=== PATIENT | male | born 1935 | race Caucasian/White ===

== ENCOUNTER 2018-04-02 20:50 | Inpatient (IN) | payer MEDICARE, OTHER ==
[~2018-04-02] VITALS: Ht 177.8 cm; Wt 78.9 kg
[~2018-04-02 20:50] MED LIST: ACET-77 PO; CLOP75TA28 PO; DONE10TA12 PO; DONE5TAB30; DONE5TAB8 PO; MEMA7CAP PO; MULT-35 PO; NORM2DIS3 IV; OMEP20CA12 PO; ONDA4VIA28 IV; OSLT75C PO; PRD20T PO; SIMV20TA3 PO; TRIA16.5 NS
[2018-04-02 21:10] LABS: BASOPHILS % (AUTO) 0 % (0-10); EOSINOPHILS # (AUTO) 0.1 10^3/uL (0.0-0.3); EOSINOPHILS % (AUTO) 2 % (0-10); HEMATOCRIT 41 % (40-54); LYMPHOCYTES # (AUTO) 0.8 X 10^3 (1.0-4.0); LYMPHOCYTES % (AUTO) 12 % (12-44); MEAN CORPUSCULAR HEMOGLOBIN 32 PG (25-34); MEAN CORPUSCULAR HGB CONC 34 G/DL (32-36); MEAN CORPUSCULAR VOLUME 94 FL (80-99); MONOCYTES # (AUTO) 0.8 X 10^3 (0.0-1.0); MONOCYTES % (AUTO) 11 % (0-12); NEUTROPHILS # (AUTO) 5.1 X 10^3 (1.8-7.8); NEUTROPHILS % (AUTO) 74 % (42-75); PLATELET COUNT 230 10^3/uL (130-400); RED BLOOD COUNT 4.37 10^6/uL (4.35-5.85); WHITE BLOOD COUNT 6.8 10^3/uL (4.3-11.0)
[2018-04-02] MEDS ORDERED: ASPIRIN 81 MG CHEW (CHILDREN'S ASA) PO ONE (21:15)
[2018-04-02 21:21] LABS: INR 1.1 (0.8-1.4)
[2018-04-02 21:31] LABS: ALANINE AMINOTRANSFERASE 34 U/L (0-55); ALBUMIN 4.2 GM/DL (3.2-4.5); ALKALINE PHOSPHATASE 79 U/L (40-136); AMYLASE 65 U/L (25-125); BILIRUBIN,TOTAL 1.2 MG/DL (0.1-1.0); BUN/CREATININE RATIO 16; CALCIUM 9.3 MG/DL (8.5-10.1); CARBON DIOXIDE 26 MMOL/L (21-32); CHLORIDE 104 MMOL/L (98-107); CREATINE KINASE 85 U/L (30-200); CREATININE SERUM 0.86 MG/DL (0.60-1.30); GFR ESTIMATED > 60; GLUCOSE 129 MG/DL (70-105); LIPASE 15 U/L (8-78); MAGNESIUM 2.5 MG/DL (1.8-2.4); POTASSIUM 3.6 MMOL/L (3.6-5.0); SODIUM 138 MMOL/L (135-145); TOTAL PROTEIN 6.8 GM/DL (6.4-8.2)
[2018-04-02 21:38] LABS: CREATINE KINASE MB 2.2 NG/ML (<6.6); MYOGLOBIN SERUM 66.4 NG/ML (10.0-92.0)
--- NOTE | 2018-04-02 21:41 | Diagnostic Imaging Report ---
INDICATION: Shortness of breath, chest pain. COMPARISON: 05/26/2015. EXAMINATION: Single view of the chest was obtained. FINDINGS: Complete opacification of the right hemithorax. The heart is enlarged. There is mediastinal shift to the left. The left lung is clear. There is no pneumothorax. Osseous structures are age-appropriate. IMPRESSION: Complete opacification of the right hemithorax, probably large effusion. Underlying mass not excluded. Recommend CT imaging. Dictated by: Dictated on workstation # [id number]
[2018-04-02] MEDS ORDERED: IOHEXOL 350 MG/ML 150 ML (OMNIPAQUE 350) VIAL IV ONE (22:45)
[2018-04-02] MEDS ORDERED: NS 250 ML (IVPB) BAG IV ONE (22:45)
[2018-04-02] MEDS ORDERED: morphine INJ 10 MG/ML 1ML (SYR OR VIAL) IVP STA (22:58)
[2018-04-03] VITALS (8 sets, daily range): BP systolic 115–175; BP diastolic 65–109
[2018-04-03] MEDS ORDERED: ONDANSETRON 4 MG/2 ML (SDV) Z0FRAN ONE (01:28)
[2018-04-03] MEDS ORDERED: ONDANSETRON 4 MG/2 ML (SDV) Z0FRAN IVP PRN (01:30)
[2018-04-03] MEDS ORDERED: ESCI10TA55 PO (02:20)
[2018-04-03] MEDS ORDERED: MEMA14CA5 PO (02:20)
[2018-04-03] MEDS ORDERED: ASPI-808 PO (02:20)
[2018-04-03] MEDS ORDERED: ATOR10TA66 PO (02:20)
[2018-04-03] MEDS ORDERED: morphine INJ 4 MG/ML 1 ML (VIAL/SYRINGE) IV PRN (03:30)
--- NOTE | 2018-04-03 05:15 | ED Chest Pain ---
General Chief Complaint: Chest Pain Stated Complaint: LARGE PLEURAL EFFUSION W COLLAPSE OF RT LUNG Nursing Triage Note: PT AMB TO ED REPORTING DISCOMFORT IN CHEST. VAGUE DESCRIPTIONS AND HX OFFERED. PT ACCOMPANIED BY A FEMALE FRIEND REPORTING DPOA. PT HAS DEMENTIA. SOA IS NOTED Nursing Sepsis Screen: No Definite Risk Source: patient (POOR HISTORIAN, HX OF DEMENTIA), other (FEMALE FRIEND / ALSO DPOA GIVES MOST OF INFORMATION) History of Present Illness Date Seen by Provider: Apr 02, 2018 Time Seen by Provider: 21:00 Initial Comments PT ARRIVES VIA POV WITH FEMALE FRIEND PT STATES "JUST GOT DIZZY" INITIALLY PT COULD NOT GIVE ANY OTHER SYMPTOMS, AND DENIED CHEST PAIN PT LATER ADMITS TO SHORTNESS OF BREATH ON DIRECT QUESTIONING, BUT DOES NOT VOLUNTEER THIS INFORMATION. FEMALE WITH PT STATES THAT 15 MINUTES PRIOR TO ARRIVAL, PT WAS C/O CHEST PAIN AND HE LOOKED SHORT OF BREATH. SYMPTOMS BEGAN WHILE SITTING AND WATCHING TV. NO OTHER INFORMATION IS OBTAINABLE AT THIS TIME PCP: DR. STRONG Allergies and Home Medications Allergies Coded Allergies: No Known Drug Allergies (Unverified , 10/23/11) Home Medications Acetaminophen 500 Mg Tablet, 500 MG PO Q4H PRN for MILD PAIN Prescribed by: BOSTON BARGER on 05/31/15 0948 Aspirin 325 Mg Tablet, 325 MG PO DAILY, (Reported) Atorvastatin Calcium 10 Mg Tablet, 10 MG PO HS, (Reported) Clopidogrel Bisulfate 75 Mg Tablet, 75 MG PO DAILY Prescribed by: BOSTON BARGER on 05/31/15 0948 Donepezil HCl 10 Mg Tablet, 10 MG PO HS, (Reported) Escitalopram Oxalate 10 Mg Tablet, 10 MG PO DAILY, (Reported) Memantine HCl 14 Mg Cap.spr.24, 14 MG PO DAILY, (Reported) Multivitamin 1 Each Tablet, 1 TAB PO DAILY, (Reported) Patient Home Medication List Home Medication List Reviewed: Yes Review of Systems Constitutional: see HPI, dizziness, weight loss (7# LOSS IN LAST MONTH), other (MINIMAL INFORMATION OBTAINABLE FROM PT) Respiratory: See HPI, Shortness of Air Cardiovascular: See HPI, Chest Pain Past [place]ae-Qpoezo-Yzjtxs Hx Patient Social History Alcohol Use: Denies Use Recreational Drug Use: No 2nd Hand Smoke Exposure: No Recent Foreign Travel: No Contact w/Someone Who Travel: No Recent Infectious Disease Expo: No Recent Hopitalizations: No Immunizations Up To Date Date of Pneumonia Vaccine: May 10, 2010 Date of Influenza Vaccine: May 11, 2015 Seasonal Allergies Seasonal Allergies: No Past Medical History Surgeries: Yes Abdominal, Appendectomy Respiratory: No Currently Using CPAP: No Currently Using BIPAP: No Cardiac: Yes High Cholesterol Neurological: Yes Dementia, Stroke Reproductive Disorders: No Sexually Transmitted Disease: No Genitourinary: No Gastrointestinal: No Musculoskeletal: No Endocrine: No HEENT: No Cancer: Yes (NON-HODGKINS LYMPHOMA, 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 0.0oz. 87.424233cm; 27.6 BMI Method:Stated General Appearance: WD/WN, Other (MILDLY DYSPNEIC) Neck: Normal Inspection, Non Tender, Supple Respiratory: No Accessory Muscle Use, Decreased Breath Sounds; No Rales, No Rhonci; Other (DIMINSHED ON RIGHT. 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 SOMEWHAT CONFUSED TO SITUTAION. POOR MEMORY. ) Skin: Normal Color, Warm/Dry Progress/Results/Core Measures Results/Orders Lab Results Laboratory Tests Test 04/02/18 21:00 Range/Units White Blood Count 6.8 4.3-11.0 10^3/uL Red Blood Count 4.37 4.35-5.85 10^6/uL Hemoglobin 14.0 13.3-17.7 G/DL Hematocrit 41 40-54 % Mean Corpuscular Volume 94 80-99 FL Mean Corpuscular Hemoglobin 32 25-34 PG Mean Corpuscular Hemoglobin Concent 34 32-36 G/DL Red Cell Distribution Width 14.0 10.0-14.5 % Platelet Count 230 130-400 10^3/uL Mean Platelet Volume 10.0 7.4-10.4 FL Neutrophils (%) (Auto) 74 42-75 % Lymphocytes (%) (Auto) 12 12-44 % Monocytes (%) (Auto) 11 0-12 % Eosinophils (%) (Auto) 2 0-10 % Basophils (%) (Auto) 0 0-10 % Neutrophils # (Auto) 5.1 1.8-7.8 X 10^3 Lymphocytes # (Auto) 0.8 L 1.0-4.0 X 10^3 Monocytes # (Auto) 0.8 0.0-1.0 X 10^3 Eosinophils # (Auto) 0.1 0.0-0.3 10^3/uL Basophils # (Auto) 0.0 0.0-0.1 10^3/uL Prothrombin Time 14.0 12.2-14.7 SEC INR Comment 1.1 0.8-1.4 Activated Partial Thromboplast Time 32 24-35 SEC Sodium Level 138 135-145 MMOL/L Potassium Level 3.6 3.6-5.0 MMOL/L Chloride Level 104 98-107 MMOL/L Carbon Dioxide Level 26 21-32 MMOL/L Anion Gap 8 5-14 MMOL/L Blood Urea Nitrogen 14 7-18 MG/DL Creatinine 0.86 0.60-1.30 MG/DL Estimat Glomerular Filtration Rate > 60 BUN/Creatinine Ratio 16 Glucose Level 129 H 70-105 MG/DL Calcium Level 9.3 8.5-10.1 MG/DL Magnesium Level 2.5 H 1.8-2.4 MG/DL Total Bilirubin 1.2 H 0.1-1.0 MG/DL Aspartate Amino Transf (AST/SGOT) 32 5-34 U/L Alanine Aminotransferase (ALT/SGPT) 34 0-55 U/L Alkaline Phosphatase 79 40-136 U/L Total Creatine Kinase 85 30-200 U/L Creatine Kinase MB 2.2 <6.6 NG/ML Myoglobin 66.4 10.0-92.0 NG/ML Troponin I < 0.30 <0.30 NG/ML B-Type Natriuretic Peptide 48.8 <100.0 PG/ML Total Protein 6.8 6.4-8.2 GM/DL Albumin 4.2 3.2-4.5 GM/DL Amylase Level 65 25-125 U/L Lipase 15 8-78 U/L My Orders Orders - TIN RAMOS DO Cbc With Automated Diff (04/02/18 21:04) Magnesium (04/02/18 21:04) Chest 1 View, Ap/Pa Only (04/02/18 21:04) Ekg Tracing (04/02/18 21:04) Cardiac Profile 1 (04/02/18 21:04) Comprehensive Metabolic Panel (04/02/18 21:04) Myoglobin Serum (04/02/18 21:04) Protime With Inr (04/02/18 21:04) Partial Thromboplastin Time (04/02/18 21:04) O2 (04/02/18 21:04) Monitor-Rhythm Ecg Trace Only (04/02/18 21:04) Aspirin Chewable Tablet (Baby Aspirin Ch (04/02/18 21:15) Saline Lock/Iv-Start (04/02/18 21:04) Creatine Kinase (04/02/18 21:04) Creatine Kinase Mb (04/02/18 21:04) Lipase (04/02/18 21:04) Amylase (04/02/18 21:04) BNP (04/02/18 21:04) Ct Angio Chest W (04/02/18 21:41) Iohexol Injection (Omnipaque 350 Mg/Ml 1 (04/02/18 22:45) Ns (Ivpb) (Sodium Chloride 0.9%) (04/02/18 22:45) Medications Given in ED Current Medications Medications Dose Ordered Sig/Erica Route Start Time Stop Time Status Last Admin Dose Admin Aspirin 324 mg ONCE ONCE PO 04/02/18 21:15 04/02/18 21:16 DC 04/02/18 21:17 324 MG Iohexol 150 ml ONCE ONCE IV 04/02/18 22:45 04/02/18 22:46 DC 04/02/18 22:41 125 ML Sodium Chloride 250 ml ONCE ONCE IV 04/02/18 22:45 04/02/18 22:46 DC 04/02/18 22:41 80 ML Vital Signs/I&O 04/02/18 04/02/18 04/02/18 20:51 20:51 20:55 Temp 97.8 Pulse 70 Resp 32 B/P (MAP) 182/113 (136) Pulse Ox 91 96 O2 Delivery Nasal Cannula Room Air Nasal Cannula O2 Flow Rate 2.0 2.00 Blood Pressure Mean: 121 Progress Progress Note : Progress Note O2 SATS 91% ON ROOM AIR, UP TO 96% ON 2L/NC NO DETERIORATION IN PT'S CONDITION DURING ER STAY AFTER REVIEWING RADIOLOGICAL TESTS WITH PT AND FEMALE FRIEND., PT STATES A COUPLE OF TIMES THAT HIS RIGHT CHEST HURTS AND IT FEELS REALLY HEAVY. MORPHINE ORDERED FOR PAIN Initial ECG Impression Date: Apr 02, 2018 Initial ECG Impression Time: 20:58 Initial ECG Rate: 69 Initial ECG Rhythm: Normal Sinus Initial ECG Impression: Nonspecific Changes Diagnostic Imaging Comments CXR--COMPLETE OPACIFICATION OF ENTIRE RIGHT LUNG, PER RADIOLOGIST REPORT @ 5610 CT CHEST ANGIOGRAM--NO CENTRAL P.E. VERY LARGE RIGHT PLEURAL EFFUSION COMPLETELY OPACIFIES RIGHT HEMITHORAX. COMPLETE COLLAPSE OF RIGHT LUNG, NODULAR DENSITIES IN RIGHT LOWER HEMITHORAX, MEDIASTINAL NODES--PER [facility] VIA FAX @ [phone] Reviewed: Reviewed by Me Departure Communication (Admissions) [id number]--SPOKE WITH DR. STRONG, ACCEPTS PT FOR ADMIT. ORDERS NOTED. Impression Primary Impression: LARGE RIGHT PLEURAL EFFUSION Additional Impressions: Collapse of right lung Mediastinal lymphadenopathy Hx of non-Hodgkin's lymphoma Hypoxia Disposition: ADMITTED INPATIENT Condition: Improved Admissions Decision to Admit Reason: Admit from ER (General) Decision to Admit/Date: Apr 02, 2018 Time/Decision to Admit Time: 22:45 Departure-Patient Inst. Referrals: EDSON STRONG DO (PCP) Primary Care Physician TIN RAMOS DO Apr 03, 2018 05:15
[2018-04-03 06:20] LABS: BASOPHILS % (AUTO) 0 % (0-10); EOSINOPHILS % (AUTO) 0 % (0-10); HEMATOCRIT 39 % (40-54); HEMOGLOBIN 13.4 G/DL (13.3-17.7); LYMPHOCYTES # (AUTO) 0.6 X 10^3 (1.0-4.0); LYMPHOCYTES % (AUTO) 6 % (12-44); MEAN CORPUSCULAR HEMOGLOBIN 33 PG (25-34); MEAN CORPUSCULAR HGB CONC 35 G/DL (32-36); MEAN CORPUSCULAR VOLUME 95 FL (80-99); MEAN PLATELET VOLUME 10.6 FL (7.4-10.4); MONOCYTES # (AUTO) 0.8 X 10^3 (0.0-1.0); MONOCYTES % (AUTO) 9 % (0-12); NEUTROPHILS # (AUTO) 7.7 X 10^3 (1.8-7.8); NEUTROPHILS % (AUTO) 85 % (42-75); PLATELET COUNT 193 10^3/uL (130-400); RED BLOOD COUNT 4.09 10^6/uL (4.35-5.85); RED CELL DISTRIBUTION WIDTH 13.6 % (10.0-14.5); WHITE BLOOD COUNT 9.1 10^3/uL (4.3-11.0)
[2018-04-03 06:36] LABS: ALANINE AMINOTRANSFERASE 36 U/L (0-55); ALBUMIN 3.8 GM/DL (3.2-4.5); ALKALINE PHOSPHATASE 77 U/L (40-136); BILIRUBIN,TOTAL 0.9 MG/DL (0.1-1.0); BUN/CREATININE RATIO 16; CALCIUM 8.9 MG/DL (8.5-10.1); CARBON DIOXIDE 25 MMOL/L (21-32); CHLORIDE 103 MMOL/L (98-107); CHOLESTEROL 119 MG/DL (< 200); CREATININE SERUM 0.81 MG/DL (0.60-1.30); GFR ESTIMATED > 60; GLUCOSE 111 MG/DL (70-105); HDL CHOLESTEROL 30 MG/DL (40-60); SODIUM 137 MMOL/L (135-145); TOTAL PROTEIN 6.1 GM/DL (6.4-8.2); TRIGLYCERIDES 102 MG/DL (<150); VLDL CHOLESTEROL 20 MG/DL (5-40)
--- NOTE | 2018-04-03 07:10 | Pulmonary Consultation ---
History of Present Illness History of Present Illness Date of Consultation 04/03/18 07:05 Time Seen by Provider: 07:05 Date of Admission History of Present Illness 82yo with hx of dementia and nonhodgkins lymphoma presented to ED secondary to CP. CT scan of chest was done and showed large right pleural effusion with opacification of the right lung. I am consulted for pulmonary management. No known prior episode. No prior thoracentesis. Allergies and Home Medications Allergies Coded Allergies: No Known Drug Allergies (Unverified , 10/23/11) Home Medications Acetaminophen 500 Mg Tablet, 500 MG PO Q4H PRN for MILD PAIN Prescribed by: BOSTON BARGER on 05/31/15 0948 Aspirin 325 Mg Tablet, 325 MG PO DAILY, (Reported) Atorvastatin Calcium 10 Mg Tablet, 10 MG PO HS, (Reported) Clopidogrel Bisulfate 75 Mg Tablet, 75 MG PO DAILY Prescribed by: BOSTON BARGER on 05/31/15 0948 Donepezil HCl 10 Mg Tablet, 10 MG PO HS, (Reported) Escitalopram Oxalate 10 Mg Tablet, 10 MG PO DAILY, (Reported) Lisinopril 10 Mg Tablet, 10 MG PO DAILY Prescribed by: MELISSA BRANTLEY on 04/09/18 0944 Memantine HCl 14 Mg Cap.spr.24, 14 MG PO DAILY, (Reported) Pantoprazole Sodium 40 Mg Tablet.dr, 40 MG PO DAILY, (Reported) Vit A/C/E/Zinc/Co 1 Cap Capsule, 1 CAP PO BID, (Reported) Past Nqwqnvz-Ubmbtw-Fzrvgw Hx Patient Social History Alcohol Use: Denies Use Recreational Drug Use: No 2nd Hand Smoke Exposure: No Recent Foreign Travel: No Contact w/Someone Who Travel: No Recent Infectious Disease Expo: No Recent Hopitalizations: No Immunizations Up To Date Date of Pneumonia Vaccine: May 10, 2010 Date of Influenza Vaccine: May 11, 2015 Seasonal Allergies Seasonal Allergies: No Past Medical History Surgeries: Yes Abdominal, Appendectomy Respiratory: No Currently Using CPAP: No Currently Using BIPAP: No Cardiac: Yes High Cholesterol Neurological: Yes Dementia, Stroke Reproductive Disorders: No Sexually Transmitted Disease: No Genitourinary: No Gastrointestinal: No Musculoskeletal: No Endocrine: No HEENT: No Cancer: Yes (NON-HODGKINS LYMPHOMA, 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 Dyspnea Gastrointestinal: No: Nausea, Vomiting, Abdominal Pain, Diarrhea, Constipation , Melena, Hematochezia, Other Neurological: Weakness Sepsis Event Evaluation Height, Weight, BMI Height: 5'10.00" Weight: 185lbs. 0.0oz. 83.139089ch; 27.6 BMI Method:Stated Exam Exam Vital Signs Date Time Temp Pulse Resp B/P (MAP) Pulse Ox O2 Delivery O2 Flow Rate FiO2 04/03/18 06:05 97.2 65 16 175/94 (121) 92 Nasal Cannula 2.00 04/03/18 04:00 96.1 67 16 173/96 (121) 92 Nasal Cannula 2.00 04/03/18 01:38 Nasal Cannula 2.00 04/03/18 00:16 96.0 59 18 144/88 (130) 95 Nasal Cannula 2.00 04/03/18 00:00 95.1 62 18 173/109 (130) 93 Nasal Cannula 2.00 04/02/18 20:55 96 Nasal Cannula 2.00 04/02/18 20:51 97.8 70 32 182/113 (136) 91 Room Air 04/02/18 20:51 Nasal Cannula 2.0 I & O 04/03/18 07:00 Intake Total 0 ml Balance 0 ml Height & Weight Height: 5'10.00" Weight: 185lbs. 0.0oz. 83.913314tz; 27.6 BMI Method:Stated General Appearance: WD/WN, Other (MILDLY DYSPNEIC) Neck: Normal Inspection, Non Tender, Supple Respiratory: No Accessory Muscle Use, Decreased Breath Sounds; No Rales, No Rhonci; Other (DIMINSHED ON RIGHT. 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 SOMEWHAT CONFUSED TO SITUTAION. POOR MEMORY. ) Skin: Normal Color, Warm/Dry Results Lab Laboratory Tests 04/02/18 21:00 04/03/18 05:27 Assessment/Plan Assessment/Plan Large right pleural effusion with opacification of the right lung -Will plan on thoracentesis today -Will repeat CT of chest after thoracentesis to r/o Mass and to ensure reexpansion of lung SOB with CP probably secondary to effusion NAILA TORRES DO Apr 03, 2018 07:10
--- NOTE | 2018-04-03 07:19 | Diagnostic Imaging Report ---
PROCEDURE: CT angiography of the chest with contrast. TECHNIQUE: Multiple contiguous axial images were obtained through the chest after uneventful bolus administration of intravenous contrast. Reconstructed CTA MIP acquisitions were also performed. INDICATION: Chest pain and shortness of breath. FINDINGS: There are no filling defects seen within the pulmonary arteries to suggest pulmonary embolism. The thoracic aorta is normal in caliber without evidence of dissection. There is complete collapse of the right lung with a very large right pleural effusion. There is some pleural calcifications. The left lung is clear. There is no pneumothorax. There appears to be gynecomastia bilaterally. There are degenerative changes in the spine. The visualized intra-abdominal structures are unremarkable. IMPRESSION: Very large right pleural effusion with complete opacification of right hemithorax and collapse of the right lung. No evidence of pulmonary embolism or aortic dissection. Calcified nodules in the right lower hemithorax. Dictated by: Dictated on workstation # [id number]
--- NOTE | 2018-04-03 07:45 | History & Physicial ---
History of Present Illness History of Present Illness Reason for visit/HPI Patient has Alzheimer's and unable to give good history. Patient showed up at emergency room with DPOA. Patient complained of shortness of breath and chest pain. Patient has history of non-Hodgkin's lymphoma approximately 25 years ago. Patient does not know the year. 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 Patient is pleasant. Patient has a history of previous CVA on Plavix and aspirin for that Date of Admission Apr 02, 2018 at 22:45 Time Seen by Provider: 07:36 I consulted on this patient on 04/03/18 07:36 Attending Physician Mario Strong DO Admitting Physician Mario Strong DO Consult Allergies and Home Medications Allergies Coded Allergies: No Known Drug Allergies (Unverified , 10/23/11) Home Medications Acetaminophen 500 Mg Tablet, 500 MG PO Q4H PRN for MILD PAIN Prescribed by: BOSTON BARGER on 05/31/15 0948 Aspirin 325 Mg Tablet, 325 MG PO DAILY, (Reported) Atorvastatin Calcium 10 Mg Tablet, 10 MG PO HS, (Reported) Clopidogrel Bisulfate 75 Mg Tablet, 75 MG PO DAILY Prescribed by: BOSTON BARGER on 05/31/15 0948 Donepezil HCl 10 Mg Tablet, 10 MG PO HS, (Reported) Escitalopram Oxalate 10 Mg Tablet, 10 MG PO DAILY, (Reported) Memantine HCl 14 Mg Cap.spr.24, 14 MG PO DAILY, (Reported) Multivitamin 1 Each Tablet, 1 TAB PO DAILY, (Reported) Patient Home Medication List Home Medication List Reviewed: Yes Past Sqdqqht-Fykxbk-Zczrlf Hx Patient Social History Employed/Student: unemployed Alcohol Use: Denies Use Recreational Drug Use: No 2nd Hand Smoke Exposure: No Physical Abuse Screen: No Sexual Abuse: No Recent Foreign Travel: No Contact w/other who traveled: No Recent Hopitalizations: No Recent Infectious Disease Expo: No Immunizations Up To Date Date of Pneumonia Vaccine: May 10, 2010 Date of Influenza Vaccine: May 11, 2015 Seasonal Allergies Seasonal Allergies: No Surgeries Yes Abdominal, Appendectomy Respiratory No Currently Using CPAP: No Currently Using BIPAP: No Cardiovascular Yes High Cholesterol Neurological Yes Dementia, Stroke Reproductive System Hx Reproductive Disorders: No Sexually Transmitted Disease: No Genitourinary No Gastrointestinal No Musculoskeletal No Endocrine History of Endocrine Disorders: No HEENT History of HEENT Disorders: No Cancer Yes (NON-HODGKINS LYMPHOMA, 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53, 1895) Lymphoma Did You Recieve Any Treatments: Yes Type of Treatment: Chemotherapy Psychosocial History of Psychiatric Problem: No Integumentary History of Skin or Integumenta: No Blood Transfusions History of Blood Disorders: No Family Medical History Family Hx: Hypertension 19 FATHER Constitutional: no symptoms reported EENTM: no symptoms reported Respiratory: short of breath Cardiovascular: no symptoms reported Gastrointestinal: no symptoms reported Genitourinary: no symptoms reported Physical Exam Vital Signs Vital Signs - First Documented 04/02/18 20:51 Temp 97.8 Pulse 70 Resp 32 B/P (MAP) 182/113 (136) Pulse Ox 91 O2 Delivery Nasal Cannula O2 Flow Rate 2.0 Capillary Refill : Less Than 3 Seconds Height, Weight, BMI Height: 5'10.00" Weight: 185lbs. 0.0oz. 83.525025wp; 27.6 BMI Method:Stated General Appearance: No Apparent Distress, WD/WN Eyes: Bilateral Eye Normal Inspection HEENT: Normal ENT Inspection Neck: Full Range of Motion Respiratory: Chest Non Tender, No Accessory Muscle Use, No Respiratory Distress , Other (Decreased breath sounds on one side of lung) Cardiovascular: Regular Rate, Rhythm Gastrointestinal: Non Tender, Soft Assessment/Plan Assessment and Plan Large pleural effusion with opacification of right lung. Collapse of right lung. Mediastinal lymphadenopathy. History of non-Hodgkin's lymphoma. Previous CVA. Patient needs thoracentesis and short of breath. Patient to get it today Admission Diagnosis Admission Status: Inpatient Order (span 2 midnights) Reason for Inpatient Admission: Short of the air. Hypoxia. Chest pain. History of non-Hodgkin's lymphoma. Alzheimer's Clinical Quality Measures AMI/AHF: ASA po Prior to arrival: No DVT/VTE Risk/Contraindication: Risk Factor Score Per Nursin RFS Level Per Nursing on Admit: 4+=Very High MARIO STRONG DO Apr 03, 2018 07:44
[2018-04-03] MEDS ORDERED: LIDOCAINE 1% INJ 20 ML 20 ML VIAL ONE (10:01)
--- NOTE | 2018-04-03 10:42 | Pulmonary Procedures ---
Pulmonary Procedures Date of Procedure Date of Service: Apr 03, 2018 Procedure: US guided right complex thoracentesis Preop DX: RIGHT pleural effusion post op DX: 2445cc of yellow fluid obtained from pleural space Complications: None After informed consent obtained US was used to localize pleural fluid. Pt has R pleural effusions. Skin was anesthetized at approximately the 10th ICS posterior axillary line. Thoracentesis needle was advanced through the right 10th ICS posterior axillary line. Needle was removed and catheter left in place.2445cc of yellow fluid obtained using vacuum bottles. Catheter was then removed. Pt tolerated procedure well. No complications noted. stat CXR is pending NAILA TORRES DO Apr 03, 2018 10:42
--- NOTE | 2018-04-03 11:10 | Diagnostic Imaging Report ---
Indication: Post thoracentesis Frontal chest obtained at 1056 hrs am, and compared with 04/02/2018. A large right pleural effusion remains but it has decreased in size compared to yesterday with some aeration of the right upper lobe now present. There is no pneumothorax following thoracentesis. Left lung is clear. The heart is borderline in size. IMPRESSION: No pneumothorax following right thoracentesis. There is some increased aeration of the right apex compared to yesterday. There is still a large amount of residual pleural fluid on the right-side but it has decreased compared to yesterday. Dictated by: Dictated on workstation # [id number]
[2018-04-03] MEDS ORDERED: IOHEXOL 350 MG/ML 100 ML (OMNIPAQUE 350) VIAL IV ONE (11:15)
[2018-04-03] MEDS ORDERED: CATHETER FLUSH 10 ML SYR IV PRN (11:15)
[2018-04-03] MEDS ORDERED: NS 250 ML (IVPB) BAG IV ONE (11:15)
[2018-04-03 11:56] LABS: GLUCOSE,BODY FLUID 55 MG/DL
[2018-04-03 11:57] LABS: BODY FLUID TRIGLYCERIDES 43 MG/DL; LDH,BODY FLUID 142 U/L; TOTAL PROTEIN,BODY FLUID 4.3 G/DL
--- NOTE | 2018-04-03 12:27 | Diagnostic Imaging Report ---
PROCEDURE: CT chest with contrast, CT abdomen and pelvis with and without contrast. TECHNIQUE: Pre and post intravenous contrast axial imaging of the abdomen and pelvis and post contrast axial imaging of the chest were performed. INDICATION: Non-Hodgkin's lymphoma. FINDINGS: The recent CTA chest exam of 04/02/2018 noted that the right lung was completely opacified by atelectasis/infiltrate and fluid. On this exam, there is now partial aeration of the right upper lobe. There is still a sizable right pleural effusion present as well as collapse of the right middle lobe and right lower lobe. The amount of fluid, however, has diminished since the prior exam, and there is no longer any shift of the heart or mediastinum to the left. There is no clear evidence for a mass to account for the pleural fluid or collapse of the right lung base. If further study is desired, however, then bronchoscopy would be recommended. The left lung is generally clear and well aerated. The heart is stable in size. The aorta is not abnormally dilated, and there is still no evidence for a dissection. There is no defect within the pulmonary arteries to indicate a pulmonary embolus, although the pulmonary arteries to the right lung base are difficult to evaluate due to the atelectasis/infiltrate. There is no mediastinal or hilar adenopathy. The thyroid gland is generally unremarkable. The sections through the abdomen and pelvis show no sign of an acute abnormality. The liver, spleen, pancreas, adrenals, kidneys, gallbladder, aorta, and inferior vena cava show no sign of an acute abnormality. The stomach is partially filled with fluid and consequently difficult to assess. There is no evidence for diverticulosis or diverticulitis of the colon. The appendix was not particularly well visualized, but there are no indirect signs of acute appendicitis. The prostate gland is not enlarged. The urinary bladder is grossly unremarkable. The bone windows show no sign of a fracture or of a destructive lesion. IMPRESSION: 1. The appearance of the chest has improved since the prior exam as the right upper lung is better aerated, and there has been a decrease in the amount of fluid in the right lung base. There is no longer any shift of the heart or mediastinum to the left either. The overall appearance of the chest is otherwise stable. 2. There is no mass lesion involving the right lung to account for the atelectasis/infiltrate and pleural fluid. If further study is desired, then bronchoscopy would be recommended. 3. There is no acute abnormality of the abdomen or pelvis. Dictated by: Dictated on workstation # [id number]
[2018-04-03 13:22] LABS: BODY FLUID APPEARENCE CLEAR; BODY FLUID COLOR YELLOW; BODY FLUID RBC COUNT 10 /uL; BODY FLUID SOURCE PLEURAL; BODY FLUID WBC TOTAL COUNT 32 /uL
[2018-04-03 13:35] LABS: BODY FLUID PH 7.7
[2018-04-03 15:06] LABS: BF OTHER CELLS 16 %; LYMPHOCYTES,BODY FLUID 72 %
[2018-04-03 16:33] LABS: HEMOGLOBIN 13.6 G/DL (13.3-17.7)
[2018-04-03] MEDS ORDERED: PANT40TA3 PO (18:26)
[2018-04-03] MEDS ORDERED: ACETAMINOPHEN 500 MG TAB (TYLENOL) PO PRN (19:00)
[2018-04-03] MEDS: DONEPEZIL 10 MG (ARICEPT) TAB PO SCH (20:28)
[2018-04-03] MEDS: ATORVASTATIN 10 MG (LIPITOR) TABLET PO SCH (20:28)
[2018-04-03] MEDS: NS IV 1000 ML 1,000 ML IV SCH (20:29)
--- NOTE | 2018-04-03 20:44 | CONSULTATION REPORT ---
DATE OF SERVICE: 04/03/2018 Patient is admitted to room 405. REFERRING AND PRIMARY PHYSICIAN: Mario David D.O. ASSESSMENT: 1. An 82-year-old male admitted with increasing shortness of breath, cough and chest pressure. 2. Admission scan showing significant right pleural effusion with complete atelectasis of the right lung and shift of mediastinum to the left. This is of undetermined etiology. 3. Remote history of non-Hodgkin's lymphoma treated approximately 30 years ago in [place]. The patient and his DPOA does not remember any other details other than the fact that he was treated probably with ProMACE-CytaBOM regimen for six cycles. RECOMMENDATIONS: 1. Agree with diagnostic and therapeutic thoracentesis. We will await fluid cytology, flow cytometry as well as chemistries to try to determine the etiology. 2. Continue supportive care as you are doing. 3. Once the pathology reports are available, I will meet with the patient and his DPOA and discuss about any further recommendations. HISTORY OF PRESENT ILLNESS: The patient is an 82-year-old male with dementia, who is complaining of increasing shortness of breath and cough since the last one month. His industry analyst mentioned that he started having chest pressure yesterday and he was brought to the emergency room. Scan showed significant right-sided pleural effusion with complete white-out. He underwent diagnostic and therapeutic thoracentesis earlier today with the fluid being sent for appropriate testing. He is breathing better, but still has cough with deep breaths, but he is more comfortable. He denied any chest pressure today. PAST MEDICAL HISTORY: Significant for non-Hodgkin's lymphoma approximately 30 years ago. The patient and his industry analyst remember that he was treated at [place] at [facility] and most likely with the ProMACE-CytaBOM regimen for six cycles. Since then he has not had any recurrence and continued followups for several years. No other major medical problems. PRIOR SURGERIES: Include tonsillectomy and adenoidectomy in childhood as well as an appendectomy. SOCIAL HISTORY: The patient is . He is living with his industry analyst/DPOA, Tom. She is present during the interview. He has a daughter who lives in [place]. He had a son who is . Also has three grandchildren and three great grandchildren. 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 He denied tobacco use, alcohol use or recreational drug use. FAMILY HISTORY: Significant for his mother who of breast cancer at the age of 45 years. His father of coronary artery disease at the age of 53. He has one full sibling, a sister who is alive and lives in [place]. No other major medical problems in the family that he could remember. PHYSICAL EXAMINATION: GENERAL: Today showed an elderly male, well-developed, well-nourished, awake and answering simple questions appropriately, but having difficulty remembering details. VITAL SIGNS: Temperature was 96.5, pulse rate 64, respirations 24, blood pressure 143/70, pulse oximetry 92% on 2 liters of oxygen by nasal cannula. HEENT: Normocephalic with male pattern baldness, extraocular muscles intact, conjunctivae pink, oral mucosa moist. NECK: Supple, with no JVD. No cervical, supraclavicular or axillary lymphadenopathy palpable. CHEST: Symmetrical. Right lung with absent breath sounds in the lower half. A few scattered wheezes in the right upper lung field. Left lung fairly clear to auscultation without wheezes or rales. CARDIOVASCULAR: Regular with a few missed beats. No murmurs or gallops heard. ABDOMEN: Soft, nontender with no hepatosplenomegaly or other masses palpable. EXTREMITIES: Showed no edema. NEUROLOGIC: Showed no focal motor deficits. LABORATORY DATA: CBC done today showed white count of 9.1, hemoglobin 13.4, platelet count 193,000 with neutrophil count 7.7 and lymphocyte count 0.6. Chemistry panel today showed normal electrolytes. BUN was 13 and creatinine 0.81 with GFR more than 60 mL per minute. Nonfasting glucose was 111. Liver function studies were within normal limits. CT angiogram of the chest done today morning showed very large right pleural effusion with complete opacification of right hemithorax and collapse of the right lung. No evidence of pulmonary embolus or aortic dissection. Calcified nodules in the right lower hemithorax. Thank you for allowing me to participate in this patient's care. I will follow the patient with you and make appropriate recommendations. Job ID: [id number] DocumentID: [id number] Dictated Date: 04/03/2018 18:12:30 Flare Breaker Date: 04/03/2018 20:44:02 Dictated By: JEN HOUSTON MD [facility]ENTER[facility]rate[facility]
[2018-04-04 03:12] VITALS: BP 118/71
[2018-04-04 06:23] LABS: HEMOGLOBIN 12.7 G/DL (13.3-17.7); MEAN PLATELET VOLUME 10.3 FL (7.4-10.4); RED BLOOD COUNT 4.01 10^6/uL (4.35-5.85); RED CELL DISTRIBUTION WIDTH 13.7 % (10.0-14.5); WHITE BLOOD COUNT 7.5 10^3/uL (4.3-11.0)
[2018-04-04 06:42] LABS: ALANINE AMINOTRANSFERASE 24 U/L (0-55); ALBUMIN 3.3 GM/DL (3.2-4.5); ALKALINE PHOSPHATASE 68 U/L (40-136); BILIRUBIN,TOTAL 1.1 MG/DL (0.1-1.0); BUN/CREATININE RATIO 14; CALCIUM 8.6 MG/DL (8.5-10.1); CARBON DIOXIDE 26 MMOL/L (21-32); CHLORIDE 103 MMOL/L (98-107); CREATININE SERUM 0.77 MG/DL (0.60-1.30); GFR ESTIMATED > 60; GLUCOSE 104 MG/DL (70-105); SODIUM 136 MMOL/L (135-145); TOTAL PROTEIN 5.1 GM/DL (6.4-8.2)
--- NOTE | 2018-04-04 07:56 | Progress Note (SOAP) ---
Subjective Time Seen by Provider: 07:45 Subjective/Events-last exam Patient had thoracentesis yesterday. Patient not eating much. IV started last night. CAT scan look better yesterday. Waiting for path report. Waiting to see if fluid returns to lung Objective Exam Vital Signs Date Time Temp Pulse Resp B/P (MAP) Pulse Ox O2 Delivery O2 Flow Rate FiO2 04/04/18 03:12 97.7 70 18 118/71 (87) 90 Nasal Cannula 2.00 04/04/18 01:00 68 04/03/18 23:17 98.6 63 15 115/65 (82) 92 Nasal Cannula 2.00 04/03/18 20:29 Nasal Cannula 2.00 04/03/18 19:48 98.1 66 20 146/77 (100) 91 Nasal Cannula 2.00 04/03/18 19:00 61 04/03/18 15:50 96.5 64 24 143/70 (94) 92 Nasal Cannula 2.00 04/03/18 13:00 56 04/03/18 12:00 96.9 55 20 133/73 (93) 92 Nasal Cannula 2.00 04/03/18 08:16 Nasal Cannula 2.00 04/03/18 08:00 97.3 61 18 132/74 (93) 93 Nasal Cannula 2.00 I & O 04/04/18 06:59 Intake Total 880 ml Output Total 825 ml Balance 55 ml Capillary Refill : Less Than 3 Seconds General Appearance: No Apparent Distress, WD/WN HEENT: Normal ENT Inspection Neck: Normal Inspection Respiratory: Chest Non Tender, No Accessory Muscle Use, No Respiratory Distress , Decreased Breath Sounds Cardiovascular: Regular Rate, Rhythm, No Murmur Gastrointestinal: non tender, soft Results Lab Laboratory Tests 04/03/18 16:25 04/04/18 05:58 Laboratory Tests 04/03/18 10:20: Body Fluid Source PLEURAL, Body Fluid Color YELLOW, Body Fluid Appearance CLEAR , Body Fluid pH 7.7, Body Fluid WBC 32, Body Fluid RBC 10, Body Fluid Polynuclear WBCs 8, Body Fluid Mononuclear WBCs 4, Body Fluid Lymphocytes 72, Body Fluid Other Cells 16, Body Fluid Glucose 55, Body Fluid Total Protein 4.3, Body Fluid Lactate Dehydrogenase 142, Body Fluid Triglycerides 43 04/03/18 16:25: Hemoglobin 13.6, Hematocrit 39L 04/04/18 05:58: Hemoglobin 12.7L, Hematocrit 38L, White Blood Count 7.5, Red Blood Count 4.01L, Mean Corpuscular Volume 95, Mean Corpuscular Hemoglobin 32, Mean Corpuscular Hemoglobin Concent 34, Red Cell Distribution Width 13.7, Platelet Count 198, Mean Platelet Volume 10.3, Sodium Level 136, Potassium Level 4.0, Chloride Level 103, Carbon Dioxide Level 26, Anion Gap 7, Blood Urea Nitrogen 11, Creatinine 0.77, Estimat Glomerular Filtration Rate > 60, BUN/Creatinine Ratio 14, Glucose Level 104, Calcium Level 8.6, Total Bilirubin 1.1H, Aspartate Amino Transf (AST/SGOT) 24, Alanine Aminotransferase (ALT/SGPT) 24, Alkaline Phosphatase 68, Total Protein 5.1L, Albumin 3.3 Assessment/Plan Assessment/Plan Assess & Plan/Chief Complaint Large pleural effusion with collapse of lung. Alzheimer's. Patient doesn't know what he eats for breakfast History of non-Hodgkin's lymphoma 30 years ago. Clinical Quality Measures Admission Status Admission Dx Large pleural effusion with opacification of right lung. Collapse of right lung. Mediastinal lymphadenopathy. History of non-Hodgkin's lymphoma. Previous CVA. Patient needs thoracentesis and short of breath. Patient to get it today AMI/AHF: ASA po Prior to arrival: No DVT/VTE Risk/Contraindication: Risk Factor Score Per Nursin RFS Level Per Nursing on Admit: 4+=Very High EDSON STRONG DO Apr 04, 2018 07:56
[2018-04-04 08:00] VITALS: BP 150/88
[2018-04-04] MEDS ORDERED: VIT1CAPS5 PO (08:52)
[2018-04-04] MEDS: PANTOPRAZOLE 40 MG (PROTONIX) TAB PO SCH (09:02)
[2018-04-04] MEDS: MEMANTINE 5 MG (NAMENDA) TABLET PO SCH ×2 (09:02→20:21)
--- NOTE | 2018-04-04 10:05 | Diagnostic Imaging Report ---
PA and lateral chest at 823 hours. INDICATION: Respiratory distress. FINDINGS: The previous exam of 04/03/2018 noted that much of the right midlung and right lung base were obscured by atelectasis/infiltrate and fluid. On this study, the right midlung and right lung base do seem slightly better aerated. However, there is a new area of atelectasis/infiltrate in the right upper lobe. A band of atelectasis/infiltrate has also developed in the left lung base. Left lung is otherwise clear. The heart is stable in size. The mediastinum is not widened. The osseous structures are intact. IMPRESSION: There are mixed results. The right midlung and right lung base do seem somewhat better aerated, but a new area of pneumonia/atelectasis has developed in the right upper lobe. A followup study would be recommended for continued evaluation. Dictated by: Dictated on workstation # [id number]
--- NOTE | 2018-04-04 10:31 | Physical Therapy Evaluation ---
PT Evaluation-General Medical Diagnosis Admission Date Apr 02, 2018 at 22:45 Medical Diagnosis: pleural effusion Onset Date: Apr 02, 2018 Therapy Diagnosis Therapy Diagnosis: debility Height/Weight Height (Feet): 5 Height (Inches): 10.00 Weight (Pounds): 184 Weight (Ounces): 1.6 Precautions Precautions/Isolations: Fall Prevention, Standard Precautions, Pressure Ulcer Weight Bear Status Right Lower Extremity: Right Full Weight Bearing Left Lower Extremity: Left Full Weight Bearing Referral Physician: Frankie Reason for Referral: Evaluation/Treatment Medical History Pertinent Medical History: Dementia, Lymphoma Current History EMS secondary to chest discomfort due to large pleural effusion with right collapsed lung Reviewed History: Yes Social History Home: Single Level Current Living Status: Other Family Prior/[facility] Prior Level of Function Functional [place] Measure 0=Not Assessed/NA 4=Minimal Assistance 1=Total Assistance 5=Supervision or Setup 2=Maximal Assistance 6=Modified [place] 3=Moderate Assistance 7=Complete [place] Bed Mobility: 7 Transfers (B,C,W/C) (FIM): 7 Gait: 7 PT Evaluation-Current Subjective Patient is in bed and agrees to PT. Pain Numeric Pain Scale: 0-No Pain Location: No Pain Reported Objective Patient Orientation: Confused Problem Solving: Poor Attachments: Oxygen, IV ROM/Strength ROM Lower Extremities bilateral LE WNL Strength Lower Extremities 4/5 grossly bilaterally Integumentary/Posture Integumentary refer to nursing notes Bowel Incontinence: No Bladder Incontinence: No Posture WFL Neuromuscular (Tone, Coordination, Reflexes) grossly intact Sensory Vision: Functional Hearing: Functional Sensation Right Lower Extremit: Intact Sensation Left Lower Extremity: Intact Transfers Functional [place] Measure 0=Not Assessed/NA 4=Minimal Assistance 1=Total Assistance 5=Supervision or Setup 2=Maximal Assistance 6=Modified [place] 3=Moderate Assistance 7=Complete [place] Transfers (B, C, W/C) (FIM): 7 Scootin Rollin Supine to/from Sit: 7 Sit to/from Stand: 7 Gait Mode of Locomotion: Walk Anticipated Mode of Locomotion: Walk Gait (FIM): 7 Distance (FIM): 3=150 ft Distance: 175' Gait Level of Assist: 7 Gait Assistive Device: None Comments/Gait Description slightly unsteady with self correct. SAO2 decreased to 87% on RA with activity Balance Sitting Static: Normal Sitting Dynamic: Normal Standing Static: Fair Standing Dynamic: Fair Assessment/Needs 82 y.o. male, will be seen short term by skilled PT to ensure safe return to home with family at maximum LOF. Rehab Potential: Fair PT Short Term Goals Short Term Goals Time Frame: Apr 05, 2018 Transfers (B,C,W/C) (FIM): 7 Gait (FIM): 7 Distance (FIM): 3=150 ft Gait Level of Assist: 7 Gait Assistive Device: None PT Plan Treatment/Plan Treatment Plan: Continue Plan of Care Treatment Plan: Education, Functional Activity Mary, Functional Strength, Gait , Safety, Therapeutic Exercise Treatment Duration: Apr 05, 2018 Frequency: 2 times per week Estimated Hrs Per Day: .25 hour per day Patient and/or Family Agrees t: Yes Discharge Recommendations Therapy D/C Recommendations: Home w/ Family Support Time/GCodes Time In: 925 Time Out: 940 Total Billed Treatment Time: 15 Total Billed Treatment 1 visit EVModC 15 min GILSON LYON PT Apr 04, 2018 10:31
[2018-04-04] MEDS: cefTRIAXone INJECTION 1,000 MG in NS (IVPB) 50 ML IV SCH (10:38)
[2018-04-04] MEDS: AZITHROMYCIN INJECTION 500 MG in NS (IVPB) 250 ML IV SCH (11:10)
[2018-04-04 12:00] VITALS: BP 133/76
[2018-04-04] MEDS: NS IV 1000 ML 1,000 ML IV SCH (12:53)
--- NOTE | 2018-04-04 16:04 | Occupational Therapy Eval ---
OT Evaluation-General/PLF Medical Diagnosis Admission Date Apr 02, 2018 at 22:45 Medical Diagnosis: pleural effusion Onset Date: Apr 02, 2018 Therapy Diagnosis Therapy Diagnosis: decr act tolerance, decr funct mobility Height/Weight Height (Feet): 5 Height (Inches): 10.00 Weight (Pounds): 184 Weight (Ounces): 1.6 Precautions Precautions/Isolations: Fall Prevention, Standard Precautions, Pressure Ulcer Safety Interventions: Bed Exit Alarm, Reorient-Attempt, Reorient-PRN Referral Physician: Frankie Referral Reason: Evaluation/Treatment Medical History Pertinent Medical History: CVA (2014 R sided weakness), Dementia, Lymphoma Additional Medical History Recent weight loss, lymphoma 1988 Current History Admitted through ED with SOB, chest pain. Pleural effusion, with collapsed R lung. Over 2 L fluid removed 04-03. Hypoxia, lymphadenopathy Reviewed History: Yes Social History Home: [facility] Current Living Status: Other Family (jose Santos) ADL-Prior Level of Function ADL PLOF Comments Tom reported that he has been able to manage all of his basic self care tasks and doesn't need initiation cues. She indicated that he is very careful about his personal hygiene. 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 He no longer drives. DME/Equipment Comments No equipment in his bathroom OT Current Status Subjective Pt seen in room, up in bed, agreeable to OT. pain reported 0/10 Appearance Alert, cooperative, poor historian Mental Status/Objective Patient Orientation: Person Attachments: Oxygen, Saline Lock, Telemetry Current Hand Dominance: Right Upper Extremity ROM Grossly WFL bilat Upper Extremity Strength Grossly 4+/5 bilat (slightly less R UE) ADL-Treatment ADL-Current Pt was able to get up from bed and walk 175' with no AD with PT, with O2 dropping to 87% on room air. He is able to feed himself but reported he has no appetite. Pt encouraged to get up in recliner, to increase activity tolerance Functional [place] Measure 0=Not Assessed/NA 4=Minimal Assistance 1=Total Assistance 5=Supervision or Setup 2=Maximal Assistance 6=Modified [place] 3=Moderate Assistance 7=Complete IndependenceIRFPAI Quality Coding Scale 6 Independent with activity with or without an assistive device 5 Patient requires set up or clean up by helper. Patient completes activity by themselves 4 Supervision or touching assist (CGA). [place] provide cues , steadying assist 3 The helper provides less than half the effort to complete the activity 2 The helper provides more than half the effort to complete the activity 1 Dependent. The helper does all the effort to complete an activity 7 Patient refused to complete or attempt activity 9 The patient did not perform the activity before the current illness or injury 88 Not attempted due to Medical conditions or safety concerns Education OT Patient Education: Purpose of tx/functional activities, Rehab process Teaching Recipient: Patient, Primary Caregiver Teaching Methods: Discussion Response to Teaching: Verbalize Understanding OT Short Term Goals Short Term Goals Transfers (B,C,W/C) (FIM): 7 OT Care Home Goals Care Home Goals Time Frame: Apr 11, 2018 Eating (FIM): 6 Grooming(FIM): 6 Bathing(FIM): 5 Upper Body Dressing(FIM): 6 Lower Body Dressing(FIM): 6 Toileting(FIM): 6 Toilet/Commode Transfer(FIM): 6 Shower Transfer(FIM): 5 Additional Goals: 1-Demonstrate ADL Tasks, 2-Verbalize Understanding, 3- ImproveStrength/Mary 1=Demonstrate adherence to instructed precautions during ADL tasks. 2=Patient will verbalize/demonstrate understanding of assistive devices/ modifications for ADL. 3=Patient will improve strength/tolerance for activity to enable patient to perform ADL's. OT Education/Plan Problem List/Assessment Assessment: Decreased Activ Tolerance, Dependent Transfers Pt woould benefit from skilled OT to increase his independence in basic self care and to increase his activity tolerance to allow him to safely return home. Discharge Recommendations Plan/Recommendations: Continue POC Treatment Plan/Plan of Care Patient would benefit from OT for education, treatment and training to promote independence in ADL's, mobility, safety and/or upper extremity function for ADL' s. Treatment Duration: Apr 11, 2018 Frequency: 5 times per week Estimated Hrs Per Day: .5 hour per day Agreement: Yes Rehab Potential: Fair Time/GCodes Start Time: 15:35 Stop Time: 15:45 Total Time Billed (hr/min): 10 Billed Treatment Time visit, 10 minutes evaluation low intensity NAV GALVAN OT Apr 04, 2018 16:04
[2018-04-04 16:29] VITALS: BP 128/70
[2018-04-04] MEDS: DONEPEZIL 10 MG (ARICEPT) TAB PO SCH (20:21)
[2018-04-04] MEDS: ATORVASTATIN 10 MG (LIPITOR) TABLET PO SCH (20:21)
[2018-04-04] MEDS ORDERED: RT-ALBUTEROL/IPRATROPIUM 3 ML (DUONEB) VIAL ONE (20:27)
[2018-04-04 20:54] VITALS: BP 173/81
[2018-04-04] MEDS ORDERED: RT-ALBUTEROL/IPRATROPIUM 3 ML (DUONEB) VIAL INH PRN (21:00)
[2018-04-04 23:46] VITALS: BP 151/76
[2018-04-05 04:04] VITALS: BP 150/74
[2018-04-05] MEDS: PANTOPRAZOLE 40 MG (PROTONIX) TAB PO SCH (06:12)
[2018-04-05] MEDS: NS IV 1000 ML 1,000 ML IV SCH (06:12)
[2018-04-05] MEDS: RT-ALBUTEROL/IPRATROPIUM 3 ML (DUONEB) VIAL INH SCH ×3 (06:55→19:01)
[2018-04-05 07:12] LABS: HEMOGLOBIN 13.1 G/DL (13.3-17.7); MEAN PLATELET VOLUME 10.3 FL (7.4-10.4); RED BLOOD COUNT 3.98 10^6/uL (4.35-5.85); RED CELL DISTRIBUTION WIDTH 13.4 % (10.0-14.5); WHITE BLOOD COUNT 7.1 10^3/uL (4.3-11.0)
[2018-04-05 07:35] LABS: ALANINE AMINOTRANSFERASE 21 U/L (0-55); ALBUMIN 3.5 GM/DL (3.2-4.5); ALKALINE PHOSPHATASE 64 U/L (40-136); BILIRUBIN,TOTAL 1.3 MG/DL (0.1-1.0); BUN/CREATININE RATIO 9; CALCIUM 8.7 MG/DL (8.5-10.1); CARBON DIOXIDE 26 MMOL/L (21-32); CHLORIDE 101 MMOL/L (98-107); CREATININE SERUM 0.76 MG/DL (0.60-1.30); GFR ESTIMATED > 60; GLUCOSE 101 MG/DL (70-105); POTASSIUM 4.1 MMOL/L (3.6-5.0); SODIUM 134 MMOL/L (135-145)
[2018-04-05 08:00] VITALS: BP 142/62
--- NOTE | 2018-04-05 09:32 | Diagnostic Imaging Report ---
EXAM: CHEST PA/LAT (2 VIEW) INDICATION: Cough. Congestion. COMPARISON: Chest radiographs 04/04/2018. FINDINGS: Stable large right pleural effusion. No pneumothorax. Normal heart size and central pulmonary vascularity. No acute osseous findings. IMPRESSION: Stable exam including large right pleural effusion. Dictated by: Dictated on workstation # [id number]
[2018-04-05] MEDS: cefTRIAXone INJECTION 1,000 MG in NS (IVPB) 50 ML IV SCH (09:33)
[2018-04-05] MEDS: MEMANTINE 5 MG (NAMENDA) TABLET PO SCH ×2 (09:34→20:59)
--- NOTE | 2018-04-05 10:03 | Physical Therapy Daily Note ---
PT Daily Note-Current Subjective Pt laying Supine in bed upon arrival. Pt agrees to PT. Pain Location: No Pain Reported Mental Status Patient Orientation: Person, Place, Situation Attachments: Oxygen (3L) Transfers Functional [place] Measure 0=Not Assessed/NA 4=Minimal Assistance 1=Total Assistance 5=Supervision or Setup 2=Maximal Assistance 6=Modified [place] 3=Moderate Assistance 7=Complete IndependenceIRFPAI Quality Coding Scale 6 Independent with activity with or without an assistive device 5 Patient requires set up or clean up by helper. Patient completes activity by themselves 4 Supervision or touching assist (CGA). [place] provide cues , steadying assist 3 The helper provides less than half the effort to complete the activity 2 The helper provides more than half the effort to complete the activity 1 Dependent. The helper does all the effort to complete an activity 7 Patient refused to complete or attempt activity 9 The patient did not perform the activity before the current illness or injury 88 Not attempted due to Medical conditions or safety concerns Scootin Rollin Supine to/from Sit: 5 Sit to/from Stand: 5 Weight Bearing Right Lower Extremity: Right Full Weight Bearing Left Lower Extremity: Left Full Weight Bearing Gait Training Distance (FIM): 3=150 ft Distance: 250' Gait Level of Assist: 5 Gait Persons Needed: 1 Gait Assistive Device: None Pt wobbles a little but able to self correct. Pt is currently not using AD and was not at home previous to hospital visit. Treatments Pt transfers from supine to EOB to Standing at [facility]. Pt uses restroom then rests at EOB before ambulating in hallway. Pt ambulates w/o AD at SBA. Pt returns to room at end of walk due to fatigue. Pt rests in recliner with all needs met, including call light in hand. Assessment Current Status: Good Progress Occasional wobble when ambulating although able to self correct. PT Short Term Goals Short Term Goals Time Frame: Apr 05, 2018 Transfers (B,C,W/C) (FIM): 7 Gait (FIM): 7 Distance (FIM): 3=150 ft Gait Level of Assist: 7 Gait Assistive Device: None PT Plan Problem List Problem List: Activity Tolerance, Safety, Gait Treatment/Plan Treatment Plan: Continue Plan of Care Treatment Plan: Education, Functional Activity Mary, Functional Strength, Gait , Safety, Therapeutic Exercise Treatment Duration: Apr 05, 2018 Frequency: 2 times per week Estimated Hrs Per Day: .25 hour per day Patient and/or Family Agrees t: Yes Safety Risks/Education Patient Education: Gait Training, Transfer Techniques, Correct Positioning, Safety Issues Teaching Recipient: Patient Teaching Methods: Discussion Response to Teaching: Verbalize Understanding Time/GCodes Time In: 837 Time Out: 900 Total Billed Treatment Time: 23 Total Billed Treatment 1, GT (12m) & FA (11m) G Codes Necessary: BRADFORD Alexander COMMERCIAL SUBCONTRACTOR Apr 05, 2018 10:03
[2018-04-05] MEDS: AZITHROMYCIN INJECTION 500 MG in NS (IVPB) 250 ML IV SCH (11:43)
[2018-04-05 12:00] VITALS: BP 131/67
--- NOTE | 2018-04-05 12:11 | Progress Note-Hospitalist ---
Subjective HPI/CC On Admission Date Seen by Provider: Apr 05, 2018 Time Seen by Provider: 10:40 Subjective/Events-last exam Patient doing much better and up in a chair eating lunch is at the bedside Patient has dementia and can't provide a whole lot of details and unsure of the details he provides a reliable No pain is reported Waiting pathology from thoracentesis Review of Systems General: Malaise Pulmonary: Dyspnea Objective Exam Vital Signs Vital Signs Date Time Temp Pulse Resp B/P (MAP) Pulse Ox O2 Delivery O2 Flow Rate FiO2 04/05/18 12:00 97.8 74 18 131/67 (88) 94 Nasal Cannula 2.00 04/04/18 20:32 28 Capillary Refill : Less Than 3 Seconds General Appearance: No Apparent Distress, WD/WN, Chronically ill, Cachetic Respiratory: Lungs Clear (except diminshed RLL), Normal Breath Sounds Cardiovascular: Regular Rate, Rhythm, No Edema Neurologic/Psychiatric: Alert, No Motor/Sensory Deficits, Depressed Affect, Disoriented Results/Procedures Lab Laboratory Tests 04/05/18 06:50 Patient resulted labs reviewed. Assessment/Plan Assessment and Plan Assess & Plan/Chief Complaint Right-sided pleural effusion status post thoracentesis suspicious for cancer Presumed pneumonia right lower lobe placed on antibiotic coverage Plan: Await pathology Continue nebs and oxygen and antibiotics Increase nutrition Overall prognosis guarded Diagnosis/Problems Diagnosis/Problems (1) Weight loss Status: Acute (2) Pleural effusion due to another disorder Status: Acute Assessment & Plan: s/p thoracentesis, pathology pending (3) Hypoxia Status: Acute Assessment & Plan: O2 and Nebs and abx for presumed pneumonia RLL (4) Collapse of right lung Status: Acute (5) Mediastinal lymphadenopathy Status: Acute (6) Hx of non-Hodgkin's lymphoma Status: Acute (7) Dementia Status: Chronic Qualifiers: Dementia type: Alzheimer's disease Alzheimer's disease onset: unspecified onset Dementia behavioral disturbance: without behavioral disturbance Qualified Codes: G30.9 - Alzheimer's disease, unspecified; F02.80 - Dementia in other diseases classified elsewhere without behavioral disturbance Clinical Quality Measures AMI/AHF: ASA po Prior to arrival: No DVT/VTE Risk/Contraindication: Risk Factor Score Per Nursin RFS Level Per Nursing on Admit: 4+=Very High JAKE GOLDSTEIN DO Apr 05, 2018 12:11
[2018-04-05 16:16] VITALS: BP 128/70
[2018-04-05 19:55] VITALS: BP 149/70
[2018-04-05] MEDS: DONEPEZIL 10 MG (ARICEPT) TAB PO SCH (20:59)
[2018-04-05] MEDS: ATORVASTATIN 10 MG (LIPITOR) TABLET PO SCH (20:59)
[2018-04-06] VITALS: BP 169/89
[2018-04-06] MEDS: NS IV 1000 ML 1,000 ML IV SCH ×3 (02:33→21:22)
[2018-04-06 04:10] VITALS: BP 167/92
[2018-04-06] MEDS: PANTOPRAZOLE 40 MG (PROTONIX) TAB PO SCH (06:14)
[2018-04-06] MEDS: RT-ALBUTEROL/IPRATROPIUM 3 ML (DUONEB) VIAL INH SCH ×2 (07:21→14:21)
[2018-04-06 08:00] VITALS: BP 134/72
[2018-04-06] MEDS: cefTRIAXone INJECTION 1,000 MG in NS (IVPB) 50 ML IV SCH (10:31)
[2018-04-06] MEDS: MEMANTINE 5 MG (NAMENDA) TABLET PO SCH ×2 (10:31→21:22)
[2018-04-06] MEDS: AZITHROMYCIN INJECTION 500 MG in NS (IVPB) 250 ML IV SCH (11:37)
[2018-04-06 12:00] VITALS: BP 134/72
--- NOTE | 2018-04-06 12:04 | Progress Note-Hospitalist ---
Subjective HPI/CC On Admission Date Seen by Provider: Apr 06, 2018 Time Seen by Provider: 11:30 Subjective/Events-last exam Patient doing well at bedside No pain is reported Checked meds and labs BM+ but pt did not recall that Breathing well Review of Systems General: Fatigue Pulmonary: Dyspnea Neurological: Confusion Objective Exam Vital Signs Vital Signs Date Time Temp Pulse Resp B/P (MAP) Pulse Ox O2 Delivery O2 Flow Rate FiO2 04/06/18 08:05 Nasal Cannula 2.00 04/06/18 08:00 97.4 76 16 134/72 (92) 93 04/04/18 20:32 28 Capillary Refill : Less Than 3 Seconds General Appearance: No Apparent Distress, WD/WN, Chronically ill, Cachetic Respiratory: Chest Non Tender, No Accessory Muscle Use, No Respiratory Distress , Crackles (LLL), Decreased Breath Sounds (RLL) Cardiovascular: Regular Rate, Rhythm, No Edema, No Gallop, No JVD, No Murmur, Normal Peripheral Pulses Neurologic/Psychiatric: Alert, Oriented x3, No Motor/Sensory Deficits, Normal Mood/Affect Skin: Normal Color, Warm/Dry Results/Procedures Lab Patient resulted labs reviewed. Assessment/Plan Assessment and Plan Assess & Plan/Chief Complaint Right-sided pleural effusion status post thoracentesis suspicious for cancer Presumed pneumonia right lower lobe placed on antibiotic coverage Plan: Await pathology Continue nebs and oxygen and antibiotics Increase nutrition Overall prognosis guarded Check labs and CXR in am Diagnosis/Problems Diagnosis/Problems (1) Pleural effusion due to another disorder Status: Acute Assessment & Plan: s/p thoracentesis, pathology pending Check labs and CXR in morning (2) Weight loss Status: Acute (3) Hypoxia Status: Acute Assessment & Plan: O2 and Nebs and abx for presumed pneumonia RLL (4) Collapse of right lung Status: Acute (5) Mediastinal lymphadenopathy Status: Acute (6) Hx of non-Hodgkin's lymphoma Status: Acute (7) Dementia Status: Chronic Qualifiers: Dementia type: Alzheimer's disease Alzheimer's disease onset: unspecified onset Dementia behavioral disturbance: without behavioral disturbance Qualified Codes: G30.9 - Alzheimer's disease, unspecified; F02.80 - Dementia in other diseases classified elsewhere without behavioral disturbance Clinical Quality Measures AMI/AHF: ASA po Prior to arrival: No DVT/VTE Risk/Contraindication: Risk Factor Score Per Nursin RFS Level Per Nursing on Admit: 4+=Very High JAKE GOLDSTEIN DO Apr 06, 2018 12:04
[2018-04-06 15:58] VITALS: BP 131/78
[2018-04-06 20:46] VITALS: BP 176/89
[2018-04-06] MEDS: ATORVASTATIN 10 MG (LIPITOR) TABLET PO SCH (21:22)
[2018-04-06] MEDS: DONEPEZIL 10 MG (ARICEPT) TAB PO SCH (21:22)
[2018-04-07] VITALS (7 sets, daily range): BP systolic 143–171; BP diastolic 72–96
[2018-04-07 06:07] LABS: BASOPHILS % (AUTO) 0 % (0-10); EOSINOPHILS # (AUTO) 0.2 10^3/uL (0.0-0.3); EOSINOPHILS % (AUTO) 2 % (0-10); HEMATOCRIT 40 % (40-54); LYMPHOCYTES # (AUTO) 0.6 X 10^3 (1.0-4.0); LYMPHOCYTES % (AUTO) 8 % (12-44); MEAN CORPUSCULAR HEMOGLOBIN 33 PG (25-34); MEAN CORPUSCULAR HGB CONC 35 G/DL (32-36); MEAN CORPUSCULAR VOLUME 93 FL (80-99); MEAN PLATELET VOLUME 10.5 FL (7.4-10.4); MONOCYTES # (AUTO) 0.7 X 10^3 (0.0-1.0); MONOCYTES % (AUTO) 10 % (0-12); NEUTROPHILS # (AUTO) 5.9 X 10^3 (1.8-7.8); NEUTROPHILS % (AUTO) 80 % (42-75); PLATELET COUNT 204 10^3/uL (130-400); RED BLOOD COUNT 4.26 10^6/uL (4.35-5.85); RED CELL DISTRIBUTION WIDTH 13.3 % (10.0-14.5); WHITE BLOOD COUNT 7.4 10^3/uL (4.3-11.0)
[2018-04-07 06:22] LABS: ALANINE AMINOTRANSFERASE 37 U/L (0-55); ALBUMIN 3.5 GM/DL (3.2-4.5); ALKALINE PHOSPHATASE 72 U/L (40-136); BILIRUBIN,TOTAL 0.9 MG/DL (0.1-1.0); BUN/CREATININE RATIO 7; CARBON DIOXIDE 22 MMOL/L (21-32); CHLORIDE 102 MMOL/L (98-107); CREATININE SERUM 0.69 MG/DL (0.60-1.30); GFR ESTIMATED > 60; GLUCOSE 101 MG/DL (70-105); POTASSIUM 3.5 MMOL/L (3.6-5.0); SODIUM 135 MMOL/L (135-145); TOTAL PROTEIN 5.7 GM/DL (6.4-8.2)
[2018-04-07] MEDS: PANTOPRAZOLE 40 MG (PROTONIX) TAB PO SCH (06:35)
--- NOTE | 2018-04-07 07:42 | Progress Note (SOAP) ---
Subjective Time Seen by Provider: 07:40 Subjective/Events-last exam patient comfortable on oxygen. Has pleural effusion. To have chest x-ray done today. First part of cytology negative for non-Hodgkin's lymphoma Objective Exam Vital Signs Date Time Temp Pulse Resp B/P (MAP) Pulse Ox O2 Delivery O2 Flow Rate FiO2 04/07/18 04:00 97.3 66 16 170/94 (119) 91 Nasal Cannula 2.00 04/07/18 00:48 76 04/07/18 00:35 97.6 72 20 171/96 (121) 94 Room Air 04/06/18 20:46 96.4 62 20 176/89 (118) 93 Nasal Cannula 3.00 04/06/18 20:05 93 Nasal Cannula 3.00 04/06/18 19:00 62 04/06/18 15:58 96.5 61 20 131/78 (95) 95 Nasal Cannula 3.00 04/06/18 14:22 94 Nasal Cannula 2.00 04/06/18 13:00 55 04/06/18 12:00 98.1 68 16 134/72 (92) 93 Nasal Cannula 2.00 04/06/18 08:05 Nasal Cannula 2.00 04/06/18 08:00 97.4 76 16 134/72 (92) 93 Nasal Cannula 2.00 I & O 04/07/18 07:00 Intake Total 2890 ml Output Total 1250 ml Balance 1640 ml Capillary Refill : Less Than 3 Seconds General Appearance: No Apparent Distress, WD/WN HEENT: Normal ENT Inspection Neck: Full Range of Motion, Normal Inspection Respiratory: No Accessory Muscle Use, No Respiratory Distress, Decreased Breath Sounds Cardiovascular: Regular Rate, Rhythm, No Murmur Gastrointestinal: non tender, soft Results Lab Laboratory Tests 04/07/18 05:17 Laboratory Tests 04/07/18 05:17: White Blood Count 7.4, Red Blood Count 4.26L, Hemoglobin 14.0, Hematocrit 40, Mean Corpuscular Volume 93, Mean Corpuscular Hemoglobin 33, Mean Corpuscular Hemoglobin Concent 35, Red Cell Distribution Width 13.3, Platelet Count 204, Mean Platelet Volume 10.5H, Neutrophils (%) (Auto) 80H, Lymphocytes (%) (Auto) 8L, Monocytes (%) (Auto) 10, Eosinophils (%) (Auto) 2, Basophils (%) (Auto) 0, Neutrophils # (Auto) 5.9, Lymphocytes # (Auto) 0.6L, Monocytes # (Auto) 0.7, Eosinophils # (Auto) 0.2, Basophils # (Auto) 0.0, Sodium Level 135, Potassium Level 3.5L, Chloride Level 102, Carbon Dioxide Level 22, Anion Gap 11, Blood Urea Nitrogen 5L, Creatinine 0.69, Estimat Glomerular Filtration Rate > 60, BUN/ Creatinine Ratio 7, Glucose Level 101, Calcium Level 9.0, Total Bilirubin 0.9, Aspartate Amino Transf (AST/SGOT) 39H, Alanine Aminotransferase (ALT/SGPT) 37, Alkaline Phosphatase 72, Total Protein 5.7L, Albumin 3.5 Microbiology 04/03/18 Gram Stain - Final, Resulted 04/03/18 Body Fluid Culture - Preliminary, Resulted No growth 04/03/18 Anaerobic Culture - Preliminary, Resulted No growth Assessment/Plan Assessment/Plan Assess & Plan/Chief Complaint Large pleural effusion with collapse of lung. Alzheimer's. Patient doesn't know what he eats for breakfast History of non-Hodgkin's lymphoma 30 years ago.. . 04/07/18. Pleural effusion Hypoxia. Collapse of the right lung. History of non-Hodgkin's lymphoma. dementia Clinical Quality Measures Admission Status Admission Dx Large pleural effusion with opacification of right lung. Collapse of right lung. Mediastinal lymphadenopathy. History of non-Hodgkin's lymphoma. Previous CVA. Patient needs thoracentesis and short of breath. Patient to get it today AMI/AHF: ASA po Prior to arrival: No DVT/VTE Risk/Contraindication: Risk Factor Score Per Nursin RFS Level Per Nursing on Admit: 4+=Very High EDSON STRONG DO Apr 07, 2018 07:42
--- NOTE | 2018-04-07 08:37 | Diagnostic Imaging Report ---
INDICATION: Pleural effusion. Dyspnea. COMPARISON: 04/05/2018. FINDINGS: Stable size and appearance of large right pleural effusion. Right basilar confluent airspace consolidations are stable. Left lung remains well aerated. No left-sided pleural effusion. No pneumothorax. Grossly stable cardiomediastinal silhouette. IMPRESSION: Unchanged large right pleural effusion and associated right basilar pulmonary opacities. Dictated by: Dictated on workstation # [id number]
[2018-04-07] MEDS: MEMANTINE 5 MG (NAMENDA) TABLET PO SCH ×2 (08:42→20:30)
[2018-04-07] MEDS: AZITHROMYCIN INJECTION 500 MG in NS (IVPB) 250 ML IV SCH (08:43)
[2018-04-07] MEDS: cefTRIAXone INJECTION 1,000 MG in NS (IVPB) 50 ML IV SCH (08:43)
--- NOTE | 2018-04-07 09:50 | Physical Therapy Daily Note ---
PT Daily Note-Current Subjective Patient agrees to PT. No c/o. PT removed O2 5 min before treatment with patient displaying 95% SAO2. Pain Numeric Pain Scale: 0-No Pain Location: No Pain Reported Mental Status Patient Orientation: Confused Transfers Functional [employer] Measure 0=Not Assessed/NA 4=Minimal Assistance 1=Total Assistance 5=Supervision or Setup 2=Maximal Assistance 6=Modified [employer] 3=Moderate Assistance 7=Complete IndependenceIRFPAI Quality Coding Scale 6 Independent with activity with or without an assistive device 5 Patient requires set up or clean up by helper. Patient completes activity by themselves 4 Supervision or touching assist (CGA). [place] provide cues , steadying assist 3 The helper provides less than half the effort to complete the activity 2 The helper provides more than half the effort to complete the activity 1 Dependent. The helper does all the effort to complete an activity 7 Patient refused to complete or attempt activity 9 The patient did not perform the activity before the current illness or injury 88 Not attempted due to Medical conditions or safety concerns Transfers (B, C, W/C) (FIM): 7 Scootin Rollin Supine to/from Sit: 7 Sit to/from Stand: 7 Weight Bearing Right Lower Extremity: Right Full Weight Bearing Left Lower Extremity: Left Full Weight Bearing Gait Training Gait (FIM): 7 Distance (FIM): 3=150 ft Distance: >1000' Gait Level of Assist: 7 Gait Assistive Device: None safe and functional Assessment SAO2 monitored during treatment of 10 minute ambulation on RA. Patient maintained 93% on RA with all activity. RT and RN notified of results. PT Short Term Goals Short Term Goals Time Frame: Apr 05, 2018 Transfers (B,C,W/C) (FIM): 7 Gait (FIM): 7 Distance (FIM): 3=150 ft Gait Level of Assist: 7 Gait Assistive Device: None PT Plan Treatment/Plan Treatment Plan: Discontinue PT, goals met Treatment Plan: Education, Functional Activity Mary, Functional Strength, Gait , Safety, Therapeutic Exercise Treatment Duration: Apr 05, 2018 Frequency: 2 times per week Estimated Hrs Per Day: .25 hour per day Patient and/or Family Agrees t: Yes Time/GCodes Time In: 835 Time Out: 900 Total Billed Treatment Time: 25 Total Billed Treatment 1 visit FA x 2 25 min GILSON LYON PT Apr 07, 2018 09:50
--- NOTE | 2018-04-07 11:16 | Occupational Ther Daily Note ---
OT Current Status-Daily Note Subjective Pt alert, lying in bed. Nrsg wanted to make sure that pt's bed/chair alarm was on after pt is finished with OT. Pt agrees to therapy. No c/o pain at this time. Mental Status/Objective Patient Orientation: Person, Confused Functional [place] Measure 0=Not Assessed/NA 4=Minimal Assistance 1=Total Assistance 5=Supervision or Setup 2=Maximal Assistance 6=Modified [place] 3=Moderate Assistance 7=Complete [place] Attachments: IV ADL-Treatment Bathing (FIM): 5 (Pt required assist turning on/off water, directions with getting soap out of container and to use washclothes. Pt able to complete bathing and drying self. Supervision for safety using grabbars, hand held shower and shower bench.) Bathing Location: L Arm, R Arm, L Upper Leg, R Upper Leg, L Lower Leg ( including foot), R Lower Leg (including foot), Chest, Abdomen, Buttocks, Perineal Area Upper Body (FIM): 5 (Set up with hospital gown, tied so pt would be able to lift over head to don.) Lower Body Dressing (FIM): 5 (Set up. Supervision when standing to hike pants over hips. Pt able to don/doff clothing over feet by self.) Shower Transfer(FIM): 5 (Supervision due to IV. Using grabbars and shower bench. Pt does not use FWW.) OT Short Term Goals Short Term Goals Transfers (B,C,W/C) (FIM): 7 1=Demonstrate adherence to instructed precautions during ADL tasks. 2=Patient will verbalize/demonstrate understanding of assistive devices/ modifications for ADL. 3=Patient will improve strength/tolerance for activity to enable patient to perform ADL's. OT Penitentiary Goals Penitentiary Goals Time Frame: Apr 11, 2018 Eating (FIM): 6 Grooming(FIM): 6 Bathing(FIM): 5 Upper Body Dressing(FIM): 6 Lower Body Dressing(FIM): 6 Toileting(FIM): 6 Toilet/Commode Transfer(FIM): 6 Shower Transfer(FIM): 5 Additional Goals: 1-Demonstrate ADL Tasks, 2-Verbalize Understanding, 3- ImproveStrength/Mary 1=Demonstrate adherence to instructed precautions during ADL tasks. 2=Patient will verbalize/demonstrate understanding of assistive devices/ modifications for ADL. 3=Patient will improve strength/tolerance for activity to enable patient to perform ADL's. OT Education/Plan Problem List/Assessment Pt woould benefit from skilled OT to increase his independence in basic self care and to increase his activity tolerance to allow him to safely return home. Discharge Recommendations Plan/Recommendations: Continue POC Treatment Plan/Plan of Care Patient would benefit from OT for education, treatment and training to promote independence in ADL's, mobility, safety and/or upper extremity function for ADL' s. Treatment Duration: Apr 11, 2018 Frequency: 5 times per week Estimated Hrs Per Day: .5 hour per day Agreement: Yes Rehab Potential: Fair Time/GCodes Start Time: 10:30 Stop Time: 11:08 Total Time Billed (hr/min): 38 Billed Treatment Time 1 visit-ADL 3 (38 min) NAV TOLLIVER Apr 07, 2018 11:16
[2018-04-07] MEDS: NS IV 1000 ML 1,000 ML IV SCH ×2 (11:53→16:29)
[2018-04-07] MEDS: DONEPEZIL 10 MG (ARICEPT) TAB PO SCH (20:30)
[2018-04-07] MEDS: ATORVASTATIN 10 MG (LIPITOR) TABLET PO SCH (20:30)
[2018-04-08] VITALS (7 sets, daily range): BP systolic 141–167; BP diastolic 74–83
[2018-04-08 05:55] LABS: BASOPHILS % (AUTO) 0 % (0-10); EOSINOPHILS # (AUTO) 0.2 10^3/uL (0.0-0.3); EOSINOPHILS % (AUTO) 3 % (0-10); HEMATOCRIT 39 % (40-54); HEMOGLOBIN 13.2 G/DL (13.3-17.7); LYMPHOCYTES # (AUTO) 0.8 X 10^3 (1.0-4.0); LYMPHOCYTES % (AUTO) 12 % (12-44); MEAN CORPUSCULAR HEMOGLOBIN 32 PG (25-34); MEAN CORPUSCULAR HGB CONC 34 G/DL (32-36); MEAN CORPUSCULAR VOLUME 93 FL (80-99); MEAN PLATELET VOLUME 10.1 FL (7.4-10.4); MONOCYTES # (AUTO) 0.7 X 10^3 (0.0-1.0); MONOCYTES % (AUTO) 11 % (0-12); NEUTROPHILS # (AUTO) 4.9 X 10^3 (1.8-7.8); NEUTROPHILS % (AUTO) 73 % (42-75); PLATELET COUNT 220 10^3/uL (130-400); RED BLOOD COUNT 4.15 10^6/uL (4.35-5.85); RED CELL DISTRIBUTION WIDTH 13.5 % (10.0-14.5); WHITE BLOOD COUNT 6.7 10^3/uL (4.3-11.0)
[2018-04-08 06:15] LABS: ALANINE AMINOTRANSFERASE 30 U/L (0-55); ALBUMIN 3.4 GM/DL (3.2-4.5); ALKALINE PHOSPHATASE 72 U/L (40-136); BILIRUBIN,TOTAL 1.1 MG/DL (0.1-1.0); BUN/CREATININE RATIO 10; CARBON DIOXIDE 23 MMOL/L (21-32); CHLORIDE 104 MMOL/L (98-107); CREATININE SERUM 0.69 MG/DL (0.60-1.30); GFR ESTIMATED > 60; GLUCOSE 91 MG/DL (70-105); POTASSIUM 3.7 MMOL/L (3.6-5.0); SODIUM 135 MMOL/L (135-145); TOTAL PROTEIN 5.6 GM/DL (6.4-8.2)
[2018-04-08] MEDS: PANTOPRAZOLE 40 MG (PROTONIX) TAB PO SCH (06:15)
--- NOTE | 2018-04-08 07:32 | Progress Note (SOAP) ---
Subjective Time Seen by Provider: 07:25 Subjective/Events-last exam Patient stable. Patient is stable large right pleural effusion and right basilar pulmonary infiltrate. Patient to be discharged today. Patient to see pulmonology Dr. Esquivel next week and myself next Saturday. Patient has any problems to get in touch with me . Waiting for flow cytometry report. Objective Exam Vital Signs Date Time Temp Pulse Resp B/P (MAP) Pulse Ox O2 Delivery O2 Flow Rate FiO2 04/08/18 03:57 97.3 69 16 164/78 (106) 93 Room Air 04/08/18 00:19 97.7 70 18 146/74 (98) 95 Room Air 04/07/18 20:05 Room Air 04/07/18 19:02 97.9 62 18 148/72 (97) 96 Room Air 04/07/18 15:55 98.5 57 20 143/79 (100) 93 Nasal Cannula 2.00 04/07/18 12:00 97.6 57 20 153/75 (101) 96 Nasal Cannula 2.00 04/07/18 08:00 3 Nasal Cannula 04/07/18 08:00 97.9 61 20 161/85 (110) 96 Nasal Cannula 2.00 I & O 04/08/18 07:00 Intake Total 2680 ml Output Total 1300 ml Balance 1380 ml Capillary Refill : Less Than 3 SecondsLess Than 3 Seconds General Appearance: No Apparent Distress, WD/WN HEENT: Normal ENT Inspection Neck: Normal Inspection, Non Tender Respiratory: Chest Non Tender, No Accessory Muscle Use, No Respiratory Distress , Other (No breath sounds on right) Cardiovascular: Regular Rate, Rhythm, No Murmur Gastrointestinal: non tender, soft Results Lab Laboratory Tests 04/08/18 05:24 Laboratory Tests 04/08/18 05:24: White Blood Count 6.7, Red Blood Count 4.15L, Hemoglobin 13.2L, Hematocrit 39L, Mean Corpuscular Volume 93, Mean Corpuscular Hemoglobin 32, Mean Corpuscular Hemoglobin Concent 34, Red Cell Distribution Width 13.5, Platelet Count 220, Mean Platelet Volume 10.1, Neutrophils (%) (Auto) 73, Lymphocytes (%) (Auto) 12 , Monocytes (%) (Auto) 11, Eosinophils (%) (Auto) 3, Basophils (%) (Auto) 0, Neutrophils # (Auto) 4.9, Lymphocytes # (Auto) 0.8L, Monocytes # (Auto) 0.7, Eosinophils # (Auto) 0.2, Basophils # (Auto) 0.0, Sodium Level 135, Potassium Level 3.7, Chloride Level 104, Carbon Dioxide Level 23, Anion Gap 8, Blood Urea Nitrogen 7, Creatinine 0.69, Estimat Glomerular Filtration Rate > 60, BUN/ Creatinine Ratio 10, Glucose Level 91, Calcium Level 9.0, Total Bilirubin 1.1H, Aspartate Amino Transf (AST/SGOT) 29, Alanine Aminotransferase (ALT/SGPT) 30, Alkaline Phosphatase 72, Total Protein 5.6L, Albumin 3.4 Microbiology 04/03/18 Gram Stain - Final, Complete 04/03/18 Body Fluid Culture - Final, Complete No growth 04/03/18 Anaerobic Culture - Final, Complete No growth Assessment/Plan Assessment/Plan Assess & Plan/Chief Complaint Large pleural effusion with collapse of lung. Alzheimer's. Patient doesn't know what he eats for breakfast History of non-Hodgkin's lymphoma 30 years ago.. . 04/07/18. Pleural effusion Hypoxia. Collapse of the right lung. History of non-Hodgkin's lymphoma. dementia. . . Large right pleural effusion. Right basilar pulmonary infiltrates. Hypoxia. History of non-Hodgkin's lymphoma. Dementia. Plan to discharge patient today and see this Saturday in the office. Flow cytometry is pending Clinical Quality Measures Admission Status Admission Dx Large pleural effusion with opacification of right lung. Collapse of right lung. Mediastinal lymphadenopathy. History of non-Hodgkin's lymphoma. Previous CVA. Patient needs thoracentesis and short of breath. Patient to get it today AMI/AHF: ASA po Prior to arrival: No DVT/VTE Risk/Contraindication: Risk Factor Score Per Nursin RFS Level Per Nursing on Admit: 4+=Very High EDSON STRONG DO Apr 08, 2018 07:32
[2018-04-08] MEDS ORDERED: CEFD300C3 PO (07:35)
--- NOTE | 2018-04-08 07:37 | Discharge Inst-Simple/Standard ---
Discharge Inst-Standard Discharge Medications New, Converted or Re-Newed RX: Call to Patients Pharmacy Patient Instructions/Follow Up Plan of Care/Instructions/FU: 2 office next Saturday. Appointment with Dr. Esquivel steamship agent. Activity as Tolerated: Yes Discharge Diet: No Restrictions EDSON STRONG DO Apr 08, 2018 07:37
[2018-04-08] MEDS: RT-ALBUTEROL/IPRATROPIUM 3 ML (DUONEB) VIAL INH SCH ×3 (07:53→19:13)
[2018-04-08] MEDS: cefTRIAXone INJECTION 1,000 MG in NS (IVPB) 50 ML IV SCH (08:26)
[2018-04-08] MEDS: AZITHROMYCIN INJECTION 500 MG in NS (IVPB) 250 ML IV SCH (08:27)
[2018-04-08] MEDS: MEMANTINE 5 MG (NAMENDA) TABLET PO SCH ×2 (08:27→20:22)
--- NOTE | 2018-04-08 15:27 | Occupational Ther Daily Note ---
OT Current Status-Daily Note Subjective Pt alert, sitting in recliner. Pt agrees to therapy. No c/o pain. Mental Status/Objective Functional [place] Measure 0=Not Assessed/NA 4=Minimal Assistance 1=Total Assistance 5=Supervision or Setup 2=Maximal Assistance 6=Modified [place] 3=Moderate Assistance 7=Complete [place] ADL-Treatment Grooming (FIM): 5 (Supervision due to slight LOB during standing at sink. Pt able to complete by self. Did ask where to put supplies.) Toileting (FIM): 5 (Supervision to manipulate clothing. Pt able to complete own toileting.) Toilet/Commode Transfer (FIM): 5 (Supervision due to slight LOB. No FWW.) OT Short Term Goals Short Term Goals Transfers (B,C,W/C) (FIM): 7 1=Demonstrate adherence to instructed precautions during ADL tasks. 2=Patient will verbalize/demonstrate understanding of assistive devices/ modifications for ADL. 3=Patient will improve strength/tolerance for activity to enable patient to perform ADL's. OT Nursing Home Goals Nursing Home Goals Time Frame: Apr 11, 2018 Eating (FIM): 6 Grooming(FIM): 6 Bathing(FIM): 5 Upper Body Dressing(FIM): 6 Lower Body Dressing(FIM): 6 Toileting(FIM): 6 Toilet/Commode Transfer(FIM): 6 Shower Transfer(FIM): 5 Additional Goals: 1-Demonstrate ADL Tasks, 2-Verbalize Understanding, 3- ImproveStrength/Mary 1=Demonstrate adherence to instructed precautions during ADL tasks. 2=Patient will verbalize/demonstrate understanding of assistive devices/ modifications for ADL. 3=Patient will improve strength/tolerance for activity to enable patient to perform ADL's. OT Education/Plan Problem List/Assessment Pt woould benefit from skilled OT to increase his independence in basic self care and to increase his activity tolerance to allow him to safely return home. Discharge Recommendations Plan/Recommendations: Continue POC Treatment Plan/Plan of Care Patient would benefit from OT for education, treatment and training to promote independence in ADL's, mobility, safety and/or upper extremity function for ADL' s. Treatment Duration: Apr 11, 2018 Frequency: 5 times per week Estimated Hrs Per Day: .5 hour per day Agreement: Yes Rehab Potential: Fair Time/GCodes Start Time: 15:00 Stop Time: 15:15 Total Time Billed (hr/min): 15 Billed Treatment Time 1 visit-ADL 1 (15 min) NAV TOLLIVER Apr 08, 2018 15:27
[2018-04-08] MEDS: DONEPEZIL 10 MG (ARICEPT) TAB PO SCH (20:22)
[2018-04-08] MEDS: ATORVASTATIN 10 MG (LIPITOR) TABLET PO SCH (20:22)
[2018-04-09 00:15] VITALS: BP 156/75
[2018-04-09] MEDS: NS IV 1000 ML 1,000 ML IV SCH ×2 (03:09→09:40)
[2018-04-09 04:04] VITALS: BP 176/86
[2018-04-09] MEDS: PANTOPRAZOLE 40 MG (PROTONIX) TAB PO SCH (06:07)
--- NOTE | 2018-04-09 07:36 | Progress Note (SOAP) ---
Subjective Time Seen by Provider: 07:30 Subjective/Events-last exam Patient stable. Pulse ox 87 during the night. Ration to be sent home with oxygen. Hypertension. Patient put on lisinopril Objective Exam Vital Signs Date Time Temp Pulse Resp B/P (MAP) Pulse Ox O2 Delivery O2 Flow Rate FiO2 04/09/18 04:04 98.1 64 15 176/86 (116) 91 Nasal Cannula 2.00 04/09/18 00:15 98.5 66 16 156/75 (102) 91 Nasal Cannula 2.00 04/08/18 20:05 Room Air 04/08/18 19:30 97.4 66 20 164/79 (107) 92 Nasal Cannula 2.00 04/08/18 19:13 88 Nasal Cannula 2.00 04/08/18 15:35 97.7 59 18 141/74 (96) 94 Nasal Cannula 2.00 04/08/18 14:54 95 Nasal Cannula 2.00 04/08/18 11:43 97.0 56 16 148/75 (99) 95 Nasal Cannula 2.00 04/08/18 08:00 Room Air 04/08/18 07:53 90 Nasal Cannula 2.00 04/08/18 07:53 60 90 04/08/18 07:35 97.3 60 16 167/83 (111) 94 Nasal Cannula 2.00 I & O 04/09/18 07:00 Intake Total 1855 ml Output Total 2050 ml Balance -195 ml Capillary Refill : Less Than 3 SecondsLess Than 3 Seconds General Appearance: No Apparent Distress, WD/WN HEENT: Normal ENT Inspection Neck: Full Range of Motion, Normal Inspection Respiratory: No Accessory Muscle Use, No Respiratory Distress, Other (No breath sounds in right lung) Cardiovascular: Regular Rate, Rhythm, No Murmur Gastrointestinal: non tender, soft Results Lab Microbiology 04/03/18 Gram Stain - Final, Complete 04/03/18 Body Fluid Culture - Final, Complete No growth 04/03/18 Anaerobic Culture - Final, Complete No growth Assessment/Plan Assessment/Plan Assess & Plan/Chief Complaint Large pleural effusion with collapse of lung. Alzheimer's. Patient doesn't know what he eats for breakfast History of non-Hodgkin's lymphoma 30 years ago.. . 04/07/18. Pleural effusion Hypoxia. Collapse of the right lung. History of non-Hodgkin's lymphoma. dementia. . . Large right pleural effusion. Right basilar pulmonary infiltrates. Hypoxia. History of non-Hodgkin's lymphoma. Dementia. Plan to discharge patient today and see this Saturday in the office. Flow cytometry is pending. . 04/09/18. Large right pleural effusion. Right basilar pulmonary infiltrates. Hypoxia. Dementia. Patient to go home on oxygen at night Clinical Quality Measures Admission Status Admission Dx Large pleural effusion with opacification of right lung. Collapse of right lung. Mediastinal lymphadenopathy. History of non-Hodgkin's lymphoma. Previous CVA. Patient needs thoracentesis and short of breath. Patient to get it today AMI/AHF: ASA po Prior to arrival: No DVT/VTE Risk/Contraindication: Risk Factor Score Per Nursin RFS Level Per Nursing on Admit: 4+=Very High EDSON STRONG DO Apr 09, 2018 07:36
--- NOTE | 2018-04-09 07:58 | Diagnostic Imaging Report ---
INDICATION: Pleural effusion PA and lateral views of the chest are obtained with comparison made to study of 04/07/2018. Large amount of right pleural fluid is again demonstrated. Pulmonary vascularity is at the upper limits of normal. There is no evidence of pneumothorax. There is mild blunting of the left costophrenic sulcus. IMPRESSION: Findings are compatible with large right pleural effusion with subjacent atelectasis. There may be small amount of left pleural fluid and basilar atelectasis as well. Dictated by: Dictated on workstation # [id number]
[2018-04-09 08:00] VITALS: BP 161/81
[2018-04-09] MEDS: MEMANTINE 5 MG (NAMENDA) TABLET PO SCH (08:33)
[2018-04-09] MEDS: cefTRIAXone INJECTION 1,000 MG in NS (IVPB) 50 ML IV SCH (08:34)
[2018-04-09] MEDS ORDERED: AZITHROMYCIN 250 MG TAB (ZITHROMAX) PO SCH (09:00)
[2018-04-09] MEDS ORDERED: lisINopril 10 MG (PRINIVIL) TABLET PO SCH (09:00)
[2018-04-09] MEDS ORDERED: LISI10TA2 PO (09:44)
[2018-04-09 10:19] LABS: BILIRUBIN,URINE NEGATIVE (NEGATIVE); CLARITY,URINE CLEAR; COLOR,URINE YELLOW; GLUCOSE, URINE (UA) NEGATIVE (NEGATIVE); KETONES,URINE NEGATIVE (NEGATIVE); LEUKOCYTE ESTERASE ,URINE NEGATIVE (NEGATIVE); NITRITE,URINE NEGATIVE (NEGATIVE); PH,URINE 6.5 (5-9); PROTEIN,URINE NEGATIVE (NEGATIVE); UROBILINOGEN,URINE NORMAL (NORMAL)
[2018-04-09 10:25] LABS: BACTERIA,URINE NEGATIVE /HPF
--- NOTE | 2018-04-11 07:19 | Discharge Summary ---
Diagnosis/Chief Complaint Date of Admission Apr 02, 2018 at 22:45 Date of Discharge Apr 09, 2018 at 11:15 Discharge Date: Apr 09, 2018 Discharge Time: 07:17 Discharge Diagnosis Very large right pleural effusion. Short of breath. Hypoxia. Chest discomfort. Alzheimer's disease. History of previous non-Hodgkin's lymphoma area Previous CVA. Hypertension. Dementia. Pneumonia Reason Hospital Visit Patient has Alzheimer's and unable to give good history. Patient showed up at emergency room with DPOA. Patient complained of shortness of breath and chest pain. Patient has history of non-Hodgkin's lymphoma approximately 25 years ago. Patient does not know the year. 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 Patient is pleasant. Patient has a history of previous CVA on Plavix and aspirin for that Discharge Summary Procedures Thoracentesis Consultations Pulmonology, oncology Discharge Physical Examination Allergies: Coded Allergies: No Known Drug Allergies (Unverified , 10/23/11) Vitals & I&Os Vital Signs Date Time Temp Pulse Resp B/P (MAP) Pulse Ox O2 Delivery O2 Flow Rate FiO2 04/09/18 11:15 04/09/18 08:35 Room Air 04/09/18 08:00 97.2 60 20 92 Hospital Course Labs (last 24 hrs) Laboratory Tests 04/02/18 21:00: White Blood Count 6.8, Red Blood Count 4.37, Hemoglobin 14.0, Hematocrit 41, Mean Corpuscular Volume 94, Mean Corpuscular Hemoglobin 32, Mean Corpuscular Hemoglobin Concent 34, Red Cell Distribution Width 14.0, Platelet Count 230, Mean Platelet Volume 10.0, Neutrophils (%) (Auto) 74, Lymphocytes (%) (Auto) 12 , Monocytes (%) (Auto) 11, Eosinophils (%) (Auto) 2, Basophils (%) (Auto) 0, Neutrophils # (Auto) 5.1, Lymphocytes # (Auto) 0.8L, Monocytes # (Auto) 0.8, Eosinophils # (Auto) 0.1, Basophils # (Auto) 0.0, Prothrombin Time 14.0, INR Comment 1.1, Activated Partial Thromboplast Time 32, Sodium Level 138, Potassium Level 3.6, Chloride Level 104, Carbon Dioxide Level 26, Anion Gap 8, Blood Urea Nitrogen 14, Creatinine 0.86, Estimat Glomerular Filtration Rate > 60 , BUN/Creatinine Ratio 16, Glucose Level 129H, Calcium Level 9.3, Magnesium Level 2.5H, Total Bilirubin 1.2H, Aspartate Amino Transf (AST/SGOT) 32, Alanine Aminotransferase (ALT/SGPT) 34, Alkaline Phosphatase 79, Total Creatine Kinase 85, Creatine Kinase MB 2.2, Myoglobin 66.4, Troponin I < 0.30, B-Type Natriuretic Peptide 48.8, Total Protein 6.8, Albumin 4.2, Amylase Level 65, Lipase 15 04/03/18 05:27: White Blood Count 9.1, Red Blood Count 4.09L, Hemoglobin 13.4, Hematocrit 39L, Mean Corpuscular Volume 95, Mean Corpuscular Hemoglobin 33, Mean Corpuscular Hemoglobin Concent 35, Red Cell Distribution Width 13.6, Platelet Count 193, Mean Platelet Volume 10.6H, Neutrophils (%) (Auto) 85H, Lymphocytes (%) (Auto) 6L, Monocytes (%) (Auto) 9, Eosinophils (%) (Auto) 0, Basophils (%) (Auto) 0, Neutrophils # (Auto) 7.7, Lymphocytes # (Auto) 0.6L, Monocytes # (Auto) 0.8, Eosinophils # (Auto) 0.0, Basophils # (Auto) 0.0, Sodium Level 137, Potassium Level 4.0, Chloride Level 103, Carbon Dioxide Level 25, Anion Gap 9, Blood Urea Nitrogen 13, Creatinine 0.81, Estimat Glomerular Filtration Rate > 60, BUN/ Creatinine Ratio 16, Glucose Level 111H, Calcium Level 8.9, Total Bilirubin 0.9 , Aspartate Amino Transf (AST/SGOT) 31, Alanine Aminotransferase (ALT/SGPT) 36, Alkaline Phosphatase 77, Total Protein 6.1L, Albumin 3.8, Lactate Dehydrogenase 169, Triglycerides Level 102, Cholesterol Level 119, LDL Cholesterol Direct 71, VLDL Cholesterol 20, HDL Cholesterol 30L 04/03/18 10:20: Body Fluid Source PLEURAL, Body Fluid Color YELLOW, Body Fluid Appearance CLEAR , Body Fluid pH 7.7, Body Fluid WBC 32, Body Fluid RBC 10, Body Fluid Polynuclear WBCs 8, Body Fluid Mononuclear WBCs 4, Body Fluid Lymphocytes 72, Body Fluid Other Cells 16, Body Fluid Glucose 55, Body Fluid Total Protein 4.3, Body Fluid Lactate Dehydrogenase 142, Body Fluid Triglycerides 43 04/03/18 16:25: Hemoglobin 13.6, Hematocrit 39L 04/04/18 05:58: White Blood Count 7.5, Red Blood Count 4.01L, Hemoglobin 12.7L, Hematocrit 38L, Mean Corpuscular Volume 95, Mean Corpuscular Hemoglobin 32, Mean Corpuscular Hemoglobin Concent 34, Red Cell Distribution Width 13.7, Platelet Count 198, Mean Platelet Volume 10.3, Sodium Level 136, Potassium Level 4.0, Chloride Level 103, Carbon Dioxide Level 26, Anion Gap 7, Blood Urea Nitrogen 11, Creatinine 0.77, Estimat Glomerular Filtration Rate > 60, BUN/Creatinine Ratio 14, Glucose Level 104, Calcium Level 8.6, Total Bilirubin 1.1H, Aspartate Amino Transf (AST/SGOT) 24, Alanine Aminotransferase (ALT/SGPT) 24, Alkaline Phosphatase 68, Total Protein 5.1L, Albumin 3.3 04/05/18 05:46: Glucometer 96 04/05/18 06:50: White Blood Count 7.1, Red Blood Count 3.98L, Hemoglobin 13.1L, Hematocrit 38L, Mean Corpuscular Volume 94, Mean Corpuscular Hemoglobin 33, Mean Corpuscular Hemoglobin Concent 35, Red Cell Distribution Width 13.4, Platelet Count 181, Mean Platelet Volume 10.3, Sodium Level 134L, Potassium Level 4.1, Chloride Level 101, Carbon Dioxide Level 26, Anion Gap 7, Blood Urea Nitrogen 7, Creatinine 0.76, Estimat Glomerular Filtration Rate > 60, BUN/Creatinine Ratio 9 , Glucose Level 101, Calcium Level 8.7, Total Bilirubin 1.3H, Aspartate Amino Transf (AST/SGOT) 21, Alanine Aminotransferase (ALT/SGPT) 21, Alkaline Phosphatase 64, Total Protein 5.0L, Albumin 3.5 04/07/18 05:17: White Blood Count 7.4, Red Blood Count 4.26L, Hemoglobin 14.0, Hematocrit 40, Mean Corpuscular Volume 93, Mean Corpuscular Hemoglobin 33, Mean Corpuscular Hemoglobin Concent 35, Red Cell Distribution Width 13.3, Platelet Count 204, Mean Platelet Volume 10.5H, Sodium Level 135, Potassium Level 3.5L, Chloride Level 102, Carbon Dioxide Level 22, Anion Gap 11, Blood Urea Nitrogen 5L, Creatinine 0.69, Estimat Glomerular Filtration Rate > 60, BUN/Creatinine Ratio 7 , Glucose Level 101, Calcium Level 9.0, Total Bilirubin 0.9, Aspartate Amino Transf (AST/SGOT) 39H, Alanine Aminotransferase (ALT/SGPT) 37, Alkaline Phosphatase 72, Total Protein 5.7L, Albumin 3.5, Neutrophils (%) (Auto) 80H, Lymphocytes (%) (Auto) 8L, Monocytes (%) (Auto) 10, Eosinophils (%) (Auto) 2, Basophils (%) (Auto) 0, Neutrophils # (Auto) 5.9, Lymphocytes # (Auto) 0.6L, Monocytes # (Auto) 0.7, Eosinophils # (Auto) 0.2, Basophils # (Auto) 0.0 04/08/18 05:24: White Blood Count 6.7, Red Blood Count 4.15L, Hemoglobin 13.2L, Hematocrit 39L, Mean Corpuscular Volume 93, Mean Corpuscular Hemoglobin 32, Mean Corpuscular Hemoglobin Concent 34, Red Cell Distribution Width 13.5, Platelet Count 220, Mean Platelet Volume 10.1, Neutrophils (%) (Auto) 73, Lymphocytes (%) (Auto) 12 , Monocytes (%) (Auto) 11, Eosinophils (%) (Auto) 3, Basophils (%) (Auto) 0, Neutrophils # (Auto) 4.9, Lymphocytes # (Auto) 0.8L, Monocytes # (Auto) 0.7, Eosinophils # (Auto) 0.2, Basophils # (Auto) 0.0, Sodium Level 135, Potassium Level 3.7, Chloride Level 104, Carbon Dioxide Level 23, Anion Gap 8, Blood Urea Nitrogen 7, Creatinine 0.69, Estimat Glomerular Filtration Rate > 60, BUN/ Creatinine Ratio 10, Glucose Level 91, Calcium Level 9.0, Total Bilirubin 1.1H, Aspartate Amino Transf (AST/SGOT) 29, Alanine Aminotransferase (ALT/SGPT) 30, Alkaline Phosphatase 72, Total Protein 5.6L, Albumin 3.4 04/09/18 10:10: Urine Color YELLOW, Urine Clarity CLEAR, Urine pH 6.5, Urine Specific [place] 1.015L, Urine Protein NEGATIVE, Urine Glucose (UA) NEGATIVE, Urine Ketones NEGATIVE, Urine Nitrite NEGATIVE, Urine Bilirubin NEGATIVE, Urine Urobilinogen NORMAL, Urine Leukocyte Esterase NEGATIVE, Urine RBC (Auto) NEGATIVE, Urine RBC NONE, Urine WBC NONE, Urine Squamous Epithelial Cells NONE, Urine Crystals NONE , Urine Bacteria NEGATIVE, Urine Casts NONE, Urine Mucus NEGATIVE, Urine Culture Indicated NO Microbiology 04/03/18 Gram Stain - Final, Complete 04/03/18 Body Fluid Culture - Final, Complete No growth 04/03/18 Anaerobic Culture - Final, Complete No growth Laboratory Tests 04/02/18 21:00 04/03/18 05:27 04/03/18 16:25 04/04/18 05:58 04/05/18 06:50 04/07/18 05:17 04/08/18 05:24 Pending Labs Microbiology Date/Time Source Procedure Growth Status 04/03/18 10:20 Thoracentesis Fluid Gram Stain - Final Complete 04/03/18 10:20 Thoracentesis Fluid Body Fluid Culture - Final No growth Complete 04/03/18 10:20 Aspirate Lung Anaerobic Culture - Final No growth Complete Laboratory Tests 04/02/18 21:00: White Blood Count 6.8, Red Blood Count 4.37, Hemoglobin 14.0, Hematocrit 41, Mean Corpuscular Volume 94, Mean Corpuscular Hemoglobin 32, Mean Corpuscular Hemoglobin Concent 34, Red Cell Distribution Width 14.0, Platelet Count 230, Mean Platelet Volume 10.0, Neutrophils (%) (Auto) 74, Lymphocytes (%) (Auto) 12 , Monocytes (%) (Auto) 11, Eosinophils (%) (Auto) 2, Basophils (%) (Auto) 0, Neutrophils # (Auto) 5.1, Lymphocytes # (Auto) 0.8, Monocytes # (Auto) 0.8, Eosinophils # (Auto) 0.1, Basophils # (Auto) 0.0, Prothrombin Time 14.0, INR Comment 1.1, Activated Partial Thromboplast Time 32, Sodium Level 138, Potassium Level 3.6, Chloride Level 104, Carbon Dioxide Level 26, Anion Gap 8, Blood Urea Nitrogen 14, Creatinine 0.86, Estimat Glomerular Filtration Rate > 60 , BUN/Creatinine Ratio 16, Glucose Level 129, Calcium Level 9.3, Magnesium Level 2.5, Total Bilirubin 1.2, Aspartate Amino Transf (AST/SGOT) 32, Alanine Aminotransferase (ALT/SGPT) 34, Alkaline Phosphatase 79, Total Creatine Kinase 85, Creatine Kinase MB 2.2, Myoglobin 66.4, Troponin I < 0.30, B-Type Natriuretic Peptide 48.8, Total Protein 6.8, Albumin 4.2, Amylase Level 65, Lipase 15 04/03/18 05:27: White Blood Count 9.1, Red Blood Count 4.09, Hemoglobin 13.4, Hematocrit 39, Mean Corpuscular Volume 95, Mean Corpuscular Hemoglobin 33, Mean Corpuscular Hemoglobin Concent 35, Red Cell Distribution Width 13.6, Platelet Count 193, Mean Platelet Volume 10.6, Neutrophils (%) (Auto) 85, Lymphocytes (%) (Auto) 6, Monocytes (%) (Auto) 9, Eosinophils (%) (Auto) 0, Basophils (%) (Auto) 0, Neutrophils # (Auto) 7.7, Lymphocytes # (Auto) 0.6, Monocytes # (Auto) 0.8, Eosinophils # (Auto) 0.0, Basophils # (Auto) 0.0, Sodium Level 137, Potassium Level 4.0, Chloride Level 103, Carbon Dioxide Level 25, Anion Gap 9, Blood Urea Nitrogen 13, Creatinine 0.81, Estimat Glomerular Filtration Rate > 60, BUN/ Creatinine Ratio 16, Glucose Level 111, Calcium Level 8.9, Total Bilirubin 0.9, Aspartate Amino Transf (AST/SGOT) 31, Alanine Aminotransferase (ALT/SGPT) 36, Alkaline Phosphatase 77, Total Protein 6.1, Albumin 3.8, Lactate Dehydrogenase 169, Triglycerides Level 102, Cholesterol Level 119, LDL Cholesterol Direct 71, VLDL Cholesterol 20, HDL Cholesterol 30 04/03/18 10:20: Body Fluid Source PLEURAL, Body Fluid Color YELLOW, Body Fluid Appearance CLEAR , Body Fluid pH 7.7, Body Fluid WBC 32, Body Fluid RBC 10, Body Fluid Polynuclear WBCs 8, Body Fluid Mononuclear WBCs 4, Body Fluid Lymphocytes 72, Body Fluid Other Cells 16, Body Fluid Glucose 55, Body Fluid Total Protein 4.3, Body Fluid Lactate Dehydrogenase 142, Body Fluid Triglycerides 43, Flow Cytometry Pathologist Review [Pending] 04/03/18 16:25: Hemoglobin 13.6, Hematocrit 39 04/04/18 05:58: White Blood Count 7.5, Red Blood Count 4.01, Hemoglobin 12.7, Hematocrit 38, Mean Corpuscular Volume 95, Mean Corpuscular Hemoglobin 32, Mean Corpuscular Hemoglobin Concent 34, Red Cell Distribution Width 13.7, Platelet Count 198, Mean Platelet Volume 10.3, Sodium Level 136, Potassium Level 4.0, Chloride Level 103, Carbon Dioxide Level 26, Anion Gap 7, Blood Urea Nitrogen 11, Creatinine 0.77, Estimat Glomerular Filtration Rate > 60, BUN/Creatinine Ratio 14, Glucose Level 104, Calcium Level 8.6, Total Bilirubin 1.1, Aspartate Amino Transf (AST/SGOT) 24, Alanine Aminotransferase (ALT/SGPT) 24, Alkaline Phosphatase 68, Total Protein 5.1, Albumin 3.3 04/05/18 05:46: Glucometer 96 04/05/18 06:50: White Blood Count 7.1, Red Blood Count 3.98, Hemoglobin 13.1, Hematocrit 38, Mean Corpuscular Volume 94, Mean Corpuscular Hemoglobin 33, Mean Corpuscular Hemoglobin Concent 35, Red Cell Distribution Width 13.4, Platelet Count 181, Mean Platelet Volume 10.3, Sodium Level 134, Potassium Level 4.1, Chloride Level 101, Carbon Dioxide Level 26, Anion Gap 7, Blood Urea Nitrogen 7, Creatinine 0.76, Estimat Glomerular Filtration Rate > 60, BUN/Creatinine Ratio 9 , Glucose Level 101, Calcium Level 8.7, Total Bilirubin 1.3, Aspartate Amino Transf (AST/SGOT) 21, Alanine Aminotransferase (ALT/SGPT) 21, Alkaline Phosphatase 64, Total Protein 5.0, Albumin 3.5 04/07/18 05:17: White Blood Count 7.4, Red Blood Count 4.26, Hemoglobin 14.0, Hematocrit 40, Mean Corpuscular Volume 93, Mean Corpuscular Hemoglobin 33, Mean Corpuscular Hemoglobin Concent 35, Red Cell Distribution Width 13.3, Platelet Count 204, Mean Platelet Volume 10.5, Sodium Level 135, Potassium Level 3.5, Chloride Level 102, Carbon Dioxide Level 22, Anion Gap 11, Blood Urea Nitrogen 5, Creatinine 0.69, Estimat Glomerular Filtration Rate > 60, BUN/Creatinine Ratio 7 , Glucose Level 101, Calcium Level 9.0, Total Bilirubin 0.9, Aspartate Amino Transf (AST/SGOT) 39, Alanine Aminotransferase (ALT/SGPT) 37, Alkaline Phosphatase 72, Total Protein 5.7, Albumin 3.5, Neutrophils (%) (Auto) 80, Lymphocytes (%) (Auto) 8, Monocytes (%) (Auto) 10, Eosinophils (%) (Auto) 2, Basophils (%) (Auto) 0, Neutrophils # (Auto) 5.9, Lymphocytes # (Auto) 0.6, Monocytes # (Auto) 0.7, Eosinophils # (Auto) 0.2, Basophils # (Auto) 0.0 04/08/18 05:24: White Blood Count 6.7, Red Blood Count 4.15, Hemoglobin 13.2, Hematocrit 39, Mean Corpuscular Volume 93, Mean Corpuscular Hemoglobin 32, Mean Corpuscular Hemoglobin Concent 34, Red Cell Distribution Width 13.5, Platelet Count 220, Mean Platelet Volume 10.1, Neutrophils (%) (Auto) 73, Lymphocytes (%) (Auto) 12 , Monocytes (%) (Auto) 11, Eosinophils (%) (Auto) 3, Basophils (%) (Auto) 0, Neutrophils # (Auto) 4.9, Lymphocytes # (Auto) 0.8, Monocytes # (Auto) 0.7, Eosinophils # (Auto) 0.2, Basophils # (Auto) 0.0, Sodium Level 135, Potassium Level 3.7, Chloride Level 104, Carbon Dioxide Level 23, Anion Gap 8, Blood Urea Nitrogen 7, Creatinine 0.69, Estimat Glomerular Filtration Rate > 60, BUN/ Creatinine Ratio 10, Glucose Level 91, Calcium Level 9.0, Total Bilirubin 1.1, Aspartate Amino Transf (AST/SGOT) 29, Alanine Aminotransferase (ALT/SGPT) 30, Alkaline Phosphatase 72, Total Protein 5.6, Albumin 3.4 04/09/18 10:10: Urine Color YELLOW, Urine Clarity CLEAR, Urine pH 6.5, Urine Specific [place] 1.015, Urine Protein NEGATIVE, Urine Glucose (UA) NEGATIVE, Urine Ketones NEGATIVE, Urine Nitrite NEGATIVE, Urine Bilirubin NEGATIVE, Urine Urobilinogen NORMAL, Urine Leukocyte Esterase NEGATIVE, Urine RBC (Auto) NEGATIVE, Urine RBC NONE, Urine WBC NONE, Urine Squamous Epithelial Cells NONE, Urine Crystals NONE , Urine Bacteria NEGATIVE, Urine Casts NONE, Urine Mucus NEGATIVE, Urine Culture Indicated NO Discussion & Recommendations to be seen by me next week. Patient has appointment with pulmonology next week. Waiting for flow cytometry path review Discharge Home Medications: Active Scripts Active Lisinopril 10 Mg Tablet 10 Mg PO DAILY 30 Days Cefdinir 300 Mg Capsule 300 Mg PO BID 5 Days Acetaminophen 500 Mg Tablet 500 Mg PO Q4H PRN Clopidogrel (Clopidogrel Bisulfate) 75 Mg Tablet 75 Mg PO DAILY Reported Preservision Areds Softgel (Vit A/C/E/Zinc/Co) 1 Cap Capsule 1 Cap PO BID Pantoprazole Sodium 40 Mg Tablet.dr 40 Mg PO DAILY Aspirin 325 Mg Tablet 325 Mg PO DAILY Memantine HCl ER (Memantine HCl) 14 Mg Cap.spr.24 14 Mg PO DAILY Escitalopram Oxalate 10 Mg Tablet 10 Mg PO DAILY Atorvastatin Calcium 10 Mg Tablet 10 Mg PO HS Aricept (Donepezil HCl) 10 Mg Tablet 10 Mg PO HS Instructions to patient/family Please see electronic discharge instructions given to patient. Clinical Quality Measures AMI/AHF: ASA po Prior to arrival: No DVT/VTE Risk/Contraindication: Risk Factor Score Per Nursin RFS Level Per Nursing on Admit: 4+=Very High EDSON STRONG DO Apr 11, 2018 07:19
== END 2018-04-09 11:15 | disposition home or self-care (01) | DRG 186 ==
LOC: EDUNIT# 20:50 → ER 20:51 → 4TH 22:45
PROVIDERS: ADMIT Family Medicine; ATTEND Family Medicine
PROC: 0W993ZX Drainage of Right Pleural Cavity, Percutaneous Approach, Diagnostic (ICD-10-PCS; principal; 2018-04-03)
DX: J90 Pleural effusion, not elsewhere classified (principal); J98.19 Other pulmonary collapse; J18.9 Pneumonia, unspecified organism; R59.0 Localized enlarged lymph nodes; R64 Cachexia; G30.9 Alzheimer's disease, unspecified; F02.80 Dementia in other diseases classified elsewhere, unspecified severity, without behavioral disturbance, psychotic disturbance, mood disturbance, and anxiety; I10 Essential (primary) hypertension; E78.00 Pure hypercholesterolemia, unspecified; R42 Dizziness and giddiness; Z85.72 Personal history of non-Hodgkin lymphomas; Z92.21 Personal history of antineoplastic chemotherapy; Z86.73 Personal history of transient ischemic attack (TIA), and cerebral infarction without residual deficits; Z79.02 Long term (current) use of antithrombotics/antiplatelets; Z79.82 Long term (current) use of aspirin
CPT/HCPCS: 36415; 71045; 71046; 71260; 71275; 74178; 80053; 80061; 81000; 82150; 82550; 82553; 82945; 82962; 83615; 83690; 83735; 83874; 83880; 83986; 84157; 84478; 84484; 85014; 85018; 85025; 85027; 85610; 85730; 87070; 87075; 87205; 89051; 93005; 93041; 94640; 94664; 94760; 94762; 96374

== ENCOUNTER 2018-04-15 12:42 | Outpatient (CLI) | payer MEDICARE, OTHER ==
[~2018-04-15] VITALS: Ht 330.2 cm; Wt 78.9 kg
[~2018-04-15 12:42] MED LIST changes: +ASPI-808 PO; +ATOR10TA66 PO; +CEFD300C3 PO; +ESCI10TA55 PO; +LISI10TA2 PO; +MEMA14CA5 PO; +PANT40TA3 PO; +VIT1CAPS5 PO
== END 2018-04-15 13:47 | disposition home or self-care (01) ==
LOC: PREOP 12:42
PROVIDERS: ATTEND Internal Medicine Critical Care Medicine
DX: Z01.818 Encounter for other preprocedural examination (principal)

== ENCOUNTER 2018-04-16 06:56 | Day surgery (SDC) | payer MEDICARE, OTHER ==
[~2018-04-16] VITALS: Ht 330.2 cm; Wt 78.9 kg
[2018-04-16] MEDS ORDERED: LIDOCAINE PF 1% 2 ML AMP INJ ONE (06:57)
[2018-04-16] MEDS ORDERED: LIDOCAINE JELLY 2% (XYLOCAINE) 30 ML TUBE TOP ONE (06:57)
[2018-04-16] MEDS ORDERED: LIDOCAINE 4% INJ (XYLOCAINE) 5ML AMP INJ ONE (06:57)
[2018-04-16] MEDS ORDERED: NS IV 500 ML 500 ML ONE (07:07)
--- NOTE | 2018-04-16 07:16 | Progress Note-Pre Operative ---
Pre-Operative Progress Note H&P Reviewed The H&P was reviewed, patient examined and no changes noted. Time Seen by Provider: 07:16 Date H&P Reviewed: Apr 16, 2018 Time H&P Reviewed: 07:16 Pre-Operative Diagnosis: ILD NAILA TORRES DO Apr 16, 2018 07:16
[2018-04-16] MEDS ORDERED: MIDAZOLAM 2 MG/2 ML (VERSED) VIAL ONE ×2 (07:18)
[2018-04-16] MEDS ORDERED: fentaNYL INJECTION 100 MCG/2 ML AMP ONE (07:18)
--- NOTE | 2018-04-16 07:19 | Progress Note-Pre Operative ---
Pre-Operative Progress Note H&P Reviewed The H&P was reviewed, patient examined and no changes noted. Time Seen by Provider: 07:18 Date H&P Reviewed: Apr 16, 2018 Time H&P Reviewed: 07:16 Pre-Operative Diagnosis: atlectasis infiltrate NAILA TORRES DO Apr 16, 2018 07:19
--- NOTE | 2018-04-16 07:20 | Pulmonary Procedures ---
Pulmonary Procedures Date of Procedure Date of Service: Apr 16, 2018 Bronch Bronchoscopy with bronchoalveolar lavage (BAL), transbronchial washes and, brushes. Preop DX atelectasis r/o endobronchial mass Postop DX: Complications: none After informed consent obtained and formal time out pt was sedated using Fentanyl and Versed. Bronchoscope was advanced through the nare and vocal cords. 1% lidocaine was used to anesthetize vocal cords, epiglottis, keon, and left/right main stem bronchus. An anatomical tour was undertaken down to the segmental bronchi bilaterally. No endobronchial lesions noted. From the RML a bronchoalveolar lavage (BAL), transbronchial washes and, brushes were obtained. Pt tolerated procedure well. No complications noted. Stat CXR is pending. NAILA TORRES DO Apr 16, 2018 07:20
[2018-04-16] MEDS: MIDAZOLAM 2 MG/2 ML (VERSED) VIAL IVP PRN ×3 (07:40→07:53)
[2018-04-16] MEDS: fentaNYL INJECTION 100 MCG/2 ML AMP IVP PRN ×2 (07:42→07:50)
[2018-04-16] MEDS ORDERED: NS IV 500 ML 500 ML IV PRN (08:19)
[2018-04-16 08:40] VITALS: BP 126/75
--- NOTE | 2018-04-16 08:49 | Diagnostic Imaging Report ---
Indication: Status post bronchoscopy. Time of exam: 8:32 AM Correlation is made with prior chest from 04/09/2018. Large right pleural effusion persists. No pneumothorax is seen status post bronchoscopy. Left lung is clear. Impression: Large right pleural effusion. No definite pneumothorax is detected. Dictated by: Dictated on workstation # [id number]
[2018-04-16 08:50] VITALS: BP 150/84
[2018-04-16 09:15] VITALS: BP 146/83
[2018-04-16 09:45] VITALS: BP 146/83
== END 2018-04-16 09:30 | disposition home or self-care (01) ==
LOC: ENDO 06:56
PROVIDERS: ATTEND Internal Medicine Critical Care Medicine
DX: J98.11 Atelectasis (principal); G47.36 Sleep related hypoventilation in conditions classified elsewhere; C85.90 Non-Hodgkin lymphoma, unspecified, unspecified site; F03.90 Unspecified dementia, unspecified severity, without behavioral disturbance, psychotic disturbance, mood disturbance, and anxiety; R63.4 Abnormal weight loss; Z79.82 Long term (current) use of aspirin; Z87.09 Personal history of other diseases of the respiratory system
CPT/HCPCS: 71045; 87070; 87101; 87106; 87116; 87205; 94640

== ENCOUNTER → 2018-04-22 | Outpatient (CLI) | payer MEDICARE, OTHER ==
--- NOTE | 2018-04-22 14:46 | Diagnostic Imaging Report ---
INDICATION: Non-Hodgkin's lymphoma history and right lung mass. Serum blood glucose level at the time of injection is 94 mg/dL. Patient was administered 12.8 mCi of F-18 FDG intravenously in the left forearm and PET imaging was performed from the top of the skull to the mid thighs. Noncontrast CT was also performed for attenuation correction and anatomic correlation. No prior PET study is available for comparison. Comparison is made with conventional CT chest, abdomen and pelvis from 04/03/2018. FINDINGS: There is symmetric activity throughout the brain. No hypermetabolic foci within the neck is identified. There are multiple sites of nodularity and hypermetabolism involving the pleura of the right chest. An area of nodular hypermetabolism along the medial pleura at the level of the aortic arch is seen with SUV max of approximately 4.9. More inferiorly and anteriorly, an area of pleural hypermetabolism has an SUV max of 5.9. There is thickened hypermetabolic pleura in the lower right chest laterally and posteriorly as well. A precarinal lymph node demonstrates some hypermetabolism with SUV max of 4. Subcarinal hypermetabolic node on the left demonstrates SUV max of 4.7. Right hilar lymph node demonstrates SUV max of 3.2. 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 Lobulated soft tissue at this level measures approximately 2.5 x 2.2 cm. Imaging through the abdomen demonstrates physiologic activity in the GI and tracts. No suspicious abnormality is seen. Patient does have a large right pleural effusion. IMPRESSION: 1. Large right pleural effusion. There are hypermetabolic lymph nodes in the middle mediastinum and right hilum as well as within the cardiophrenic fat. There is nodular thickening and hypermetabolism involving the right pleura. Mesothelioma is a consideration. No abnormal hypermetabolism in the abdomen or pelvis is identified. Dictated by: Dictated on workstation # [id number]
== END ==
LOC: RAD 08:34
PROVIDERS: ATTEND Nurse Practitioner Family
DX: C85.90 Non-Hodgkin lymphoma, unspecified, unspecified site (principal); J90 Pleural effusion, not elsewhere classified; R91.8 Other nonspecific abnormal finding of lung field; J98.11 Atelectasis

== ENCOUNTER 2018-06-07 19:13 | Day surgery (SDC) | payer MEDICARE, OTHER ==
[~2018-06-07] VITALS: Ht 170.2 cm; Wt 76.7 kg
[~2018-06-07 19:13] MED LIST changes: +ONDA2VIACC IV; -ONDA4VIA28 IV
[2018-06-07] MEDS ORDERED: ASPIRIN 81 MG CHEW (CHILDREN'S ASA) PO ONE (19:30)
[2018-06-07 19:34] LABS: BASOPHILS % (AUTO) 0 % (0-10); EOSINOPHILS # (AUTO) 0.1 10^3/uL (0.0-0.3); EOSINOPHILS % (AUTO) 1 % (0-10); HEMATOCRIT 42 % (40-54); LYMPHOCYTES # (AUTO) 0.8 X 10^3 (1.0-4.0); LYMPHOCYTES % (AUTO) 9 % (12-44); MEAN CORPUSCULAR HEMOGLOBIN 32 PG (25-34); MEAN CORPUSCULAR HGB CONC 34 G/DL (32-36); MEAN CORPUSCULAR VOLUME 96 FL (80-99); MEAN PLATELET VOLUME 9.9 FL (7.4-10.4); MONOCYTES # (AUTO) 0.8 X 10^3 (0.0-1.0); MONOCYTES % (AUTO) 9 % (0-12); NEUTROPHILS # (AUTO) 7.4 X 10^3 (1.8-7.8); NEUTROPHILS % (AUTO) 81 % (42-75); PLATELET COUNT 248 10^3/uL (130-400); RED BLOOD COUNT 4.35 10^6/uL (4.35-5.85); RED CELL DISTRIBUTION WIDTH 13.9 % (10.0-14.5); WHITE BLOOD COUNT 9.1 10^3/uL (4.3-11.0)
--- NOTE | 2018-06-07 19:37 | ED Chest Pain ---
General Stated Complaint: CHEST PAIN Source: patient (POOR HISTORIAN--HAS DEMENTIA. ), old records, other (FEMALE S.O. OF 30 YEARS IS ALSO DPOA. GIVES ALL INFORMATION) History of Present Illness Date Seen by Provider: Jun 07, 2018 Time Seen by Provider: 19:19 Initial Comments PT ARRIVES VIA POV C/O RIGHT SIDED CHEST PAIN--PAIN IS WORST WITH BREATHING FEMALE S.O. REPORTS THAT HE HAS HAD THE PAIN ALL DAY, AND THEY HAVE BEEN IN [place] ALL DAY BUT HE REFUSED TO GO TO ER THERE SHE ALSO STATES HE WAS COMPLAINING OF PAIN A FEW DAYS AGO WELL, BUT THEN HE DID NOT COMPLAIN OF IT FOR A COUPLE OF DAYS C/O SHORTNESS OF BREATH NO FEVER NO COUGH NO SWELLING IN LEGS OR FEET FEMALE STATES THAT "IT'S PROBABLY HIS LUNG HAS COLLAPSED AGAIN--HE WAS HERE THE FIRST OF APRIL AND THEY DRAINED 2 1/2 LITERS OF FLUID OFF IT, BUT IT STARTED TO FILL BACK UP AGAIN" PT WAS SEEN HERE 04/02/18 AND HAD COMPLETE OPACIFICATION OF RIGHT LUNG/LARGE PLEURAL EFFUSION WITH COMPLETE COLLAPSE OF RIGHT LUNG, WITH NODULAR DENSITIES IN RIGHT LOWER THORAX AND MEDIASTINAL NODES PT HAD THORACENTESIS HE ALSO HAD A BRONCHOSCOPY 04/16/[address] TORRES. 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 ONCOLOGY WAS CONSULTED, THIS IS LIKELY A MALIGNANT EFFUSION. FEMALE REPORTS THAT PT HAS DECLINED ANY TREATMENT OR FURTHER EVALUATION FOR CANCER. 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 . PT IS DNR/DNI PCP: DR. STRONG Allergies and Home Medications Allergies Coded Allergies: No Known Drug Allergies (Unverified , 10/23/11) Home Medications Acetaminophen 500 Mg Tablet, 500 MG PO Q4H PRN for MILD PAIN Prescribed by: BOSTON BARGER on 05/31/15 0948 Aspirin 325 Mg Tablet, 325 MG PO DAILY, (Reported) Atorvastatin Calcium 10 Mg Tablet, 10 MG PO HS, (Reported) Clopidogrel Bisulfate 75 Mg Tablet, 75 MG PO DAILY Prescribed by: BOSTON BARGER on 05/31/15 0948 Donepezil HCl 10 Mg Tablet, 10 MG PO HS, (Reported) Escitalopram Oxalate 10 Mg Tablet, 10 MG PO DAILY, (Reported) Lisinopril 10 Mg Tablet, 10 MG PO DAILY Prescribed by: MELISSA BRANTLEY on 04/09/18 0944 Memantine HCl 14 Mg Cap.spr.24, 14 MG PO DAILY, (Reported) Pantoprazole Sodium 40 Mg Tablet.dr, 40 MG PO DAILY, (Reported) Vit A/C/E/Zinc/Co 1 Cap Capsule, 1 CAP PO BID, (Reported) Patient Home Medication List Home Medication List Reviewed: Yes Review of Systems Review of Systems Constitutional: No chills, No diaphoresis, No dizziness, No fever Respiratory: See HPI; Denies Cough; Shortness of Air Cardiovascular: See HPI, Chest Pain; Denies Edema, Denies Irregular Heart Rate , Denies Lightheadedness, Denies Palpitations, Denies Other Gastrointestinal: No Symptoms Reported Genitourinary: No Symptoms Reported Musculoskeletal: no symptoms reported; No back pain Skin: no symptoms reported Psychiatric/Neurological: No Symptoms Reported, Pre-Existing Deficit (DEMENTIA) Endocrine: No Symptoms Reported Hematologic/Lymphatic: No Symptoms Reported Past Djsqnzt-Dclbrg-Jlczat Hx Patient Social History Alcohol Use: Denies Use Recreational Drug Use: No Smoking Status: Never a Smoker 2nd Hand Smoke Exposure: No Recent Foreign Travel: No Contact w/Someone Who Travel: No Recent Hopitalizations: No Immunizations Up To Date Date of Pneumonia Vaccine: May 10, 2010 Date of Influenza Vaccine: May 11, 2015 Seasonal Allergies Seasonal Allergies: No Past Medical History Surgeries: Yes (RIGHT THORACENTESIS; HERNIA REPAIR) Abdominal, Appendectomy Respiratory: Yes (LARGE RIGHT PLEURAL EFFUSION CAUSING COMPLETE COLLAPSE OF RIGHT LUNG 03/2018.) Currently Using CPAP: No Currently Using BIPAP: No Cardiac: Yes High Cholesterol, Hypertension Neurological: Yes (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 ) Dementia, Stroke Reproductive Disorders: No Sexually Transmitted Disease: No Genitourinary: No Gastrointestinal: No Musculoskeletal: No Endocrine: No HEENT: No Cancer: Yes (NON-HODGKINS LYMPHOMA, 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53, 1895) Lymphoma Did You Recieve Any Treatments: Yes What Type of Treatment Did You: Chemotherapy Psychosocial: No Integumentary: No Blood Disorders: No Family Medical History Hypertension 19 FATHER Physical Exam Vital Signs Vital Signs - First Documented Capillary Refill : Height, Weight, BMI Height: 5'70.00" Weight: 174lbs. 0.0oz. [id number]; 7.2 BMI Method:Stated General Appearance: No Apparent Distress, WD/WN Neck: Full Range of Motion, Normal Inspection, Non Tender, Supple; No JVD Respiratory: No Accessory Muscle Use, No Respiratory Distress, Other ("HOLLOW" SOUNDS ON RIGHT. NORMAL BREATH SOUNDS ON LEFT. SLIGHTLY DYSPNEIC ON ARRIVAL, IMPROVED AT REST AND WITH O2) Cardiovascular: Regular Rate, Rhythm, No Edema, No JVD, No Murmur, Normal Peripheral Pulses Gastrointestinal: Normal Bowel Sounds, No Organomegaly, No Pulsatile Mass, Non Tender, Soft Extremity: Normal Capillary Refill, Normal Inspection, Normal Range of Motion, Non Tender, No Pedal Edema Neurologic/Psychiatric: Alert, Oriented x3 (BUT POOR MEMORY), No Motor/Sensory Deficits, Normal Mood/Affect, rehab tech II-XII Norm as Tested Skin: Normal Color, Warm/Dry Progress/Results/Core Measures Results/Orders Lab Results Laboratory Tests Test 06/07/18 19:25 Range/Units White Blood Count 9.1 4.3-11.0 10^3/uL Red Blood Count 4.35 4.35-5.85 10^6/uL Hemoglobin 14.0 13.3-17.7 G/DL Hematocrit 42 40-54 % Mean Corpuscular Volume 96 80-99 FL Mean Corpuscular Hemoglobin 32 25-34 PG Mean Corpuscular Hemoglobin Concent 34 32-36 G/DL Red Cell Distribution Width 13.9 10.0-14.5 % Platelet Count 248 130-400 10^3/uL Mean Platelet Volume 9.9 7.4-10.4 FL Neutrophils (%) (Auto) 81 H 42-75 % Lymphocytes (%) (Auto) 9 L 12-44 % Monocytes (%) (Auto) 9 0-12 % Eosinophils (%) (Auto) 1 0-10 % Basophils (%) (Auto) 0 0-10 % Neutrophils # (Auto) 7.4 1.8-7.8 X 10^3 Lymphocytes # (Auto) 0.8 L 1.0-4.0 X 10^3 Monocytes # (Auto) 0.8 0.0-1.0 X 10^3 Eosinophils # (Auto) 0.1 0.0-0.3 10^3/uL Basophils # (Auto) 0.0 0.0-0.1 10^3/uL Prothrombin Time 13.6 12.2-14.7 SEC INR Comment 1.0 0.8-1.4 Activated Partial Thromboplast Time 32 24-35 SEC Sodium Level 134 L 135-145 MMOL/L Potassium Level 4.4 3.6-5.0 MMOL/L Chloride Level 98 98-107 MMOL/L Carbon Dioxide Level 23 21-32 MMOL/L Anion Gap 13 5-14 MMOL/L Blood Urea Nitrogen 14 7-18 MG/DL Creatinine 0.86 0.60-1.30 MG/DL Estimat Glomerular Filtration Rate > 60 BUN/Creatinine Ratio 16 Glucose Level 111 H 70-105 MG/DL Calcium Level 9.7 8.5-10.1 MG/DL Corrected Calcium 9.4 8.5-10.1 MG/DL Magnesium Level 2.3 1.8-2.4 MG/DL Total Bilirubin 1.2 H 0.1-1.0 MG/DL Aspartate Amino Transf (AST/SGOT) 42 H 5-34 U/L Alanine Aminotransferase (ALT/SGPT) 51 0-55 U/L Alkaline Phosphatase 93 40-136 U/L Myoglobin 71.4 10.0-92.0 NG/ML Troponin I < 0.30 <0.30 NG/ML B-Type Natriuretic Peptide 57.1 <100.0 PG/ML Total Protein 7.4 6.4-8.2 GM/DL Albumin 4.4 3.2-4.5 GM/DL Amylase Level 87 25-125 U/L Lipase 30 8-78 U/L My Orders Orders - TIN RAMOS DO Cbc With Automated Diff (06/07/18 19:19) Magnesium (06/07/18 19:19) Chest 1 View, Ap/Pa Only (06/07/18 19:19) Ekg Tracing (06/07/18 19:19) Cardiac Profile 1 (06/07/18 19:19) Comprehensive Metabolic Panel (06/07/18 19:19) Myoglobin Serum (06/07/18 19:19) Protime With Inr (06/07/18 19:19) Partial Thromboplastin Time (06/07/18 19:19) O2 (06/07/18 19:19) Monitor-Rhythm Ecg Trace Only (06/07/18 19:19) Lipid Panel (06/08/18 06:00) Aspirin Chewable Tablet (Baby Aspirin Ch (06/07/18 19:30) Nitroglycerin 0.4 Mg Btl 25's (Nitrostat (06/07/18 19:30) Saline Lock/Iv-Start (06/07/18 19:19) Lipase (06/07/18 19:19) Amylase (06/07/18 19:19) BNP (06/07/18 19:19) Fentanyl Injection (Sublimaze Injection (06/07/18 19:43) Medications Given in ED Current Medications Medications Dose Ordered Sig/Erica Route Start Time Stop Time Status Last Admin Dose Admin Aspirin 324 mg ONCE ONCE PO 06/07/18 19:30 06/07/18 19:31 DC 06/07/18 19:37 324 MG Nitroglycerin 0.4 mg UD PRN SL 06/07/18 19:30 06/07/18 19:53 0.4 MG Vital Signs/I&O 06/07/18 06/07/18 06/07/18 19:13 19:13 19:13 Temp 98.6 Pulse 66 Resp 24 B/P (MAP) 188/116 (140) Pulse Ox 97 97 O2 Delivery Nasal Cannula Nasal Cannula Nasal Cannula O2 Flow Rate 2.00 3.0 2.00 Progress Progress Note : Progress Note NO DETERIORATION IN PT'S CONDITION DURING ER STAY BP DOWN WITH NTG SL X 2 PAIN IMPROVED WITH FENTANYL SHORTNESS OF BREATH IMPROVED WITH REST AND O2, O2 SATS IN MID TO UPPER 90'S FOR ENTIRE ER STAY. Initial ECG Impression Date: Jun 07, 2018 Initial ECG Impression Time: 19:22 Initial ECG Rate: 67 Initial ECG Rhythm: Normal Sinus Diagnostic Imaging Comments CXR--VERY LARGE RIGHT PLEURAL EFFUSION WITH COMPLETE OPACIFICATION OF RIGHT LUNG , AND RIGHT TO LEFT MEDIASTINAL SHIFT--INCREASED IN SIZE FROM PREVIOUS. PER RADIOLOGIST REPORT Reviewed: Reviewed by Me Departure Communication (Admissions) 1934--SPOKE WITH DR. MANRIQUE, SURGEON BAR STEWARD. ACCEPTS PT FOR ADMIT. WILL DO THORACENTESIS IN AM, NO ULTRASOUND COVERAGE AVAILABLE TONIGHT. 1946--SPOKE WITH DR. GOLDSTEIN, HOSPITALIST BAR STEWARD. WILL SEE PT IN CONSULT. Impression Primary Impression: LARGE RIGHT PLEURAL EFFUSION Additional Impressions: HTN (hypertension) Right-sided chest pain Disposition: ADMITTED INPATIENT Condition: Improved Admissions Decision to Admit Reason: Admit from ER (General) Decision to Admit/Date: Jun 07, 2018 Time/Decision to Admit Time: 19:35 Departure-Patient Inst. Referrals: EDSON STRONG DO (PCP/Family) Primary Care Physician TIN RAMOS DO Jun 07, 2018 19:37
[2018-06-07] MEDS: NITROGLYCERIN 0.4 MG SL TABS BTL 25'S SL PRN ×2 (19:38→19:53)
[2018-06-07] MEDS ORDERED: fentaNYL INJECTION 100 MCG/2 ML AMP IVP STA (19:43)
--- NOTE | 2018-06-07 19:43 | Diagnostic Imaging Report ---
EXAMINATION: Portable chest. INDICATION: Right-sided chest pain. COMPARISON: Prior PET scan from 04/22/2018 and chest radiograph from 04/16/2018. FINDINGS: When compared to the prior examination, there has been further increase in size of the patient's large right-sided pleural effusion with no definitive residual aeration of the right lung demonstrated. The mediastinum is shifted to the left. The left lung appears clear. There is no evidence of a pneumothorax. The left-sided pulmonary vascularity appears within normal limits. IMPRESSION: Further interval increase in large right-sided pleural effusion with now complete white out of the right chest and increased shift of the mediastinum from right to left. Dictated by: Dictated on workstation # [id number]
[2018-06-07 19:47] LABS: PROTHROMBIN TIME PATIENT 13.6 SEC (12.2-14.7)
[2018-06-07 19:52] LABS: ALANINE AMINOTRANSFERASE 51 U/L (0-55); ALBUMIN 4.4 GM/DL (3.2-4.5); ALKALINE PHOSPHATASE 93 U/L (40-136); AMYLASE 87 U/L (25-125); BILIRUBIN,TOTAL 1.2 MG/DL (0.1-1.0); BUN/CREATININE RATIO 16; CALCIUM 9.7 MG/DL (8.5-10.1); CARBON DIOXIDE 23 MMOL/L (21-32); CREATININE SERUM 0.86 MG/DL (0.60-1.30); GFR ESTIMATED > 60; GLUCOSE 111 MG/DL (70-105); LIPASE 30 U/L (8-78); TOTAL PROTEIN 7.4 GM/DL (6.4-8.2)
[2018-06-07 19:58] LABS: MYOGLOBIN SERUM 71.4 NG/ML (10.0-92.0)
[2018-06-07 20:08] LABS: CHLORIDE 98 MMOL/L (98-107); MAGNESIUM 2.3 MG/DL (1.8-2.4); POTASSIUM 4.4 MMOL/L (3.6-5.0); SODIUM 134 MMOL/L (135-145)
--- OUTSIDE RECORDS SUMMARY | 2018-06-07 20:21 | XMS REPORT | Continuity of Care Document ---
Demographics Preferred Language Unknown Marital Status Unknown Jehovah'S Witness Affiliation Unknown Race Unknown Ethnic Group Unknown Author Author [facility] Address Unknown Phone Unavailable Allergies Active Description Code Type Severity Reaction Onset Reported/Identified Relationship to Patient Clinical Status Yes No Known Drug Allergies [id number] Drug Allergy Unknown N/A 10/23/2011 Medications There is no data. Problems Date Dx Coded Attending Type Code Diagnosis Diagnosed By 10/24/2011 Ot 487.1 10/24/2011 Ot 786.2 05/28/2015 LUBNA PENA, PEBBLES R Ot 202.80 05/28/2015 LUBNA PENA, PEBBLES R Ot 434.91 05/28/2015 LUBNA PENA, PEBBLES R Ot 435.9 05/28/2015 LUBNA PENA, PEBBLES R Ot 729.89 05/28/2015 LUBNA PENA, PEBBLES R Ot 781.94 05/28/2015 LUBNA PENA, PEBBLES R Ot 784.51 05/28/2015 LUBNA PENA, PEBBLES R Ot 784.59 05/28/2015 LUBNA PENA, PEBBLES R Ot 202.80 05/28/2015 LUBNA PENA, PEBBLES R Ot 434.91 05/28/2015 LUBNA PENA, PEBBLES R Ot 435.9 05/28/2015 LUBNA PENA, PEBBLES R Ot 729.89 05/28/2015 LUBNA PENA, PEBBLES R Ot 781.94 05/28/2015 LUBNA PENA, PEBBLES R Ot 784.51 05/28/2015 LUBNA PENA, PBEBLES R Ot 784.59 05/29/2015 LUBNA PENA, PEBBLES R Ot 202.80 05/29/2015 LUBNA PENA, PEBBLES R Ot 434.91 05/29/2015 LUBNA PENA, PEBBLES R Ot 435.9 05/29/2015 LUBNA PENA, PEBBLES R Ot 729.89 05/29/2015 LUBNA PENA, PEBBLES R Ot 781.94 05/29/2015 LUBNA PENA, PEBBLES R Ot 784.51 05/29/2015 LUBNA PENA, PEBBLES R Ot 784.59 05/30/2015 LUBNA PENA, PEBBLES R Ot 202.80 05/30/2015 LUBNA PENA, PEBBLES R Ot 434.91 05/30/2015 LUBNA PENA, PEBBLES R Ot 729.89 05/30/2015 LUBNA PENA, PEBBLES R Ot 781.94 05/30/2015 LUBNA PENA, PEBBLES R Ot 784.51 05/30/2015 LUBNA PENA, PEBBLES R Ot 784.59 05/30/2015 LUBNA PENA, PEBBLES R Ot 202.80 05/30/2015 LUBNA PENA, PEBBLES R Ot 434.91 05/30/2015 LUBNA PENA, PEBBLES R Ot 729.89 05/30/2015 LUBNA PENA, PEBBLES R Ot 781.94 05/30/2015 LUBNA PENA, PEBBLES R Ot 784.51 05/30/2015 LUBNA PENA, PEBBLES R Ot 784.59 05/31/2015 LUBNA PENA, PEBBLES R Ot 202.80 05/31/2015 LUBNA PENA, PEBBLES R Ot 434.91 CEREBRAL ART OCCLUSION NOS W CEREBRAL IN 05/31/2015 LUBNA PENA, PEBBLES R Ot 729.89 MUSCSKEL SYMPT LIMB NEC 05/31/2015 LUBNA PENA, PEBBLES R Ot 781.94 FACIAL WEAKNESS 05/31/2015 LUBNA PENA, PEBBLES R Ot 784.51 DYSARTHRIA 05/31/2015 LUBNA PENA, PEBBLES R Ot 784.59 OTHER SPEECH DISTURBANCE 06/03/2015 Ot 202.80 06/03/2015 Ot 783.21 06/03/2015 Ot 786.2 06/03/2015 Ot 331.9 06/03/2015 Ot 593.9 06/03/2015 Ot 780.93 06/03/2015 Ot 813.42 06/03/2015 Ot E000.8 06/03/2015 Ot E849.0 06/03/2015 Ot E888.9 06/03/2015 DILLAN PENA, SUAD E Ot 331.83 06/03/2015 DILLAN PENA, SUAD E Ot 332.0 06/03/2015 DILLAN PENA, SUAD E Ot 438.21 06/03/2015 DILLAN PENA, SUAD E Ot 438.89 06/03/2015 SUAD GRIMALDO MD E Ot 780.4 06/03/2015 SUAD GRIMALDO MD E Ot 781.2 06/03/2015 SUAD GRIMALDO MD E Ot V10.79 06/03/2015 DILLAN PENA SUAD E Ot V57.89 06/06/2015 Ot 202.80 06/06/2015 Ot 783.21 06/06/2015 Ot 786.2 06/06/2015 Ot 331.9 06/06/2015 Ot 593.9 06/06/2015 Ot 780.93 06/06/2015 Ot 813.42 06/06/2015 Ot E000.8 06/06/2015 Ot E849.0 06/06/2015 Ot E888.9 06/06/2015 SUAD GRIMALDO MD E Ot 331.83 06/06/2015 SUAD GRIMALDO MD E Ot 332.0 06/06/2015 SUAD GRIMALDO MD E Ot 438.21 06/06/2015 SUAD GRIMALDO MD E Ot 438.89 06/06/2015 SUAD GRIMALDO MD E Ot 780.4 06/06/2015 SUAD GRIMALDO MD E Ot 781.2 06/06/2015 SUAD GRIMALDO MD E Ot V10.79 06/06/2015 SUAD GRIMALDO MD E Ot V57.89 06/08/2015 SUAD GRIMALDO MD E Ot 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80 07/02/2015 Ot 783.21 07/02/2015 Ot 786.2 07/02/2015 Ot 331.9 07/02/2015 Ot 593.9 07/02/2015 Ot 780.93 07/02/2015 Ot 813.42 07/02/2015 Ot E000.8 07/02/2015 Ot E849.0 07/02/2015 Ot E888.9 08/29/2015 STACIE BLACK MD Ot F03.90 UNSPECIFIED DEMENTIA WITHOUT BEHAVIORAL 08/29/2015 STACIE BLACK MD Ot 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 08/29/2015 STACIE BLACK MD Ot R42 DIZZINESS AND GIDDINESS 08/29/2015 Ot 202.80 08/29/2015 Ot 783.21 08/29/2015 Ot 786.2 08/29/2015 Ot 331.9 08/29/2015 Ot 593.9 08/29/2015 Ot 780.93 08/29/2015 Ot 813.42 08/29/2015 Ot E000.8 08/29/2015 Ot E849.0 08/29/2015 Ot E888.9 04/03/2018 GELLENDER DOEDSON Ot C85.90 NON-HODGKIN LYMPHOMA, UNSPECIFIED, UNSPE 04/03/2018 GELLENDER DOEDSON Ot E78.00 PURE HYPERCHOLESTEROLEMIA, UNSPECIFIED 04/03/2018 GELLENDER DODESON Ot F02.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 CLASSD ELSWHR W 04/03/2018 GELLENDER DOEDSON Ot G30.9 ALZHEIMER'S DISEASE, UNSPECIFIED 04/03/2018 GELLENDER DOEDSON Ot J90 PLEURAL EFFUSION, NOT ELSEWHERE CLASSIFI 04/03/2018 GELLENDER DOEDSON Ot J98.19 OTHER PULMONARY COLLAPSE 04/03/2018 GELLENDER DOEDSON Ot R42 DIZZINESS AND GIDDINESS 04/03/2018 GELLENDER DOEDSON Ot R59.0 LOCALIZED ENLARGED LYMPH NODES 04/03/2018 GELLENDER DOEDSON Ot R63.4 ABNORMAL WEIGHT LOSS 04/03/2018 GELLENDER DOEDSON Ot Z79.02 ALF (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 ANTITHROMBOTI 04/03/2018 GELLENDER DOEDSON Ot 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.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 OFFICE 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 (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 04/03/2018 GELLENDER DO, EDSON Salazar Ot Z86.73 PRSNL HX OF TIA (TIA), AND CEREB INFRC W 04/03/2018 GELLENDER DO, EDSON Salazar Ot Z92.21 PERSONAL HISTORY OF ANTINEOPLASTIC CHEMO 04/04/2018 GELLENDER DO, EDSON Marie Ot C85.90 NON-HODGKIN LYMPHOMA, UNSPECIFIED, UNSPE 04/04/2018 GELLENDER DO, EDSON Salazar Ot E78.00 PURE HYPERCHOLESTEROLEMIA, UNSPECIFIED 04/04/2018 GELLENDER DO, EDSON Salazar Ot F02.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 CLASSD ELSWHR W 04/04/2018 GELLENDER DO, EDSON Salazar Ot G30.9 ALZHEIMER'S DISEASE, UNSPECIFIED 04/04/2018 GELLENDER DO, EDSON Salazar Ot J90 PLEURAL EFFUSION, NOT ELSEWHERE CLASSIFI 04/04/2018 GELLENDER DO, EDSON Salazar Ot J98.19 OTHER PULMONARY COLLAPSE 04/04/2018 GELLENDER DO, EDSON Salazar Ot R42 DIZZINESS AND GIDDINESS 04/04/2018 GELLENDER DO, EDSON Salazar Ot R59.0 LOCALIZED ENLARGED LYMPH NODES 04/04/2018 GELLENDER DO, EDSON Salazar Ot R63.4 ABNORMAL WEIGHT LOSS 04/04/2018 GELLENDER DO, EDSON Salazar Ot Z79.02 ALF (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 ANTITHROMBOTI 04/04/2018 GELLENDER DO, EDSON Salazar Ot 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.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 OFFICE ASSISTANT (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 04/04/2018 GELLENDER DO, EDSON Salazar Ot Z86.73 PRSNL HX OF TIA (TIA), AND CEREB INFRC W 04/04/2018 GELLENDER DO, EDSON Salazar Ot Z92.21 PERSONAL HISTORY OF ANTINEOPLASTIC CHEMO 04/05/2018 GELLENDER DO, EDSON Salazar Ot C85.90 NON-HODGKIN LYMPHOMA, UNSPECIFIED, UNSPE 04/05/2018 GELLENDER DO, EDSON Salazar Ot E78.00 PURE HYPERCHOLESTEROLEMIA, UNSPECIFIED 04/05/2018 GELLENDER DO, EDSON Salazar Ot F02.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 CLASSD ELSWHR W 04/05/2018 GELLENDER DO, EDSON Salazar Ot G30.9 ALZHEIMER'S DISEASE, UNSPECIFIED 04/05/2018 GELLENDER DO, EDSON Salazar Ot J90 PLEURAL EFFUSION, NOT ELSEWHERE CLASSIFI 04/05/2018 GELLENDER DO, EDSON Salazar Ot J98.19 OTHER PULMONARY COLLAPSE 04/05/2018 GELLENDER DO, EDSON Salazar Ot R42 DIZZINESS AND GIDDINESS 04/05/2018 GELLENDER DO, EDSON Salazar Ot R59.0 LOCALIZED ENLARGED LYMPH NODES 04/05/2018 GELLENDER DO, EDSON Salazar Ot R63.4 ABNORMAL WEIGHT LOSS 04/05/2018 GELLENDER DO, EDSON Salazar Ot Z79.02 ALF (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 ANTITHROMBOTI 04/05/2018 GELLENDER DO, EDSON Salazar Ot Z79.82 ALF (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 ASPIRIN 04/05/2018 GELLENDER DO, EDSON Salazar Ot Z86.73 PRSNL HX OF TIA (TIA), AND CEREB INFRC W 04/05/2018 GELLENDER DO, EDSON Salazar Ot Z92.21 PERSONAL HISTORY OF ANTINEOPLASTIC CHEMO 04/06/2018 GELLENDER DO, EDSON Salazar Ot C85.90 NON-HODGKIN LYMPHOMA, UNSPECIFIED, UNSPE 04/06/2018 GELLENDER DO, EDSON Salazar Ot E78.00 PURE HYPERCHOLESTEROLEMIA, UNSPECIFIED 04/06/2018 GELLENDER DO, EDSON Salazar Ot F02.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 CLASSD ELSWHR W 04/06/2018 GELLENDER DO, EDSON Salazar Ot G30.9 ALZHEIMER'S DISEASE, UNSPECIFIED 04/06/2018 GELLENDER DO, EDSON Salazar Ot J90 PLEURAL EFFUSION, NOT ELSEWHERE CLASSIFI 04/06/2018 GELLENDER DO, EDSON Salazar Ot J98.19 OTHER PULMONARY COLLAPSE 04/06/2018 GELLENDER DO, EDOSN Salazar Ot R42 DIZZINESS AND GIDDINESS 04/06/2018 GELLENDER DO, EDSON Salazar Ot R59.0 LOCALIZED ENLARGED LYMPH NODES 04/06/2018 GELLENDER DO, EDSON Salazar Ot R63.4 ABNORMAL WEIGHT LOSS 04/06/2018 GELLENDER DO, EDSON Salazar Ot Z79.02 TEMPORARY OFFICE ASSISTANT (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 ANTITHROMBOTI 04/06/2018 GELLENDER DO, EDSON Salazar Ot Z79.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 OFFICE ASSISTANT (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 ASPIRIN 04/06/2018 GELLENDER DO, EDSON Salazar Ot Z86.73 PRSNL HX OF TIA (TIA), AND CEREB INFRC W 04/06/2018 GELLENDER DO, EDSON Salazar Ot Z92.21 PERSONAL HISTORY OF ANTINEOPLASTIC CHEMO 04/07/2018 GELLENDER DO, EDSON Salazar Ot C85.90 NON-HODGKIN LYMPHOMA, UNSPECIFIED, UNSPE 04/07/2018 GELLENDER DO, EDSON Salazar Ot E78.00 PURE HYPERCHOLESTEROLEMIA, UNSPECIFIED 04/07/2018 GELLENDER DO, EDSON Marie Ot F02.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 CLASSD ELSWHR W 04/07/2018 GELLENDER DO, EDSON Salazar Ot G30.9 ALZHEIMER'S DISEASE, UNSPECIFIED 04/07/2018 GELLENDER DO, EDSON Salazar Ot J90 PLEURAL EFFUSION, NOT ELSEWHERE CLASSIFI 04/07/2018 GELLENDER DO, EDSON Salazar Ot J98.19 OTHER PULMONARY COLLAPSE 04/07/2018 GELLENDER DO, EDSON Salazar Ot R42 DIZZINESS AND GIDDINESS 04/07/2018 GELLENDER DO, EDSON Salazar Ot R59.0 LOCALIZED ENLARGED LYMPH NODES 04/07/2018 GELLENDER DO, EDSON Salazar Ot R63.4 ABNORMAL WEIGHT LOSS 04/07/2018 GELLENDER DO, EDSON Salazar Ot Z79.02 TEMPORARY OFFICE ASSISTANT (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 ANTITHROMBOTI 04/07/2018 GELLENDER DO, EDSON Salazar Ot Z79.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 OFFICE ASSISTANT (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 ASPIRIN 04/07/2018 GELLENDER DO, EDSON Marie Ot Z86.73 PRSNL HX OF TIA (TIA), AND CEREB INFRC W 04/07/2018 GELLENDER DO, EDSON Salazar Ot Z92.21 PERSONAL HISTORY OF ANTINEOPLASTIC CHEMO 04/08/2018 GELLENDER DO, EDSON Salazar Ot C85.90 NON-HODGKIN LYMPHOMA, UNSPECIFIED, UNSPE 04/08/2018 GELLENDER DO, EDSON Salazar Ot E78.00 PURE HYPERCHOLESTEROLEMIA, UNSPECIFIED 04/08/2018 GELLENDER DO, EDSON Salazar Ot F02.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 CLASSD ELSWHR W 04/08/2018 GELLENDER DO, EDSON Salazar Ot G30.9 ALZHEIMER'S DISEASE, UNSPECIFIED 04/08/2018 GELLENDER DO, EDSON Marie Ot J90 PLEURAL EFFUSION, NOT ELSEWHERE CLASSIFI 04/08/2018 GELLENDER DO, EDSON Salazar Ot J98.19 OTHER PULMONARY COLLAPSE 04/08/2018 GELLENDER DO, EDSON Salazar Ot R42 DIZZINESS AND GIDDINESS 04/08/2018 GELLENDER DO, EDSON Salazar Ot R59.0 LOCALIZED ENLARGED LYMPH NODES 04/08/2018 GELLENDER DO, EDSON Salazar Ot R63.4 ABNORMAL WEIGHT LOSS 04/08/2018 GELLENDER DO, EDSON Salazar Ot Z79.02 TEMPORARY OFFICE ASSISTANT (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 ANTITHROMBOTI 04/08/2018 GELLENDER DO, EDSON Salazar Ot Z79.82 ALF (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 ASPIRIN 04/08/2018 GELLENDER DO, EDSON Salazar Ot Z86.73 PRSNL HX OF TIA (TIA), AND CEREB INFRC W 04/08/2018 GELLENDER DO, EDSON Salazar Ot Z92.21 PERSONAL HISTORY OF ANTINEOPLASTIC CHEMO 04/09/2018 GELLENDER DO, EDSON Salazar Ot C85.90 NON-HODGKIN LYMPHOMA, UNSPECIFIED, UNSPE 04/09/2018 GELLENDER DO, EDSON Salazar Ot E78.00 PURE HYPERCHOLESTEROLEMIA, UNSPECIFIED 04/09/2018 GELLENDER DO, EDSON Salazar Ot F02.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 CLASSD ELSWHR W 04/09/2018 GELLENDER DO, EDSON Salazar Ot G30.9 ALZHEIMER'S DISEASE, UNSPECIFIED 04/09/2018 GELLENDER DO, EDSON Salazar Ot J18.9 PNEUMONIA, UNSPECIFIED ORGANISM 04/09/2018 GELLENDER DO, EDSON Salazar Ot J90 PLEURAL EFFUSION, NOT ELSEWHERE CLASSIFI 04/09/2018 GELLENDER DO, EDSON Salazar Ot J98.19 OTHER PULMONARY COLLAPSE 04/09/2018 GELLENDER DO, EDSON Salazar Ot R42 DIZZINESS AND GIDDINESS 04/09/2018 GELLENDER DO, EDSON Salazar Ot R59.0 LOCALIZED ENLARGED LYMPH NODES 04/09/2018 GELLENDER DO, EDSON Salazar Ot R64 CACHEXIA 04/09/2018 GELLENDER DO, EDSON Salazar Ot Z79.02 TEMPORARY OFFICE ASSISTANT (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 ANTITHROMBOTI 04/09/2018 GELLENDER DO, EDSON Salazar Ot Z79.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 OFFICE ASSISTANT (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 ASPIRIN 04/09/2018 GELLENDER DO, EDSON Salazar Ot Z86.73 PRSNL HX OF TIA (TIA), AND CEREB INFRC W 04/09/2018 GELLENDER DO, EDSON Salazar Ot Z92.21 PERSONAL HISTORY OF ANTINEOPLASTIC CHEMO 04/09/2018 GELLENDER DO, EDSON Salazar Ot E78.00 PURE HYPERCHOLESTEROLEMIA, UNSPECIFIED 04/09/2018 GELLENDER DO, EDSON Salazar Ot F02.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 CLASSD ELSWHR W 04/09/2018 GELLENDER DO, EDSON Salazar Ot G30.9 ALZHEIMER'S DISEASE, UNSPECIFIED 04/09/2018 [facility], EDSON Salazar Ot I10 ESSENTIAL (PRIMARY) HYPERTENSION 04/09/2018 [facility], EDSON Salazar Ot J18.9 PNEUMONIA, UNSPECIFIED ORGANISM 04/09/2018 [facility], EDSON Salazar Ot J90 PLEURAL EFFUSION, NOT ELSEWHERE CLASSIFI 04/09/2018 [facility], EDSON Salazar Ot J98.19 OTHER PULMONARY COLLAPSE 04/09/2018 [facility], EDSON Salazar Ot R42 DIZZINESS AND GIDDINESS 04/09/2018 [facility], EDSON Salazar Ot R59.0 LOCALIZED ENLARGED LYMPH NODES 04/09/2018 [facility], EDSON Salazar Ot R64 CACHEXIA 04/09/2018 [facility], EDSON Marie Ot Z79.02 TEMPORARY OFFICE ASSISTANT (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 ANTITHROMBOTI 04/09/2018 [facility], EDSON Salazar Ot Z79.82 ALF (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 ASPIRIN 04/09/2018 [facility], EDSON Salazar Ot Z85.72 PERSONAL HISTORY OF NON-HODGKIN LYMPHOMA 04/09/2018 [facility], EDSON Salazar Ot Z86.73 PRSNL HX OF TIA (TIA), AND CEREB INFRC W 04/09/2018 [facility], EDSON Salazar Ot Z92.21 PERSONAL HISTORY OF ANTINEOPLASTIC CHEMO 04/16/2018 Ot C85.90 NON-HODGKIN LYMPHOMA, UNSPECIFIED, UNSPE 04/16/2018 Ot F03.90 UNSPECIFIED DEMENTIA WITHOUT BEHAVIORAL 04/16/2018 Ot G47.36 SLEEP RELATED HYPOVENTILATION IN CONDITI 04/16/2018 Ot J98.11 ATELECTASIS 04/16/2018 Ot R63.4 ABNORMAL WEIGHT LOSS 04/16/2018 Ot Z79.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 OFFICE ASSISTANT ( 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 ASPIRIN 04/16/2018 Ot Z87.09 PERSONAL HISTORY OF OTHER DISEASES OF Procedures Code Description Performed By Performed On [id number] DRAINAGE OF RIGHT PLEURAL CAVITY, PERC A 04/03/2018 Results Test Result Range Complete blood count (CBC) with automated white blood cell (WBC) differential - 04/02/18 21:00 Blood leukocytes automated count (number/volume) 6.8 10*3/uL 4.3-11.0 Blood erythrocytes automated count (number/volume) 4.37 10*6/uL 4.35-5.85 Venous blood hemoglobin measurement (mass/volume) 14.0 g/dL 13.3-17.7 Blood hematocrit (volume fraction) 41 % 40-54 Automated erythrocyte mean corpuscular volume 94 [foz_us] 80-99 Automated erythrocyte mean corpuscular hemoglobin (mass per erythrocyte) 32 pg 25-34 Automated erythrocyte mean corpuscular hemoglobin concentration measurement ( mass/volume) 34 g/dL 32-36 Automated erythrocyte distribution width ratio 14.0 % 10.0-14.5 Automated blood platelet count (count/volume) 230 10*3/uL 130-400 Automated blood platelet mean volume measurement 10.0 [foz_us] 7.4-10.4 Automated blood neutrophils/100 leukocytes 74 % 42-75 Automated blood lymphocytes/100 leukocytes 12 % 12-44 Blood monocytes/100 leukocytes 11 % 0-12 Automated blood eosinophils/100 leukocytes 2 % 0-10 Automated blood basophils/100 leukocytes 0 % 0-10 Blood neutrophils automated count (number/volume) 5.1 10*3 1.8-7.8 Blood lymphocytes automated count (number/volume) 0.8 10*3 1.0-4.0 Blood monocytes automated count (number/volume) 0.8 10*3 0.0-1.0 Automated eosinophil count 0.1 10*3/uL 0.0-0.3 Automated blood basophil count (count/volume) 0.0 10*3/uL 0.0-0.1 PT panel in platelet poor plasma by coagulation assay - 04/02/18 21:00 Prothrombin time (PT) in platelet poor plasma by coagulation assay 14.0 s 12.2-14.7 INR in platelet poor plasma or blood by coagulation assay 1.1 0.8-1.4 Activated partial thromboplastin time (aPTT) in platelet poor plasma bycoagulation assay - 04/02/18 21:00 Activated partial thromboplastin time (aPTT) in platelet poor plasma bycoagulation assay 32 s 24-35 Comprehensive metabolic panel - 04/02/18 21:00 Serum or plasma sodium measurement (moles/volume) 138 mmol/L 135-145 Serum or plasma potassium measurement (moles/volume) 3.6 mmol/L 3.6-5.0 Serum or plasma chloride measurement (moles/volume) 104 mmol/L 98-107 Carbon dioxide 26 mmol/L 21-32 Serum or plasma anion gap determination (moles/volume) 8 mmol/L 5-14 Serum or plasma urea nitrogen measurement (mass/volume) 14 mg/dL 7-18 Serum or plasma creatinine measurement (mass/volume) 0.86 mg/dL 0.60-1.30 Serum or plasma urea nitrogen/creatinine mass ratio 16 NRG Serum or plasma creatinine measurement with calculation of estimated glomerular filtration rate > NRG Serum or plasma glucose measurement (mass/volume) 129 mg/dL 70-105 Serum or plasma calcium measurement (mass/volume) 9.3 mg/dL 8.5-10.1 Serum or plasma total bilirubin measurement (mass/volume) 1.2 mg/dL 0.1-1.0 Serum or plasma alkaline phosphatase measurement (enzymatic activity/volume) 79 U/L 40-136 Serum or plasma aspartate aminotransferase measurement (enzymatic activity/ volume) 32 U/L 5-34 Serum or plasma alanine aminotransferase measurement (enzymatic activity/volume ) 34 U/L 0-55 Serum or plasma protein measurement (mass/volume) 6.8 g/dL 6.4-8.2 Serum or plasma albumin measurement (mass/volume) 4.2 g/dL 3.2-4.5 Magnesium - 04/02/18 21:00 Magnesium 2.5 mg/dL 1.8-2.4 Serum or plasma creatine kinase measurement (enzymatic activity/volume) - 04/02 21:00 Serum or plasma creatine kinase measurement (enzymatic activity/volume) 85 U/L 30-200 Serum or plasma creatine kinase MB measurement (enzymatic activity/volume) - 21:00 Serum or plasma creatine kinase MB measurement (enzymatic activity/volume) 2.2 ng/mL <6.6 Serum or plasma troponin i.cardiac measurement (mass/volume) - 04/02/18 21:00 Serum or plasma troponin i.cardiac measurement (mass/volume) < ng/ mL <0.30 Myoglobin, serum - 04/02/18 21:00 Myoglobin, serum 66.4 ng/mL 10.0-92.0 Serum or plasma amylase measurement (enzymatic activity/volume) - 04/02/18 21: 00 Serum or plasma amylase measurement (enzymatic activity/volume) 65 U /L 25-125 Serum or plasma lithium measurement (moles/volume) - 04/02/18 21:00 BNP level 48.8 pg/mL <100.0 Lipase - 04/02/18 21:00 Lipase 15 U/L 8-78 Complete blood count (CBC) with automated white blood cell (WBC) differential - 04/03/18 05:27 Blood leukocytes automated count (number/volume) 9.1 10*3/uL 4.3-11.0 Blood erythrocytes automated count (number/volume) 4.09 10*6/uL 4.35-5.85 Venous blood hemoglobin measurement (mass/volume) 13.4 g/dL 13.3-17.7 Blood hematocrit (volume fraction) 39 % 40-54 Automated erythrocyte mean corpuscular volume 95 [foz_us] 80-99 Automated erythrocyte mean corpuscular hemoglobin (mass per erythrocyte) 33 pg 25-34 Automated erythrocyte mean corpuscular hemoglobin concentration measurement ( mass/volume) 35 g/dL 32-36 Automated erythrocyte distribution width ratio 13.6 % 10.0-14.5 Automated blood platelet count (count/volume) 193 10*3/uL 130-400 Automated blood platelet mean volume measurement 10.6 [foz_us] 7.4-10.4 Automated blood neutrophils/100 leukocytes 85 % 42-75 Automated blood lymphocytes/100 leukocytes 6 % 12-44 Blood monocytes/100 leukocytes 9 % 0-12 Automated blood eosinophils/100 leukocytes 0 % 0-10 Automated blood basophils/100 leukocytes 0 % 0-10 Blood neutrophils automated count (number/volume) 7.7 10*3 1.8-7.8 Blood lymphocytes automated count (number/volume) 0.6 10*3 1.0-4.0 Blood monocytes automated count (number/volume) 0.8 10*3 0.0-1.0 Automated eosinophil count 0.0 10*3/uL 0.0-0.3 Automated blood basophil count (count/volume) 0.0 10*3/uL 0.0-0.1 Comprehensive metabolic panel - 04/03/18 05:27 Serum or plasma sodium measurement (moles/volume) 137 mmol/L 135-145 Serum or plasma potassium measurement (moles/volume) 4.0 mmol/L 3.6-5.0 Serum or plasma chloride measurement (moles/volume) 103 mmol/L 98-107 Carbon dioxide 25 mmol/L 21-32 Serum or plasma anion gap determination (moles/volume) 9 mmol/L 5-14 Serum or plasma urea nitrogen measurement (mass/volume) 13 mg/dL 7-18 Serum or plasma creatinine measurement (mass/volume) 0.81 mg/dL 0.60-1.30 Serum or plasma urea nitrogen/creatinine mass ratio 16 NRG Serum or plasma creatinine measurement with calculation of estimated glomerular filtration rate > NRG Serum or plasma glucose measurement (mass/volume) 111 mg/dL 70-105 Serum or plasma calcium measurement (mass/volume) 8.9 mg/dL 8.5-10.1 Serum or plasma total bilirubin measurement (mass/volume) 0.9 mg/dL 0.1-1.0 Serum or plasma alkaline phosphatase measurement (enzymatic activity/volume) 77 U/L 40-136 Serum or plasma aspartate aminotransferase measurement (enzymatic activity/ volume) 31 U/L 5-34 Serum or plasma alanine aminotransferase measurement (enzymatic activity/volume ) 36 U/L 0-55 Serum or plasma protein measurement (mass/volume) 6.1 g/dL 6.4-8.2 Serum or plasma albumin measurement (mass/volume) 3.8 g/dL 3.2-4.5 Lactate dehydrogenase 1 [enzymatic activity/volume] in serum or plasma - 05:27 Lactate dehydrogenase 1 [enzymatic activity/volume] in serum or plasma 169 U/L 125-220 Lipid 1996 panel - 04/03/18 05:27 Serum or plasma triglyceride measurement (mass/volume) 102 mg/dL <150 Serum or plasma cholesterol measurement (mass/volume) 119 mg/dL < 200 Serum or plasma cholesterol in HDL measurement (mass/volume) 30 mg/ dL 40-60 Cholesterol in LDL [mass/volume] in serum or plasma by direct assay 71 mg/dL 1-129 Serum or plasma cholesterol in VLDL measurement (mass/volume) 20 mg/ dL 5-40 Body fluid cell count - 04/03/18 10:20 Specimen source identification of body fluid PLEURAL NRG Evaluation of color of body fluid YELLOW NRG Determination of appearance of body fluid CLEAR NRG Body fluid leukocytes count (number/volume) 32 /uL NRG Body fluid erythrocytes count (number/volume) 10 /uL NRG Manual body fluid polymorphonuclear cells/100 leukocytes 8 % NRG Manual body fluid mononuclear cells/100 leukocytes 4 % NRG Manual body fluid lymphocytes/100 leukocytes 72 % NRG Other cells/100 leukocytes in body fluid by manual count 16 % NRG * PH of body fluid - 04/03/18 10:20 * PH of body fluid 7.7 NRG Glucose body fluid - 04/03/18 10:20 Glucose body fluid 55 mg/dL NRG Body fluid total protein measurement - 04/03/18 10:20 Body fluid total protein measurement 4.3 g/dL NRG * PH of body fluid - 04/03/18 10:20 * PH of body fluid 7.7 NRG Body fluid/serum or plasma lactate dehydrogenase (LDH) ratio - 04/03/18 10:20 Body fluid/serum or plasma lactate dehydrogenase (LDH) ratio 142 U/ L NRG Body fluid triglyceride measurement (mass/volume) - 04/03/18 10:20 Body fluid triglyceride measurement (mass/volume) 43 mg/dL NRG Gram stain microscopy - 04/03/18 10:20 GRAM STAIN RESULT NO BACTERIA OBSERVED NRG Bacterial body fluid culture - 04/03/18 10:20 Bacterial body fluid culture NG NRG Bacteria identification in isolate by anaerobe culture - 04/03/18 10:20 Bacteria identification in isolate by anaerobe culture NG NR Whole blood hemoglobin and hematocrit panel - 04/03/18 16:25 Venous blood hemoglobin measurement (mass/volume) 13.6 g/dL 13.3-17.7 Blood hematocrit (volume fraction) 39 % 40-54 Automated blood complete blood count (hemogram) panel - 04/04/18 05:58 Blood leukocytes automated count (number/volume) 7.5 10*3/uL 4.3-11.0 Blood erythrocytes automated count (number/volume) 4.01 10*6/uL 4.35-5.85 Venous blood hemoglobin measurement (mass/volume) 12.7 g/dL 13.3-17.7 Blood hematocrit (volume fraction) 38 % 40-54 Automated erythrocyte mean corpuscular volume 95 [foz_us] 80-99 Automated erythrocyte mean corpuscular hemoglobin (mass per erythrocyte) 32 pg 25-34 Automated erythrocyte mean corpuscular hemoglobin concentration measurement ( mass/volume) 34 g/dL 32-36 Automated erythrocyte distribution width ratio 13.7 % 10.0-14.5 Automated blood platelet count (count/volume) 198 10*3/uL 130-400 Automated blood platelet mean volume measurement 10.3 [foz_us] 7.4-10.4 Comprehensive metabolic panel - 04/04/18 05:58 Serum or plasma sodium measurement (moles/volume) 136 mmol/L 135-145 Serum or plasma potassium measurement (moles/volume) 4.0 mmol/L 3.6-5.0 Serum or plasma chloride measurement (moles/volume) 103 mmol/L 98-107 Carbon dioxide 26 mmol/L 21-32 Serum or plasma anion gap determination (moles/volume) 7 mmol/L 5-14 Serum or plasma urea nitrogen measurement (mass/volume) 11 mg/dL 7-18 Serum or plasma creatinine measurement (mass/volume) 0.77 mg/dL 0.60-1.30 Serum or plasma urea nitrogen/creatinine mass ratio 14 NRG Serum or plasma creatinine measurement with calculation of estimated glomerular filtration rate > NRG Serum or plasma glucose measurement (mass/volume) 104 mg/dL 70-105 Serum or plasma calcium measurement (mass/volume) 8.6 mg/dL 8.5-10.1 Serum or plasma total bilirubin measurement (mass/volume) 1.1 mg/dL 0.1-1.0 Serum or plasma alkaline phosphatase measurement (enzymatic activity/volume) 68 U/L 40-136 Serum or plasma aspartate aminotransferase measurement (enzymatic activity/ volume) 24 U/L 5-34 Serum or plasma alanine aminotransferase measurement (enzymatic activity/volume ) 24 U/L 0-55 Serum or plasma protein measurement (mass/volume) 5.1 g/dL 6.4-8.2 Serum or plasma albumin measurement (mass/volume) 3.3 g/dL 3.2-4.5 Capillary blood glucose measurement by glucometer (mass/volume) - 04/05/18 05: 46 Capillary blood glucose measurement by glucometer (mass/volume) 96 mg/dL 70-110 Automated blood complete blood count (hemogram) panel - 04/05/18 06:50 Blood leukocytes automated count (number/volume) 7.1 10*3/uL 4.3-11.0 Blood erythrocytes automated count (number/volume) 3.98 10*6/uL 4.35-5.85 Venous blood hemoglobin measurement (mass/volume) 13.1 g/dL 13.3-17.7 Blood hematocrit (volume fraction) 38 % 40-54 Automated erythrocyte mean corpuscular volume 94 [foz_us] 80-99 Automated erythrocyte mean corpuscular hemoglobin (mass per erythrocyte) 33 pg 25-34 Automated erythrocyte mean corpuscular hemoglobin concentration measurement ( mass/volume) 35 g/dL 32-36 Automated erythrocyte distribution width ratio 13.4 % 10.0-14.5 Automated blood platelet count (count/volume) 181 10*3/uL 130-400 Automated blood platelet mean volume measurement 10.3 [foz_us] 7.4-10.4 Comprehensive metabolic panel - 04/05/18 06:50 Serum or plasma sodium measurement (moles/volume) 134 mmol/L 135-145 Serum or plasma potassium measurement (moles/volume) 4.1 mmol/L 3.6-5.0 Serum or plasma chloride measurement (moles/volume) 101 mmol/L 98-107 Carbon dioxide 26 mmol/L 21-32 Serum or plasma anion gap determination (moles/volume) 7 mmol/L 5-14 Serum or plasma urea nitrogen measurement (mass/volume) 7 mg/dL 7-18 Serum or plasma creatinine measurement (mass/volume) 0.76 mg/dL 0.60-1.30 Serum or plasma urea nitrogen/creatinine mass ratio 9 NRG Serum or plasma creatinine measurement with calculation of estimated glomerular filtration rate > NRG Serum or plasma glucose measurement (mass/volume) 101 mg/dL 70-105 Serum or plasma calcium measurement (mass/volume) 8.7 mg/dL 8.5-10.1 Serum or plasma total bilirubin measurement (mass/volume) 1.3 mg/dL 0.1-1.0 Serum or plasma alkaline phosphatase measurement (enzymatic activity/volume) 64 U/L 40-136 Serum or plasma aspartate aminotransferase measurement (enzymatic activity/ volume) 21 U/L 5-34 Serum or plasma alanine aminotransferase measurement (enzymatic activity/volume ) 21 U/L 0-55 Serum or plasma protein measurement (mass/volume) 5.0 g/dL 6.4-8.2 Serum or plasma albumin measurement (mass/volume) 3.5 g/dL 3.2-4.5 Complete blood count (CBC) with automated white blood cell (WBC) differential - 04/07/18 05:17 Blood leukocytes automated count (number/volume) 7.4 10*3/uL 4.3-11.0 Blood erythrocytes automated count (number/volume) 4.26 10*6/uL 4.35-5.85 Venous blood hemoglobin measurement (mass/volume) 14.0 g/dL 13.3-17.7 Blood hematocrit (volume fraction) 40 % 40-54 Automated erythrocyte mean corpuscular volume 93 [foz_us] 80-99 Automated erythrocyte mean corpuscular hemoglobin (mass per erythrocyte) 33 pg 25-34 Automated erythrocyte mean corpuscular hemoglobin concentration measurement ( mass/volume) 35 g/dL 32-36 Automated erythrocyte distribution width ratio 13.3 % 10.0-14.5 Automated blood platelet count (count/volume) 204 10*3/uL 130-400 Automated blood platelet mean volume measurement 10.5 [foz_us] 7.4-10.4 Automated blood neutrophils/100 leukocytes 80 % 42-75 Automated blood lymphocytes/100 leukocytes 8 % 12-44 Blood monocytes/100 leukocytes 10 % 0-12 Automated blood eosinophils/100 leukocytes 2 % 0-10 Automated blood basophils/100 leukocytes 0 % 0-10 Blood neutrophils automated count (number/volume) 5.9 10*3 1.8-7.8 Blood lymphocytes automated count (number/volume) 0.6 10*3 1.0-4.0 Blood monocytes automated count (number/volume) 0.7 10*3 0.0-1.0 Automated eosinophil count 0.2 10*3/uL 0.0-0.3 Automated blood basophil count (count/volume) 0.0 10*3/uL 0.0-0.1 Comprehensive metabolic panel - 04/07/18 05:17 Serum or plasma sodium measurement (moles/volume) 135 mmol/L 135-145 Serum or plasma potassium measurement (moles/volume) 3.5 mmol/L 3.6-5.0 Serum or plasma chloride measurement (moles/volume) 102 mmol/L 98-107 Carbon dioxide 22 mmol/L 21-32 Serum or plasma anion gap determination (moles/volume) 11 mmol/L 5-14 Serum or plasma urea nitrogen measurement (mass/volume) 5 mg/dL 7-18 Serum or plasma creatinine measurement (mass/volume) 0.69 mg/dL 0.60-1.30 Serum or plasma urea nitrogen/creatinine mass ratio 7 NRG Serum or plasma creatinine measurement with calculation of estimated glomerular filtration rate > NRG Serum or plasma glucose measurement (mass/volume) 101 mg/dL 70-105 Serum or plasma calcium measurement (mass/volume) 9.0 mg/dL 8.5-10.1 Serum or plasma total bilirubin measurement (mass/volume) 0.9 mg/dL 0.1-1.0 Serum or plasma alkaline phosphatase measurement (enzymatic activity/volume) 72 U/L 40-136 Serum or plasma aspartate aminotransferase measurement (enzymatic activity/ volume) 39 U/L 5-34 Serum or plasma alanine aminotransferase measurement (enzymatic activity/volume ) 37 U/L 0-55 Serum or plasma protein measurement (mass/volume) 5.7 g/dL 6.4-8.2 Serum or plasma albumin measurement (mass/volume) 3.5 g/dL 3.2-4.5 Complete blood count (CBC) with automated white blood cell (WBC) differential - 04/08/18 05:24 Blood leukocytes automated count (number/volume) 6.7 10*3/uL 4.3-11.0 Blood erythrocytes automated count (number/volume) 4.15 10*6/uL 4.35-5.85 Venous blood hemoglobin measurement (mass/volume) 13.2 g/dL 13.3-17.7 Blood hematocrit (volume fraction) 39 % 40-54 Automated erythrocyte mean corpuscular volume 93 [foz_us] 80-99 Automated erythrocyte mean corpuscular hemoglobin (mass per erythrocyte) 32 pg 25-34 Automated erythrocyte mean corpuscular hemoglobin concentration measurement ( mass/volume) 34 g/dL 32-36 Automated erythrocyte distribution width ratio 13.5 % 10.0-14.5 Automated blood platelet count (count/volume) 220 10*3/uL 130-400 Automated blood platelet mean volume measurement 10.1 [foz_us] 7.4-10.4 Automated blood neutrophils/100 leukocytes 73 % 42-75 Automated blood lymphocytes/100 leukocytes 12 % 12-44 Blood monocytes/100 leukocytes 11 % 0-12 Automated blood eosinophils/100 leukocytes 3 % 0-10 Automated blood basophils/100 leukocytes 0 % 0-10 Blood neutrophils automated count (number/volume) 4.9 10*3 1.8-7.8 Blood lymphocytes automated count (number/volume) 0.8 10*3 1.0-4.0 Blood monocytes automated count (number/volume) 0.7 10*3 0.0-1.0 Automated eosinophil count 0.2 10*3/uL 0.0-0.3 Automated blood basophil count (count/volume) 0.0 10*3/uL 0.0-0.1 Comprehensive metabolic panel - 04/08/18 05:24 Serum or plasma sodium measurement (moles/volume) 135 mmol/L 135-145 Serum or plasma potassium measurement (moles/volume) 3.7 mmol/L 3.6-5.0 Serum or plasma chloride measurement (moles/volume) 104 mmol/L 98-107 Carbon dioxide 23 mmol/L 21-32 Serum or plasma anion gap determination (moles/volume) 8 mmol/L 5-14 Serum or plasma urea nitrogen measurement (mass/volume) 7 mg/dL 7-18 Serum or plasma creatinine measurement (mass/volume) 0.69 mg/dL 0.60-1.30 Serum or plasma urea nitrogen/creatinine mass ratio 10 NRG Serum or plasma creatinine measurement with calculation of estimated glomerular filtration rate > NRG Serum or plasma glucose measurement (mass/volume) 91 mg/dL 70-105 Serum or plasma calcium measurement (mass/volume) 9.0 mg/dL 8.5-10.1 Serum or plasma total bilirubin measurement (mass/volume) 1.1 mg/dL 0.1-1.0 Serum or plasma alkaline phosphatase measurement (enzymatic activity/volume) 72 U/L 40-136 Serum or plasma aspartate aminotransferase measurement (enzymatic activity/ volume) 29 U/L 5-34 Serum or plasma alanine aminotransferase measurement (enzymatic activity/volume ) 30 U/L 0-55 Serum or plasma protein measurement (mass/volume) 5.6 g/dL 6.4-8.2 Serum or plasma albumin measurement (mass/volume) 3.4 g/dL 3.2-4.5 Complete urinalysis with reflex to culture - 04/09/18 10:10 Urine color determination YELLOW NRG Urine clarity determination CLEAR NRG Urine pH measurement by test strip 6.5 5-9 Specific gravity of urine by test strip 1.015 1.016- 1.022 Urine protein assay by test strip, semi-quantitative NEGATIVE NEGATIVE Urine glucose detection by automated test strip NEGATIVE NEGATIVE Erythrocytes detection in urine sediment by light microscopy NEGATIVE NEGATIVE Urine ketones detection by automated test strip NEGATIVE NEGATIVE Urine nitrite detection by test strip NEGATIVE NEGATIVE Urine total bilirubin detection by test strip NEGATIVE NEGATIVE Urine urobilinogen measurement by automated test strip (mass/volume) NORMAL NORMAL Urine leukocyte esterase detection by dipstick NEGATIVE NEGATIVE Automated urine sediment erythrocyte count by microscopy (number/high power field) NONE NRG Automated urine sediment leukocyte count by microscopy (number/high power field ) NONE NRG Bacteria detection in urine sediment by light microscopy NEGATIVE NRG Squamous epithelial cells detection in urine sediment by light microscopy NONE NRG Crystals detection in urine sediment by light microscopy NONE NRG Casts detection in urine sediment by light microscopy NONE NRG Mucus detection in urine sediment by light microscopy NEGATIVE NRG Complete urinalysis with reflex to culture NO NRG Sputum Gram stain - 04/16/18 08:00 Sputum Gram stain Mixed Bacterial Carri NRG Sputum Gram stain - 04/16/18 08:00 Sputum Gram stain Source is Bronch Washing, bilateral NRG Bacteria identification in bronchial specimen by aerobe culture - 04/16/18 08: 00 Bacteria identification in bronchial specimen by aerobe culture NORMAL NRG Bacteria identification in bronchial specimen by aerobe culture - 04/16/18 08: 00 Bacteria identification in bronchial specimen by aerobe culture NORMAL NRG Mycobacterium species detection by organism specific culture - 04/16/18 08:00 Mycobacterium species detection by organism specific culture - 04/16/18 08:00 Fungus culture - 04/16/18 08:00 Fungus culture NG NRG Fungus culture - 04/16/18 08:00 QUANTITY OF GROWTH . NRG Fungus culture SEE COMMEN NRG Complete blood count (CBC) with automated white blood cell (WBC) differential - 06/07/18 19:25 Blood leukocytes automated count (number/volume) 9.1 10*3/uL 4.3-11.0 Blood erythrocytes automated count (number/volume) 4.35 10*6/uL 4.35-5.85 Venous blood hemoglobin measurement (mass/volume) 14.0 g/dL 13.3-17.7 Blood hematocrit (volume fraction) 42 % 40-54 Automated erythrocyte mean corpuscular volume 96 [foz_us] 80-99 Automated erythrocyte mean corpuscular hemoglobin (mass per erythrocyte) 32 pg 25-34 Automated erythrocyte mean corpuscular hemoglobin concentration measurement ( mass/volume) 34 g/dL 32-36 Automated erythrocyte distribution width ratio 13.9 % 10.0-14.5 Automated blood platelet count (count/volume) 248 10*3/uL 130-400 Automated blood platelet mean volume measurement 9.9 [foz_us] 7.4-10.4 Automated blood neutrophils/100 leukocytes 81 % 42-75 Automated blood lymphocytes/100 leukocytes 9 % 12-44 Blood monocytes/100 leukocytes 9 % 0-12 Automated blood eosinophils/100 leukocytes 1 % 0-10 Automated blood basophils/100 leukocytes 0 % 0-10 Blood neutrophils automated count (number/volume) 7.4 10*3 1.8-7.8 Blood lymphocytes automated count (number/volume) 0.8 10*3 1.0-4.0 Blood monocytes automated count (number/volume) 0.8 10*3 0.0-1.0 Automated eosinophil count 0.1 10*3/uL 0.0-0.3 Automated blood basophil count (count/volume) 0.0 10*3/uL 0.0-0.1 PT panel in platelet poor plasma by coagulation assay - 06/07/18 19:25 Prothrombin time (PT) in platelet poor plasma by coagulation assay 13.6 s 12.2-14.7 INR in platelet poor plasma or blood by coagulation assay 1.0 0.8-1.4 Activated partial thromboplastin time (aPTT) in platelet poor plasma bycoagulation assay - 06/07/18 19:25 Activated partial thromboplastin time (aPTT) in platelet poor plasma bycoagulation assay 32 s 24-35 Comprehensive metabolic panel - 06/07/18 19:25 Serum or plasma sodium measurement (moles/volume) 134 mmol/L 135-145 Serum or plasma potassium measurement (moles/volume) 4.4 mmol/L 3.6-5.0 Serum or plasma chloride measurement (moles/volume) 98 mmol/L 98-107 Carbon dioxide 23 mmol/L 21-32 Serum or plasma anion gap determination (moles/volume) 13 mmol/L 5-14 Serum or plasma urea nitrogen measurement (mass/volume) 14 mg/dL 7-18 Serum or plasma creatinine measurement (mass/volume) 0.86 mg/dL 0.60-1.30 Serum or plasma urea nitrogen/creatinine mass ratio 16 NRG Serum or plasma creatinine measurement with calculation of estimated glomerular filtration rate > NRG Serum or plasma glucose measurement (mass/volume) 111 mg/dL 70-105 Serum or plasma calcium measurement (mass/volume) 9.7 mg/dL 8.5-10.1 Serum or plasma total bilirubin measurement (mass/volume) 1.2 mg/dL 0.1-1.0 Serum or plasma alkaline phosphatase measurement (enzymatic activity/volume) 93 U/L 40-136 Serum or plasma aspartate aminotransferase measurement (enzymatic activity/ volume) 42 U/L 5-34 Serum or plasma alanine aminotransferase measurement (enzymatic activity/volume ) 51 U/L 0-55 Serum or plasma protein measurement (mass/volume) 7.4 g/dL 6.4-8.2 Serum or plasma albumin measurement (mass/volume) 4.4 g/dL 3.2-4.5 CALCIUM CORRECTED 9.4 mg/dL 8.5-10.1 Magnesium - 06/07/18 19:25 Magnesium 2.3 mg/dL 1.8-2.4 Serum or plasma troponin i.cardiac measurement (mass/volume) - 06/07/18 19:25 Serum or plasma troponin i.cardiac measurement (mass/volume) < ng/ mL <0.30 Myoglobin, serum - 06/07/18 19:25 Myoglobin, serum 71.4 ng/mL 10.0-92.0 Serum or plasma lithium measurement (moles/volume) - 06/07/18 19:25 BNP level 57.1 pg/mL <100.0 Serum or plasma amylase measurement (enzymatic activity/volume) - 06/07/18 19: 25 Serum or plasma amylase measurement (enzymatic activity/volume) 87 U /L 25-125 Lipase - 06/07/18 19:25 Lipase 30 U/L 8-78 Encounters ACCT No. Visit Date/Time Discharge Status Pt. Type Provider Facility Loc./Unit Complaint [id number] 09/18/2012 15:25:05 RECURRING MaybIJuan José 05/26/2015 21:28:29 ACT Document Registration [id number] 08/29/2015 09:14:00 08/29/2015 11:00:00 DIS Emergency WAYNE PENA, STACIE Curran [facility] ER DIZZY/NAUSEA [id number] 05/31/2015 10:21:00 06/08/2015 12:40:00 DIS Inpatient SUAD GRIMALDO MD [facility] IRF DEBILITY [id number] 05/26/2015 21:55:00 05/31/2015 10:21:00 DIS Inpatient PEBBLES CALVO MD [facility] SURGICAL VERTIGO,DIZZY [id number] 06/07/2018 19:36:00 Document Registration [id number] 04/16/2018 07:20:00 Document Registration [id number] 04/02/2018 22:45:00 ACT Inpatient EDSON STRONG DO [facility] 4TH LARGE PLEURAL EFFUSION W COLLAPSE OF RT LUNG [id number] 06/18/2015 23:43:00 Document Registration [id number] 03/13/2012 16:58:00 Document Registration [id number] 10/23/2011 21:41:00 Document Registration [id number] 08/10/2011 13:13:00 Document Registration [id number] 02/06/2011 14:39:00 Document Registration
[2018-06-07 21:00] VITALS: BP 156/85
[2018-06-07] MEDS ORDERED: LORazepam INJ 2 MG/ML (ATIVAN) VIAL IVP PRN (22:00)
[2018-06-07] MEDS ORDERED: NITROGLYCERIN 2% OINT 1 GM UNIT DOSE PACKET TOP PRN (22:00)
[2018-06-07] MEDS ORDERED: ONDANSETRON 4 MG/2 ML (SDV) Z0FRAN IVP PRN (22:00)
[2018-06-07 22:51] VITALS: BP 118/66
[2018-06-08] VITALS (10 sets, daily range): BP systolic 113–202; BP diastolic 70–98
[2018-06-08] MEDS: NITROGLYCERIN 0.4 MG SL TABS BTL 25'S SL PRN (00:23)
[2018-06-08] MEDS: fentaNYL INJECTION 100 MCG/2 ML AMP IVP PRN ×3 (00:53→11:53)
[2018-06-08 06:10] LABS: BASOPHILS % (AUTO) 0 % (0-10); EOSINOPHILS # (AUTO) 0.1 10^3/uL (0.0-0.3); EOSINOPHILS % (AUTO) 2 % (0-10); HEMATOCRIT 37 % (40-54); HEMOGLOBIN 12.4 G/DL (13.3-17.7); LYMPHOCYTES # (AUTO) 0.9 X 10^3 (1.0-4.0); LYMPHOCYTES % (AUTO) 16 % (12-44); MEAN CORPUSCULAR HEMOGLOBIN 33 PG (25-34); MEAN CORPUSCULAR HGB CONC 34 G/DL (32-36); MEAN CORPUSCULAR VOLUME 96 FL (80-99); MEAN PLATELET VOLUME 10.4 FL (7.4-10.4); MONOCYTES # (AUTO) 0.6 X 10^3 (0.0-1.0); MONOCYTES % (AUTO) 10 % (0-12); NEUTROPHILS # (AUTO) 4.1 X 10^3 (1.8-7.8); NEUTROPHILS % (AUTO) 72 % (42-75); PLATELET COUNT 202 10^3/uL (130-400); RED BLOOD COUNT 3.82 10^6/uL (4.35-5.85); RED CELL DISTRIBUTION WIDTH 13.6 % (10.0-14.5); WHITE BLOOD COUNT 5.7 10^3/uL (4.3-11.0)
[2018-06-08 06:36] LABS: ALANINE AMINOTRANSFERASE 39 U/L (0-55); ALBUMIN 3.7 GM/DL (3.2-4.5); ALKALINE PHOSPHATASE 71 U/L (40-136); BILIRUBIN,TOTAL 1.3 MG/DL (0.1-1.0); BUN/CREATININE RATIO 16; CALCIUM 9.1 MG/DL (8.5-10.1); CARBON DIOXIDE 24 MMOL/L (21-32); CHLORIDE 100 MMOL/L (98-107); CREATININE SERUM 0.79 MG/DL (0.60-1.30); GFR ESTIMATED > 60; GLUCOSE 85 MG/DL (70-105); POTASSIUM 4.2 MMOL/L (3.6-5.0); SODIUM 134 MMOL/L (135-145); TOTAL PROTEIN 6.2 GM/DL (6.4-8.2)
[2018-06-08 06:38] LABS: CHOLESTEROL 95 MG/DL (< 200); HDL CHOLESTEROL 33 MG/DL (40-60); TRIGLYCERIDES 74 MG/DL (<150); VLDL CHOLESTEROL 15 MG/DL (5-40)
[2018-06-08] MEDS ORDERED: FLU QUADRIvalent (5+ YOA) 2018-2019 (AFLURIA) 0.5 ML IM ONE (07:30)
--- NOTE | 2018-06-08 12:16 | Consultation-Hospitalist ---
HPI History of Present Illness: HPI/Chief Complaint CC: Right sided chest pain due to pleural effusion likely malignant HPI: This is a 82yoWM clinic patient of Dr David's w/h/o lymphoma in the remote past who presented to the ER w/ right sided chest pain and was found to have a recurrent pleural effusion that was in need of thoracentesis. Patient is much improved today with pain meds. Currently patient is waiting for the procedure. Reviewed home meds. Source: patient, family, RN/MD Exam Limitations: no limitations Date Seen 06/08/18 Attending Physician Mario David DO PCP Mario David DO Referring Physician Date of Admission Jun 07, 2018 at 20:15 Home Medications & Allergies Home Medications Reviewed patient Home Medication Reconciliation performed by pharmacy medication reconciliations microbiological lab technician and/or nursing. Patients Allergies have been reviewed. Allergies Allergies Coded Allergies No Known Drug Allergies (Unverified10/23/11) Past Ckeiwug-Ozqwgc-Mccrnf Hx Past Med/Social Hx: Reviewed Nursing Past Med/Soc Hx, Reviewed and Corrections made Patient Social History Marrital Status: Employed/Student: retired Alcohol Use: Denies Use Recreational Drug Use: No Smoking Status: Never a Smoker 2nd Hand Smoke Exposure: No Physical Abuse Screen: No Sexual Abuse: No Recent Foreign Travel: No Contact w/other who traveled: No Recent Hopitalizations: No Recent Infectious Disease Expo: No Immunizations Up To Date Date of Pneumonia Vaccine: May 10, 2010 Date of Influenza Vaccine: May 11, 2015 Seasonal Allergies Seasonal Allergies: No Past Medical History Surgeries: Abdominal, Appendectomy Currently Using CPAP: No Currently Using BIPAP: No Cardiac: High Cholesterol, Hypertension Neurological: Dementia, Stroke Reproductive: No Sexually Transmitted Disease: No Cancer: Lymphoma Did You Recieve Any Treatments: Yes What Type of Treatment Did You: Chemotherapy History of Blood Disorders: No Family History Hypertension 19 FATHER Kidney disease 19 FATHER Hypertension Review of Systems Constitutional: see HPI, weakness EENTM: no symptoms reported Respiratory: dyspnea on exertion Cardiovascular: chest pain Gastrointestinal: no symptoms reported Genitourinary: no symptoms reported Musculoskeletal: no symptoms reported Skin: no symptoms reported Psychiatric/Neurological: No Symptoms Reported All Other Systems Reviewed Negative Unless Noted: Yes Physical Exam Physical Exam Vital Signs Vital Signs - First Documented 06/07/18 01:02 Pulse 57 Capillary Refill : Less Than 3 Seconds Height, Weight, BMI Height: 5'7.00" Weight: 169lbs. 1.0oz. 76.319061jq; 26.5 BMI Method:Stated General Appearance: WD/WN, Chronically ill, Mild Distress Neck: Full Range of Motion, Normal Inspection, Non Tender, Supple, Carotid Bruit Respiratory: Chest Non Tender, No Accessory Muscle Use, No Respiratory Distress , Crackles, Other (right sided diminished breath sounds) Cardiovascular: Regular Rate, Rhythm, No Edema, No Gallop, No JVD, No Murmur, Normal Peripheral Pulses Neurologic/Psychiatric: Alert, Oriented x3, No Motor/Sensory Deficits, Normal Mood/Affect Skin: Normal Color, Warm/Dry Results Results/Procedures Labs Laboratory Tests 06/07/18 19:25 06/08/18 05:09 Patient resulted labs reviewed. Assessment/Plan Assessment and Plan Assess & Plan/Chief Complaint Assessment: Right sided chest pain due to pleural effusion Lymphoma hx Plan: Pain control Thoracentesis Diagnosis/Problems Diagnosis/Problems (1) Right-sided chest pain Status: Acute (2) Pleural effusion due to another disorder Status: Acute (3) hx of pleural effusion; non-hodgkins lymphoma Status: Chronic (4) HTN (hypertension) Status: Chronic Qualifiers: Hypertension type: essential hypertension Qualified Codes: I10 - Essential (primary) hypertension (5) Dementia Status: Chronic Qualifiers: Dementia type: Alzheimer's disease Alzheimer's disease onset: unspecified onset Dementia behavioral disturbance: without behavioral disturbance Qualified Codes: G30.9 - Alzheimer's disease, unspecified; F02.80 - Dementia in other diseases classified elsewhere without behavioral disturbance Clinical Quality Measures DVT/VTE Risk/Contraindication: Risk Factor Score Per Nursin RFS Level Per Nursing on Admit: 2=Moderate JAKE GOLDSTEIN DO Jun 08, 2018 12:16
--- NOTE | 2018-06-08 13:36 | Diagnostic Imaging Report ---
EXAMINATION: Chest radiograph, portable AP view. DATE: June 08, 2018 at 1325 hours. INDICATION: 82-year-old male, status post right thoracentesis. COMPARISON: June 07, 2018. FINDINGS: There is interval improved aeration of the right lung. There is currently near complete opacification of the right lung. Essentially complete opacification previously. Heart size and mediastinal contours are grossly unchanged. There is no identified pneumothorax. IMPRESSION: 1. Interval improved aeration of the right lung with persistent near-complete opacification of the right hemithorax which may relate to effusion, infiltrate, and/or atelectasis. There is no pronounced volume loss. Dictated by: Dictated on workstation # [id number]
--- NOTE | 2018-06-08 13:50 | Progress Note-Post Operative ---
Post-Operative Progess Note Surgeon (s)/Nursing Program Director (s) Surgeon SUAD MANRIQUE DO Nursing Program Director: none Pre-Operative Diagnosis Right sided pleural Effusion, SOB, pleuritic chest pain Post-Operative Diagnosis Same Procedure & Operative Findings Date of Procedure 06/08/18 Procedure Performed/Findings Right sided Thoracentesis Anesthesia Type Local lidocaine Estimated Blood Loss Estimated blood loss (mL): scant Specimens/Packing Specimens Removed 2650 ml of a dark yellow fluid SUAD MANRIQUE DO Jun 08, 2018 13:50
--- NOTE | 2018-06-08 14:08 | History & Physical-Surgical ---
History of Present Illness History of Present Illness Reason for visit/HPI Pt is an 82 yo male who has been having CP and SOB for past couple of days and was finally convinced by his significant other to go to ER. He presented last night. He denied any fever or productive cough. He had a simliar episode back at end of March and had 2 1/2 liters of fluid taken off lung at that time. He was rating the pain as 7 out of 10 yesterday, he states "not too bad today". Date of Admission Jun 07, 2018 at 20:15 Date Seen by a Provider: Jun 08, 2018 Time Seen by a Provider: 13:03 I consulted on this patient on 06/08/18 14:05 Attending Physician Mario David DO Admitting Physician Mario David DO Consult Allergies and Home Medications Allergies Coded Allergies: No Known Drug Allergies (Unverified , 10/23/11) Home Medications Acetaminophen 500 Mg Tablet, 500 MG PO Q4H PRN for MILD PAIN Prescribed by: BOSTON BARGER on 05/31/15 0948 Aspirin 325 Mg Tablet, 325 MG PO DAILY, (Reported) Atorvastatin Calcium 10 Mg Tablet, 10 MG PO HS, (Reported) Clopidogrel Bisulfate 75 Mg Tablet, 75 MG PO DAILY Prescribed by: BOSTON BARGER on 05/31/15 0948 Donepezil HCl 10 Mg Tablet, 10 MG PO HS, (Reported) Escitalopram Oxalate 10 Mg Tablet, 10 MG PO DAILY, (Reported) Lisinopril 10 Mg Tablet, 10 MG PO DAILY Prescribed by: MELISSA BRANTLEY on 04/09/18 0944 Memantine HCl 14 Mg Cap.spr.24, 14 MG PO DAILY, (Reported) Pantoprazole Sodium 40 Mg Tablet.dr, 40 MG PO DAILY, (Reported) Vit A/C/E/Zinc/Co 1 Cap Capsule, 1 CAP PO BID, (Reported) Patient Home Medication List Home Medication List Reviewed: Yes Past [id number]-[id number] Hx Patient Social History Alcohol Use: Denies Use Recreational Drug Use: No Smoking Status: Never a Smoker 2nd Hand Smoke Exposure: No Recent Foreign Travel: No Contact w/Someone Who Travel: No Recent Infectious Disease Expo: No Recent Hopitalizations: No Physical Abuse Screen: No Sexual Abuse: No Immunizations Up To Date Date of Pneumonia Vaccine: May 10, 2010 Date of Influenza Vaccine: May 11, 2015 Seasonal Allergies Seasonal Allergies: No Surgeries History of Surgeries: Yes (RIGHT THORACENTESIS; HERNIA REPAIR) Surgeries: Abdominal, Appendectomy Respiratory History of Respiratory Disorde: Yes (LARGE RIGHT PLEURAL EFFUSION CAUSING COMPLETE COLLAPSE OF RIGHT LUNG 03/2018.) Cardiovascular History of Cardiac Disorders: Yes Cardiac Disorders: High Cholesterol, Hypertension Neurological History of Neurological Disord: Yes (CVA WITH RIGHT SIDE WEAKNESS 2014-- SYMPTOMS ESSENTIALLY RESOLVED. 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 Psychosocial History of Psychiatric Problem: No Integumentary History of Skin or Integumenta: No Blood Transfusions History of Blood Disorders: No Family Medical History Significant Family History: Hypertension Family Medial History: Hypertension 19 FATHER Kidney disease 19 FATHER Review of Systems Constitutional: No chills, No diaphoresis, No fever; weakness EENTM: No blurred vision, No mouth pain, No mouth swelling, No epistaxis Respiratory: No cough; dyspnea on exertion; No hemoptysis, No phlegm; short of breath Cardiovascular: chest pain; No palpitations Gastrointestinal: No abdominal pain, No constipation, No diarrhea, No jaundice Genitourinary: No dysuria, No frequency, No hematuria Musculoskeletal: back pain, joint pain, muscle pain, muscle stiffness Skin: No change in color, No change in hair/nails Psychiatric/Neurological: Denies Anxiety, Denies Depressed, Denies Seizure, Denies Tingling, Denies Tremors pt denies any history of abnormal bruising or bleeding Physical Exam Vital Signs Vital Signs - First Documented 06/07/18 01:02 Pulse 57 Capillary Refill : Less Than 3 Seconds Height, Weight, BMI Height: 5'7.00" Weight: 169lbs. 1.0oz. 76.901745zg; 26.5 BMI Method:Stated General Appearance: WD/WN, Mild Distress Eyes: Bilateral Eye PERRL, Bilateral Eye EOMI HEENT: Pharynx Normal, Moist Mucous Membranes Respiratory: No No Accessory Muscle Use, No No Respiratory Distress; Decreased Breath Sounds (basically none on right side and it is dull to percussion); No Respiratory Distress Cardiovascular: Regular Rate, Rhythm, No Murmur Gastrointestinal: Normal Bowel Sounds, No Organomegaly, Non Tender, Soft Back: No CVA Tenderness, No Vertebral Tenderness Extremity: Normal Capillary Refill, Normal Inspection, Normal Range of Motion, Non Tender, No Calf Tenderness, No Pedal Edema Neurologic/Psychiatric: Alert, Oriented x3, No Motor/Sensory Deficits, Normal Mood/Affect, school based therapist II-XII Norm as Tested Skin: Normal Color, Warm/Dry Lymphatic: No Adenopathy (neck, axilla or groin) Data Review Labs Laboratory Tests 06/07/18 19:25: White Blood Count 9.1, Red Blood Count 4.35, Hemoglobin 14.0, Hematocrit 42, Mean Corpuscular Volume 96, Mean Corpuscular Hemoglobin 32, Mean Corpuscular Hemoglobin Concent 34, Red Cell Distribution Width 13.9, Platelet Count 248, Mean Platelet Volume 9.9, Neutrophils (%) (Auto) 81H, Lymphocytes (%) (Auto) 9L , Monocytes (%) (Auto) 9, Eosinophils (%) (Auto) 1, Basophils (%) (Auto) 0, Neutrophils # (Auto) 7.4, Lymphocytes # (Auto) 0.8L, Monocytes # (Auto) 0.8, Eosinophils # (Auto) 0.1, Basophils # (Auto) 0.0, Prothrombin Time 13.6, INR Comment 1.0, Activated Partial Thromboplast Time 32, Sodium Level 134L, Potassium Level 4.4, Chloride Level 98, Carbon Dioxide Level 23, Anion Gap 13, Blood Urea Nitrogen 14, Creatinine 0.86, Estimat Glomerular Filtration Rate > 60 , BUN/Creatinine Ratio 16, Glucose Level 111H, Calcium Level 9.7, Corrected Calcium 9.4, Magnesium Level 2.3, Total Bilirubin 1.2H, Aspartate Amino Transf ( AST/SGOT) 42H, Alanine Aminotransferase (ALT/SGPT) 51, Alkaline Phosphatase 93, Myoglobin 71.4, Troponin I < 0.30, B-Type Natriuretic Peptide 57.1, Total Protein 7.4, Albumin 4.4, Amylase Level 87, Lipase 30 06/08/18 05:09: White Blood Count 5.7, Red Blood Count 3.82L, Hemoglobin 12.4L, Hematocrit 37L, Mean Corpuscular Volume 96, Mean Corpuscular Hemoglobin 33, Mean Corpuscular Hemoglobin Concent 34, Red Cell Distribution Width 13.6, Platelet Count 202, Mean Platelet Volume 10.4, Neutrophils (%) (Auto) 72, Lymphocytes (%) (Auto) 16 , Monocytes (%) (Auto) 10, Eosinophils (%) (Auto) 2, Basophils (%) (Auto) 0, Neutrophils # (Auto) 4.1, Lymphocytes # (Auto) 0.9L, Monocytes # (Auto) 0.6, Eosinophils # (Auto) 0.1, Basophils # (Auto) 0.0, Sodium Level 134L, Potassium Level 4.2, Chloride Level 100, Carbon Dioxide Level 24, Anion Gap 10, Blood Urea Nitrogen 13, Creatinine 0.79, Estimat Glomerular Filtration Rate > 60, BUN/ Creatinine Ratio 16, Glucose Level 85, Calcium Level 9.1, Corrected Calcium 9.3 , Total Bilirubin 1.3H, Aspartate Amino Transf (AST/SGOT) 33, Alanine Aminotransferase (ALT/SGPT) 39, Alkaline Phosphatase 71, Total Protein 6.2L, Albumin 3.7, Triglycerides Level 74, Cholesterol Level 95, LDL Cholesterol Direct 50, VLDL Cholesterol 15, HDL Cholesterol 33L 06/08/18 13:15: Assessment/Plan Assessment/Plan Admission Diagonsis Right Pleural Effusion Shortness of breath Pleuritic Chest pain Admission Status: Observation Assessment/Plan Right Pleural Effusion Shortness of breath Pleuritic Chest pain Plan is to do thoracentesis, repeat CXR, start diet and then send home if he tolerates all of this. Clinical Quality Measures DVT/VTE Risk/Contraindication: Risk Factor Score Per Nursin RFS Level Per Nursing on Admit: 2=Moderate SUAD MANRIQUE DO Jun 08, 2018 14:08
--- NOTE | 2018-06-08 14:19 | Discharge Inst-Surgical ---
Discharge Inst-Surgical Depart Medication/Instructions New, Converted or Re-Newed RX: Other Patient Instructions Follow up Appt: Make appointment to follow up with Dr. David and Oncology. Can follow up with me or Dr. Roland regarding possible pleurodesis. Instructions: May shower in 24 hours, no tub bath or soaking. Use incentive spirometer at home as directed. No Smoking Skin/Wound Care: May remove bandages. Replace with band-aid if necessary Symptoms to Report: Appetite Changes, Extremity Discoloration, Numbness/Tingling, Swelling Increased , Bleeding Excessive, Eyesight Changes, Pain Increased, Urine Color Change, Constipation(Persistent), Fever over 101 degree F, Pain/Pressure in chest, Urinating Difficulty, Cough Up/Vomit Blood, Heart Beat Irreg/Pounding, Pain/ Pressure in jaw, ramps in feet or legs, Lightheadedness, Pain/Pressure in shoulder, Diarrhea(Persistent), Memory Changes Suddenly, Questions/Concerns, Weight gain consecutive days, Dizziness/Fainting, Nausea/Vomiting, Shortness of Breath, Weight gain over 2 pounds If questions or concerns contact your physician Or seek help at emergency department. Activity Activity as Tolerated: Yes Driving Instructions: No Driving/Refer to Dr. Quevedo Discharge Diet: No Restrictions Diet After 24 Hours: Clear Liquid if Nauseous If Any Problems/Questions/Issu: Contact Your Physician, Go to Emergency Room Skin/Wound Care Infection Signs and Symptoms: Increased Redness, Foul Odor of Wound, Increased Drainage, Skin Itchy or Has a Rash, Increased Swelling, Temperature Above 101 F Bathing Instructions: SUAD Abebe DO Jun 08, 2018 14:18
--- NOTE | 2018-06-08 19:47 | OPERATIVE REPORT ---
DATE OF SERVICE: PREOPERATIVE DIAGNOSES: 1. Right pleural effusion. 2. Pleuritic chest pain. 3. Shortness of breath. POSTOPERATIVE DIAGNOSES: 1. Right pleural effusion. 2. Pleuritic chest pain. 3. Shortness of breath. PROCEDURE: Thoracentesis with ultrasound guidance. SURGEON: Cody Daniels DO. WASTEWATER ANALYST: None. ANESTHESIA: Local lidocaine. BLOOD LOSS: Scant. FLUIDS: None. SPECIMEN: Approximately 2650 mL of dark yellowish fluid from the lung. INDICATIONS FOR PROCEDURE: The patient is an 82-year-old male, who has a history of pleural effusion, had recently had a thoracentesis about a month or two ago, got off about 2.5 liters of fluid. Workup still in progress. He began having an increasing chest pain and shortness of breath, and when he came into the ER last night, he had a completely zeke out lung. FINDINGS: The patient had a dark yellowish fluid, removed about 2650 mL of this fluid. PROCEDURE NOTE: After informed consent was obtained, the patient was in his bed in the room. I had him lean over his tray table on a pillow. He was first checked with ultrasound, I picked the rib and could see the large amount of fluid. Then, I sterilely prepped and draped the area. Local lidocaine used to infiltrate in between the 2 ribs. I then made a stab incision with #11 blade and then slowly advanced the needle with the catheter over the needle with negative inspiration gently forward until we got a good flash of yellowish fluid and then easily advanced the catheter and removed the large needle hub. This was then hooked up to negative suction canisters, two 1 liter bottles, suctioned out dark yellow fluid. At this point then because we did not have any more suction canisters, I manually withdrew another 650 mL of this dark yellowish fluid. Towards the end, the last 50, then I could not get any more, it was hard to pullback. At this point, I then removed the catheter, held pressure all over the area and then taped the dressing down. The patient tolerated the procedure. He did start to cough a little bit at the end. A chest x-ray was obtained. No pneumothorax. There were some increased lung markings. There was still little bit of whiteout. There may still be some fluid in the pleural cavity. The patient was doing better. He is going to be started on diet and hopefully sent home today. Job ID: [id number] DocumentID: [id number] Dictated Date: 06/08/2018 14:23:04 Monotype Keyboard Operator Date: 06/08/2018 19:46:58 Dictated By: DO FAM HERNANDEZ
--- OUTSIDE RECORDS SUMMARY | 2018-06-10 09:55 | XMS REPORT | Continuity of Care Document ---
Demographics Preferred Language Unknown Marital Status Unknown Sikh Affiliation Unknown Race Unknown Ethnic Group Unknown Author Author [facility] Address Unknown Phone Unavailable Allergies Active Description Code Type Severity Reaction Onset Reported/Identified Relationship to Patient Clinical Status Yes No Known Drug Allergies [id number] Drug Allergy Unknown N/A 10/23/2011 Medications There [...] 05/28/2015 LUBNA PENA, PEBBLES R Ot 784.59 05/29/2015 LUBNA PENA, PEBBLES [...] Ot E78.00 PURE HYPERCHOLESTEROLEMIA, UNSPECIFIED 04/03/2018 GELLENDER DOEDSON Ot F02.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 CLASSD [...] WEIGHT LOSS 04/03/2018 GELLENDER DOEDSON Ot Z79.02 SHELTER (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 ANTITHROMBOTI 04/03/2018 GELLENDER DOEDSON Ot Z79.82 JUNIOR SOFTWARE DEVELOPER (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 ASPIRIN 04/03/2018 GELLENDER DO, [...] 04/04/2018 GELLENDER DO, EDSON Salazar Ot Z79.02 SHELTER (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 ANTITHROMBOTI 04/04/2018 GELLENDER DO, EDSON Salazar Ot Z79.82 JUNIOR SOFTWARE DEVELOPER (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 ASPIRIN 04/04/2018 GELLENDER DO, [...] 04/05/2018 GELLENDER DO, EDSON Salazar Ot Z79.02 SHELTER (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 ANTITHROMBOTI 04/05/2018 GELLENDER DO, EDSON Salazar Ot Z79.82 SHELTER (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 ASPIRIN 04/05/2018 GELLENDER DO, [...] J98.19 OTHER PULMONARY COLLAPSE 04/06/2018 GELLENDER DO, EDSON Salazar Ot R42 DIZZINESS AND GIDDINESS 04/06/2018 GELLENDER DO, EDSON Salazar Ot R59.0 LOCALIZED ENLARGED LYMPH NODES 04/06/2018 GELLENDER DO, EDSON Salazar Ot R63.4 ABNORMAL WEIGHT LOSS 04/06/2018 GELLENDER DO, EDSON Salazar Ot Z79.02 JUNIOR SOFTWARE 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 (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 ANTITHROMBOTI 04/06/2018 GELLENDER DO, EDSON Salazar Ot Z79.82 JUNIOR SOFTWARE DEVELOPER (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 ASPIRIN 04/06/2018 GELLENDER DO, [...] 04/07/2018 GELLENDER DO, EDSON Salazar Ot Z79.02 JUNIOR SOFTWARE DEVELOPER (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 ANTITHROMBOTI 04/07/2018 GELLENDER DO, EDSON Salazar Ot Z79.82 JUNIOR SOFTWARE DEVELOPER (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 ASPIRIN 04/07/2018 GELLENDER DO, [...] 04/08/2018 GELLENDER DO, EDSON Salazar Ot Z79.02 JUNIOR SOFTWARE DEVELOPER (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 ANTITHROMBOTI 04/08/2018 GELLENDER DO, EDSON Salazar Ot Z79.82 SHELTER (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 ASPIRIN 04/08/2018 GELLENDER DO, [...] 04/09/2018 GELLENDER DO, EDSON Salazar Ot Z79.02 JUNIOR SOFTWARE DEVELOPER (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 ANTITHROMBOTI 04/09/2018 GELLENDER DO, EDSON Salazar Ot Z79.82 JUNIOR SOFTWARE DEVELOPER (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 ASPIRIN 04/09/2018 GELLENDER DO, [...] Salazar Ot G30.9 ALZHEIMER'S DISEASE, UNSPECIFIED 04/09/[address] [facility], EDSON Salazar Ot I10 ESSENTIAL (PRIMARY) HYPERTENSION 04/09/[address] [facility], EDSON Salazar Ot J18.9 PNEUMONIA, UNSPECIFIED ORGANISM 04/09/[address] [facility], EDSON Salazar Ot J90 PLEURAL EFFUSION, NOT ELSEWHERE CLASSIFI 04/09/[address] [facility], EDSON Salazar Ot J98.19 OTHER PULMONARY COLLAPSE 04/09/[address] [facility], EDSON Salazar Ot R42 DIZZINESS AND GIDDINESS 04/09/[address] [facility], EDSON Salazar Ot R59.0 LOCALIZED ENLARGED LYMPH NODES 04/09/[address] [facility], EDSON Salazar Ot R64 CACHEXIA 04/09/[address] [facility], EDSON Marie Ot Z79.02 JUNIOR SOFTWARE DEVELOPER (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 ANTITHROMBOTI 04/09/[address] [facility], EDSON Salazar Ot Z79.82 SHELTER (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 ASPIRIN 04/09/[address] [facility], EDSON Salazar Ot Z85.72 PERSONAL HISTORY OF NON-HODGKIN LYMPHOMA 04/09/[address] [facility], EDSON Salazar Ot Z86.73 PRSNL HX OF TIA (TIA), AND CEREB INFRC W 04/09/[address] [facility], EDSON Salazar Ot Z92.21 PERSONAL HISTORY OF ANTINEOPLASTIC CHEMO 04/16/2018 Ot C85.90 NON-HODGKIN LYMPHOMA, UNSPECIFIED, UNSPE 04/16/2018 Ot F03.90 UNSPECIFIED DEMENTIA WITHOUT BEHAVIORAL 04/16/2018 Ot G47.36 SLEEP RELATED HYPOVENTILATION IN CONDITI 04/16/2018 Ot J98.11 ATELECTASIS 04/16/2018 Ot R63.4 ABNORMAL WEIGHT LOSS 04/16/2018 Ot Z79.82 JUNIOR SOFTWARE DEVELOPER ( 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 ASPIRIN 04/16/2018 Ot Z87.09 PERSONAL HISTORY OF OTHER DISEASES OF Procedures Code Description Performed By Performed On [id number] DRAINAGE OF RIGHT PLEURAL CAVITY, PERC A [...] - 06/07/18 19:25 Lipase 30 U/L 8-78 Complete blood count (CBC) with automated white blood cell (WBC) differential - 06/08/18 05:09 Blood leukocytes automated count (number/volume) 5.7 10*3/uL 4.3-11.0 Blood erythrocytes automated count (number/volume) 3.82 10*6/uL 4.35-5.85 Venous blood hemoglobin measurement (mass/volume) 12.4 g/dL 13.3-17.7 Blood hematocrit (volume fraction) 37 % 40-54 Automated erythrocyte mean corpuscular volume 96 [foz_us] 80-99 Automated erythrocyte mean corpuscular hemoglobin (mass per erythrocyte) 33 pg 25-34 Automated erythrocyte mean corpuscular hemoglobin concentration measurement ( mass/volume) 34 g/dL 32-36 Automated erythrocyte distribution width ratio 13.6 % 10.0-14.5 Automated blood platelet count (count/volume) 202 10*3/uL 130-400 Automated blood platelet mean volume measurement 10.4 [foz_us] 7.4-10.4 Automated blood neutrophils/100 leukocytes 72 % 42-75 Automated blood lymphocytes/100 leukocytes 16 % 12-44 Blood monocytes/100 leukocytes 10 % 0-12 Automated blood eosinophils/100 leukocytes 2 % 0-10 Automated blood basophils/100 leukocytes 0 % 0-10 Blood neutrophils automated count (number/volume) 4.1 10*3 1.8-7.8 Blood lymphocytes automated count (number/volume) 0.9 10*3 1.0-4.0 Blood monocytes automated count (number/volume) 0.6 10*3 0.0-1.0 Automated eosinophil count 0.1 10*3/uL 0.0-0.3 Automated blood basophil count (count/volume) 0.0 10*3/uL 0.0-0.1 Comprehensive metabolic panel - 06/08/18 05:09 Serum or plasma sodium measurement (moles/volume) 134 mmol/L 135-145 Serum or plasma potassium measurement (moles/volume) 4.2 mmol/L 3.6-5.0 Serum or plasma chloride measurement (moles/volume) 100 mmol/L 98-107 Carbon dioxide 24 mmol/L 21-32 Serum or plasma anion gap determination (moles/volume) 10 mmol/L 5-14 Serum or plasma urea nitrogen measurement (mass/volume) 13 mg/dL 7-18 Serum or plasma creatinine measurement (mass/volume) 0.79 mg/dL 0.60-1.30 Serum or plasma urea nitrogen/creatinine mass ratio 16 NRG Serum or plasma creatinine measurement with calculation of estimated glomerular filtration rate > NRG Serum or plasma glucose measurement (mass/volume) 85 mg/dL 70-105 Serum or plasma calcium measurement (mass/volume) 9.1 mg/dL 8.5-10.1 Serum or plasma total bilirubin measurement (mass/volume) 1.3 mg/dL 0.1-1.0 Serum or plasma alkaline phosphatase measurement (enzymatic activity/volume) 71 U/L 40-136 Serum or plasma aspartate aminotransferase measurement (enzymatic activity/ volume) 33 U/L 5-34 Serum or plasma alanine aminotransferase measurement (enzymatic activity/volume ) 39 U/L 0-55 Serum or plasma protein measurement (mass/volume) 6.2 g/dL 6.4-8.2 Serum or plasma albumin measurement (mass/volume) 3.7 g/dL 3.2-4.5 CALCIUM CORRECTED 9.3 mg/dL 8.5-10.1 Lipid 1996 panel - 06/08/18 05:09 Serum or plasma triglyceride measurement (mass/volume) 74 mg/dL <150 Serum or plasma cholesterol measurement (mass/volume) 95 mg/dL < 200 Serum or plasma cholesterol in HDL measurement (mass/volume) 33 mg/ dL 40-60 Cholesterol in LDL [mass/volume] in serum or plasma by direct assay 50 mg/dL 1-129 Serum or plasma cholesterol in VLDL measurement (mass/volume) 15 mg/ dL 5-40 Encounters ACCT No. Visit Date/Time Discharge Status Pt. Type Provider Facility Loc./Unit Complaint [id number] 09/18/2012 15:25:05 RECURRING [facility] FelipeZ 05/26/2015 21:28:29 ACT Document Registration [id number] 08/29/2015 09:14:00 08/29/2015 11:00:00 DIS Emergency WAYNE PENA, STACIE Curran [facility] ER DIZZY/NAUSEA [id number] 05/31/2015 10:21:00 06/08/2015 12:40:00 DIS Inpatient DILLAN PENA, SUAD Ruelas [facility] IRF DEBILITY [id number] 05/26/2015 21:55:00 05/31/2015 10:21:00 DIS Inpatient LUBNA PENA, PEBBLES R [facility] SURGICAL VERTIGO,DIZZY [id number] 06/07/2018 19:36:00 Document Registration [id number] 04/16/2018 07:20:00 Document Registration [id number] 04/02/2018 22:45:00 ACT Inpatient EDSON STRONG DO [facility] 4TH LARGE PLEURAL EFFUSION W COLLAPSE OF RT LUNG [id number] 06/18/2015 23:43:00 Document Registration [id number] 03/13/2012 16:58:00 Document Registration [id number] 10/23/2011 21:41:00 Document Registration [id number] 08/10/2011 13:13:00 Document Registration [id number] 02/06/2011 14:39:00 Document Registration
== END 2018-06-08 16:00 | disposition home or self-care (01) ==
LOC: EDUNIT# 19:13 → ER 19:14 → 4TH 20:15 → UNDOADMOB 20:15 → SDC 20:15 → UNDODISOB 06-08 16:00
PROVIDERS: ATTEND Surgery
DX: J90 Pleural effusion, not elsewhere classified (principal); R07.81 Pleurodynia; R06.02 Shortness of breath; E78.00 Pure hypercholesterolemia, unspecified; I10 Essential (primary) hypertension; C85.90 Non-Hodgkin lymphoma, unspecified, unspecified site; G30.9 Alzheimer's disease, unspecified; F02.80 Dementia in other diseases classified elsewhere, unspecified severity, without behavioral disturbance, psychotic disturbance, mood disturbance, and anxiety; Z86.73 Personal history of transient ischemic attack (TIA), and cerebral infarction without residual deficits; Z92.21 Personal history of antineoplastic chemotherapy
CPT/HCPCS: 36415; 71045; 80053; 80061; 82150; 83690; 83735; 83874; 83880; 84484; 85025; 85610; 85730; 93005; 93041

== ENCOUNTER → 2018-06-16 | Outpatient (CLI) | payer MEDICARE, OTHER ==
--- NOTE | 2018-06-16 09:29 | Diagnostic Imaging Report ---
INDICATION: RT PLEURAL EFFUSION. TECHNIQUE: 2 views of the chest. COMPARISON: 06/08/2018 FINDINGS: There is a large right pleural effusion, which appears decreased in size compared to the prior exam. The left lung appears clear. The cardiac silhouette is partially obscured but appear stable in size. No pneumothorax is seen. No acute osseous abnormality is seen. IMPRESSION: Large right pleural effusion, mildly decreased in size compared to the prior study. Dictated by: Dictated on workstation # [id number]
== END ==
LOC: RAD 09:02
PROVIDERS: ATTEND Family Medicine
DX: J90 Pleural effusion, not elsewhere classified (principal)
CPT/HCPCS: 71046

== ENCOUNTER → 2018-08-04 | Outpatient (CLI) | payer MEDICARE, OTHER ==
--- NOTE | 2018-08-04 14:11 | Diagnostic Imaging Report ---
INDICATION: Pleural effusion and atelectasis. TIME OF EXAMINATION: 02:19 p.m. COMPARISON: Correlation is made with prior study from 06/16/2018. FINDINGS: There is complete opacification of the right hemithorax. No aerated lung on today's study is seen. This likely owing to enlarging right pleural effusion. Left lung appears clear. No pneumothorax is seen. IMPRESSION: Development of complete opacification of the right hemithorax, likely owing to large pleural effusion. Dictated by: Dictated on workstation # [id number]
== END ==
LOC: RAD 13:45
PROVIDERS: ATTEND Nurse Practitioner Family
DX: R91.8 Other nonspecific abnormal finding of lung field (principal); J98.11 Atelectasis; F03.90 Unspecified dementia, unspecified severity, without behavioral disturbance, psychotic disturbance, mood disturbance, and anxiety; R63.4 Abnormal weight loss; G47.34 Idiopathic sleep related nonobstructive alveolar hypoventilation; C85.90 Non-Hodgkin lymphoma, unspecified, unspecified site; C34.90 Malignant neoplasm of unspecified part of unspecified bronchus or lung; Z87.09 Personal history of other diseases of the respiratory system
CPT/HCPCS: 71046

== ENCOUNTER → 2018-08-20 | Outpatient (CLI) | payer MEDICARE, OTHER ==
--- NOTE | 2018-08-20 14:48 | Diagnostic Imaging Report ---
EXAMINATION: PA and lateral chest at 02:22 p.m. INDICATION: Chest pain. FINDINGS: The prior exam of 08/04/2018 noted complete opacification of the right thorax by atelectasis/infiltrate and fluid. On this study, the right hemithorax remains opacified. The left lung is still generally clear and well aerated. The heart is stable in size. The mediastinum is not widened, but the tracheal air shadow remains deviated to the left. The osseous structures are intact. IMPRESSION: There is persistent opacification of the right hemithorax. When compared to the previous study, there has been no significant change. Dictated by: Dictated on workstation # [id number]
== END ==
LOC: RAD 13:49
PROVIDERS: ATTEND Family Medicine
DX: J90 Pleural effusion, not elsewhere classified (principal)
CPT/HCPCS: 71046

== ENCOUNTER → 2018-09-04 | Outpatient (CLI) | payer MEDICARE, OTHER ==
--- NOTE | 2018-09-04 15:09 | Diagnostic Imaging Report ---
INDICATION: Right pleural effusion. TIME OF EXAM: 2:56 PM COMPARISON: Correlation is made with prior study from 08/20/2018. FINDINGS: There continues to be complete opacification of the right hemithorax. Left lung remains fairly clear. No pneumothorax is seen. There continues to be some tracheal deviation to the left. IMPRESSION: No significant change in the appearance of the chest since the study from 08/20/2018 with continued complete opacification of right hemithorax. Dictated by: Dictated on workstation # [id number]
== END ==
LOC: RAD 14:20
PROVIDERS: ATTEND Family Medicine
DX: J90 Pleural effusion, not elsewhere classified (principal)
CPT/HCPCS: 71046

== ENCOUNTER 2018-09-22 11:36 | Inpatient (IN) | payer MEDICARE, OTHER ==
[~2018-09-22] VITALS: Ht 170.2 cm; Wt 76.7 kg
[2018-09-22 12:06] LABS: BASOPHILS % (AUTO) 0 % (0-10); EOSINOPHILS # (AUTO) 0.1 10^3/uL (0.0-0.3); EOSINOPHILS % (AUTO) 1 % (0-10); HEMATOCRIT 46 % (40-54); HEMOGLOBIN 15.3 G/DL (13.3-17.7); LYMPHOCYTES # (AUTO) 0.7 X 10^3 (1.0-4.0); LYMPHOCYTES % (AUTO) 8 % (12-44); MEAN CORPUSCULAR HEMOGLOBIN 32 PG (25-34); MEAN CORPUSCULAR HGB CONC 34 G/DL (32-36); MEAN CORPUSCULAR VOLUME 94 FL (80-99); MEAN PLATELET VOLUME 10.6 FL (7.4-10.4); MONOCYTES # (AUTO) 0.6 X 10^3 (0.0-1.0); MONOCYTES % (AUTO) 6 % (0-12); NEUTROPHILS # (AUTO) 7.6 X 10^3 (1.8-7.8); NEUTROPHILS % (AUTO) 85 % (42-75); PLATELET COUNT 289 10^3/uL (130-400); RED BLOOD COUNT 4.82 10^6/uL (4.35-5.85); RED CELL DISTRIBUTION WIDTH 14.3 % (10.0-14.5)
--- NOTE | 2018-09-22 12:10 | ED General ---
General Chief Complaint: Respiratory Problems Stated Complaint: SOB Source of Information: Patient Exam Limitations: No Limitations History of Present Illness Date Seen by Provider: Sep 22, 2018 Time Seen by Provider: 12:08 Initial Comments To ER per private vehicle from Dr. Strong's office with reports of shortness of breath, suspect dehydration, general malaise and weakness. He follows with Dr. Esquivel for recurrent right pleural effusion according to the . She states that he's had his "right lung drained" several times with temporary resolution of symptoms. Timing/Duration: Getting Worse, Intermittent Severity: Moderate Associated Systoms: Cough, Shortness of Air Allergies and Home Medications Allergies Coded Allergies: No Known Drug Allergies (Unverified , 10/23/11) Home Medications Acetaminophen 500 Mg Tablet, 500 MG PO Q4H PRN for MILD PAIN Prescribed by: BOSTON BARGER on 05/31/15 0948 Aspirin 325 Mg Tablet, 325 MG PO DAILY, (Reported) Atorvastatin Calcium 10 Mg Tablet, 10 MG PO HS, (Reported) Clopidogrel Bisulfate 75 Mg Tablet, 75 MG PO DAILY Prescribed by: BOSTON BARGER on 05/31/15 0948 Donepezil HCl 10 Mg Tablet, 10 MG PO HS, (Reported) Escitalopram Oxalate 10 Mg Tablet, 10 MG PO DAILY, (Reported) Lisinopril 10 Mg Tablet, 10 MG PO DAILY Prescribed by: MELISSA BRANTLEY on 04/09/18 0944 Memantine HCl 14 Mg Cap.spr.24, 14 MG PO DAILY, (Reported) Pantoprazole Sodium 40 Mg Tablet.dr, 40 MG PO DAILY, (Reported) Vit A/C/E/Zinc/Co 1 Cap Capsule, 1 CAP PO BID, (Reported) Patient Home Medication List Home Medication List Reviewed: Yes Review of Systems Review of Systems Constitutional: see HPI EENTM: see HPI Respiratory: see HPI, short of breath Cardiovascular: no symptoms reported Genitourinary: no symptoms reported Musculoskeletal: no symptoms reported Skin: no symptoms reported Psychiatric/Neurological: No Symptoms Reported Hematologic/Lymphatic: No Symptoms Reported Past Etrwcyt-Vnwkfg-Vufafl Hx Patient Social History 2nd Hand Smoke Exposure: No Recent Hopitalizations: No Immunizations Up To Date Date of Pneumonia Vaccine: May 10, 2010 Date of Influenza Vaccine: May 11, 2015 Seasonal Allergies Seasonal Allergies: No Past Medical History Surgeries: Yes (RIGHT THORACENTESIS; HERNIA REPAIR) Abdominal, Appendectomy Respiratory: Yes Currently Using CPAP: No Currently Using BIPAP: No Cardiac: Yes High Cholesterol, Hypertension Neurological: Yes (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 1.0oz. 76.110034ot; 26.5 BMI Method:Stated General Appearance: No Apparent Distress, WD/WN, Chronically ill Eyes: Bilateral Eye Normal Inspection, Bilateral Eye PERRL, Bilateral Eye EOMI HEENT: PERRL/EOMI Neck: Full Range of Motion Respiratory: No Accessory Muscle Use, No Respiratory Distress, Other ( essentially absent lung sounds on the right) Cardiovascular: Regular Rate, Rhythm, Normal Peripheral Pulses Gastrointestinal: Normal Bowel Sounds, Non Tender, Soft Extremity: Normal Capillary Refill, Normal Inspection Neurologic/Psychiatric: Alert, Normal Mood/Affect Skin: Normal Color, Warm/Dry Focused Exam Lactate Level 09/22/18 11:59: Lactic Acid Level 3.01*H Lactic Acid Level Laboratory Tests Test 09/22/18 11:59 Lactic Acid Level 3.01 MMOL/L (0.50-2.00) *H Progress/Results/Core Measures Suspected Sepsis SIRS Temperature: Pulse: Respiratory Rate: Laboratory Tests 09/22/18 11:59: White Blood Count 9.0 Blood Pressure / Mean: 09/22/18 11:59: Lactic Acid Level 3.01*H Laboratory Tests 09/22/18 11:59: Creatinine 0.88, Platelet Count 289, Total Bilirubin 1.9H Results/Orders Lab Results Laboratory Tests Test 09/22/18 11:59 Range/Units White Blood Count 9.0 4.3-11.0 10^3/uL Red Blood Count 4.82 4.35-5.85 10^6/uL Hemoglobin 15.3 13.3-17.7 G/DL Hematocrit 46 40-54 % Mean Corpuscular Volume 94 80-99 FL Mean Corpuscular Hemoglobin 32 25-34 PG Mean Corpuscular Hemoglobin Concent 34 32-36 G/DL Red Cell Distribution Width 14.3 10.0-14.5 % Platelet Count 289 130-400 10^3/uL Mean Platelet Volume 10.6 H 7.4-10.4 FL Neutrophils (%) (Auto) 85 H 42-75 % Lymphocytes (%) (Auto) 8 L 12-44 % Monocytes (%) (Auto) 6 0-12 % Eosinophils (%) (Auto) 1 0-10 % Basophils (%) (Auto) 0 0-10 % Neutrophils # (Auto) 7.6 1.8-7.8 X 10^3 Lymphocytes # (Auto) 0.7 L 1.0-4.0 X 10^3 Monocytes # (Auto) 0.6 0.0-1.0 X 10^3 Eosinophils # (Auto) 0.1 0.0-0.3 10^3/uL Basophils # (Auto) 0.0 0.0-0.1 10^3/uL Neutrophils % (Manual) 82 % Lymphocytes % (Manual) 3 % Monocytes % (Manual) 10 % Eosinophils % (Manual) 1 % Reactive Lymphocytes 4 % Crenated Cell MODERATE Sodium Level 137 135-145 MMOL/L Potassium Level 3.9 3.6-5.0 MMOL/L Chloride Level 98 98-107 MMOL/L Carbon Dioxide Level 20 L 21-32 MMOL/L Anion Gap 19 H 5-14 MMOL/L Blood Urea Nitrogen 20 H 7-18 MG/DL Creatinine 0.88 0.60-1.30 MG/DL Estimat Glomerular Filtration Rate > 60 BUN/Creatinine Ratio 23 Glucose Level 138 H 70-105 MG/DL Lactic Acid Level 3.01 *H 0.50-2.00 MMOL/L Calcium Level 10.2 H 8.5-10.1 MG/DL Corrected Calcium 10.1 8.5-10.1 MG/DL Total Bilirubin 1.9 H 0.1-1.0 MG/DL Aspartate Amino Transf (AST/SGOT) 27 5-34 U/L Alanine Aminotransferase (ALT/SGPT) 16 0-55 U/L Alkaline Phosphatase 87 40-136 U/L Troponin I < 0.028 <0.028 NG/ML B-Type Natriuretic Peptide 79.4 <100.0 PG/ML Total Protein 7.3 6.4-8.2 GM/DL Albumin 4.1 3.2-4.5 GM/DL My Orders Orders - NEHA CELESTE APRN Chest 1 View, Ap/Pa Only (09/22/18 11:40) Cbc With Automated Diff (09/22/18 11:40) BNP (09/22/18 11:40) Troponin I (09/22/18 11:40) Ekg Tracing (09/22/18 11:40) Iv Heplock-Insert (Order) (09/22/18 11:40) Oxygen-Administer (09/22/18 11:40) Comprehensive Metabolic Panel (09/22/18 11:40) Blood Culture (09/22/18 11:40) Lactic Acid Analyzer (09/22/18 11:40) Manual Differential (09/22/18 11:59) Ua Culture If Indicated (09/22/18 12:10) Vital Signs/I&O Capillary Refill : Diagnostic Imaging Diagonstic Imaging: Xray Plain Films/CT/US/NM/MRI: chest Comments NAME: PEBBLES BAIRD [facility] REC#: [id number] PT STATUS: REG ER : 1935 PHYSICIAN: NEHA CELESTE APRN ADMIT DATE: 09/22/18/ER Draft Date of Exam:09/22/18 CHEST 1 VIEW, AP/PA ONLY INDICATION: No lung sounds on the right side. TIME OF EXAM: 11:59 a.m. Correlation is made with prior study from 09/04/2018. There continues to be a complete opacification right hemithorax, similar to prior exam. This is suggestive of a large effusion. Left lung remains clear. No pneumothorax is seen. IMPRESSION: Continued complete opacification of right hemithorax, similar to examination dating back to 08/04/2018. Dictated on workstation # [id number] Dict: 09/22/18 1213 Trans: 09/22/186 [facility] [id number] Interpreted by: EDUARDO MATTA MD Electronically signed by: Departure Communication (Admissions) Time/Spoke to Admitting Phy: 12:[address] Strong. We'll admit, supplemental oxygen, consult Dr. Esquivel Impression Primary Impression: Recurrent right pleural effusion Additional Impressions: Dyspnea Dementia Disposition: ADMITTED INPATIENT Condition: Stable Admissions Decision to Admit Reason: Admit from ER (General) Decision to Admit/Date: Sep 22, 2018 Time/Decision to Admit Time: 12:10 Departure-Patient Inst. Referrals: EDSON STRONG DO (PCP/Family) Primary Care Physician NEHA CELESTE APRN Sep 22, 2018 12:10
--- NOTE | 2018-09-22 12:17 | Diagnostic Imaging Report ---
INDICATION: No lung sounds on the right side. TIME OF EXAM: 11:59 a.m. Correlation is made with prior study from 09/04/2018. There continues to be a complete opacification right hemithorax, similar to prior exam. This is suggestive of a large effusion. Left lung remains clear. No pneumothorax is seen. IMPRESSION: Continued complete opacification of right hemithorax, similar to examination dating back to 08/04/2018. Dictated by: Dictated on workstation # [id number]
[2018-09-22 12:27] LABS: ALANINE AMINOTRANSFERASE 16 U/L (0-55); ALBUMIN 4.1 GM/DL (3.2-4.5); ALKALINE PHOSPHATASE 87 U/L (40-136); BILIRUBIN,TOTAL 1.9 MG/DL (0.1-1.0); BUN/CREATININE RATIO 23; CALCIUM 10.2 MG/DL (8.5-10.1); CARBON DIOXIDE 20 MMOL/L (21-32); CHLORIDE 98 MMOL/L (98-107); CREATININE SERUM 0.88 MG/DL (0.60-1.30); CRENATED RBC MODERATE; EOSINOPHILS % (MANUAL) 1 %; GFR ESTIMATED > 60; GLUCOSE 138 MG/DL (70-105); LYMPHOCYTES % (MANUAL) 3 %; MONOCYTES % (MANUAL) 10 %; NEUTROPHILS % (MANUAL) 82 %; POTASSIUM 3.9 MMOL/L (3.6-5.0); REACTIVE LYMPHOCYTES 4 %; SODIUM 137 MMOL/L (135-145); TOTAL PROTEIN 7.3 GM/DL (6.4-8.2)
--- NOTE | 2018-09-22 13:46 | NUR ---
PEBBLES BAIRD admitted to room 429-1, with an admitting diagnosis of dyspnea, on 09/22/18 from ER via stretcher, accompanied by staff.PEBBLES BAIRD introduced to surroundings, call light, bed controls, phone, TV, temperature control, lights, meal times, smoking policy, visitor policy, side rail policy, bathrooms and showers. Patient Rights given to patient in the handbook. PEBBLES BAIRD verbalizes understanding that [facility] is not responsible for the loss or damage to any personal effects or valuables that are kept in the patients posession during their hospitalization. The following Patient Care Plans and discharge were discussed with the patient . PEBBLES BAIRD verbalizes understanding of Interdisciplinary Patient Education.
[2018-09-22] MEDS ORDERED: FENT1PAT8 TD (15:31)
[2018-09-22] MEDS ORDERED: ASPI-983 PO (15:31)
[2018-09-22] MEDS ORDERED: DONE10TA41 PO (15:31)
--- NOTE | 2018-09-22 15:34 | NUR ---
WENT OVER THE EXT MED HX WITH THE PATIENTS , SHE VERIFIED HOW HE TAKES HIS MEDICATIONS TO THE BEST OF HER ABILITY. THE PATIENT ADMITS HE DOES NOT KNOW WHAT HE TAKES. HE FILLED PLAVIX 07-24-18 HOWEVER SHE STATES THIS HAS BEEN STOPPED UNTIL OTHERWISE INSTRUCTED. HE HAS BEEN OFF IT FOR ABOUT A MONTH SHE STATES. HE TAKES ASPIRIN 81MG DAILY AND PRESERVISION BID OTC.
[2018-09-22 16:35] VITALS: BP 113/76
--- NOTE | 2018-09-22 16:40 | Pulmonary Consultation ---
History of Present Illness History of Present Illness Date of Consultation 09/22/18 16:35 Time Seen by Provider: 16:35 Date of Admission History of Present Illness 83yo poor historian with hx of nonhodkins lymphoma presented to ED secondary to worsening SOB, weakness, and fatigue. He has a hx of chronic right large pleural effusion with multiple thoracentesis in the past. I am consulted for pulmonary management. Allergies and Home Medications Allergies Coded Allergies: No Known Drug Allergies (Unverified , 10/23/11) Home Medications Aspirin 81 Mg Tablet.dr, 81 MG PO DAILY, (Reported) Atorvastatin Calcium 10 Mg Tablet, 10 MG PO HS, (Reported) Donepezil HCl 10 Mg Tablet, 10 MG PO HS, (Reported) Escitalopram Oxalate 10 Mg Tablet, 10 MG PO DAILY, (Reported) Fentanyl 1 Each Patch.td72, 25 MCG TD Q72H, (Reported) Memantine HCl 14 Mg Cap.spr.24, 14 MG PO DAILY, (Reported) Vit A/C/E/Zinc/Co 1 Cap Capsule, 1 CAP PO BID, (Reported) Past Zwnaxam-Vhemsm-Zplexf Hx Patient Social History Alcohol Use: Denies Use Recreational Drug Use: No 2nd Hand Smoke Exposure: No Recent Hopitalizations: No Immunizations Up To Date Date of Pneumonia Vaccine: May 10, 2010 Date of Influenza Vaccine: May 13, 2018 Seasonal Allergies Seasonal Allergies: No Past Medical History Surgeries: Yes (RIGHT THORACENTESIS; HERNIA REPAIR) Abdominal, Appendectomy Respiratory: Yes Currently Using CPAP: No Currently Using BIPAP: No Cardiac: Yes High Cholesterol, Hypertension Neurological: Yes (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 1.0oz. 76.986817zf; 26.5 BMI Method:Stated Exam Exam Height & Weight Height: 5'7.00" Weight: 169lbs. 1.0oz. 76.317908sb; 26.5 BMI Method:Stated General Appearance: No Apparent Distress, WD/WN, Chronically ill HEENT: PERRL/EOMI Neck: Full Range of Motion Respiratory: No Accessory Muscle Use, No Respiratory Distress, Other ( essentially absent lung sounds on the right) Cardiovascular: Regular Rate, Rhythm, Normal Peripheral Pulses Extremity: Normal Capillary Refill, Normal Inspection Neurologic/Psychiatric: Alert, Normal Mood/Affect Skin: Normal Color, Warm/Dry Results Lab Laboratory Tests 09/22/18 11:59 Assessment/Plan Assessment/Plan Large right pleural effusion with opacification probably secondary to lymphoma -Will plan for thoracentesis Severe dementia NAILA TORRES DO Sep 22, 2018 16:40
[2018-09-22] MEDS ORDERED: FENTANYL PATCH REMOVAL TP SCH (17:29)
[2018-09-22] MEDS: NS IV 1000 ML 1,000 ML IV SCH (17:29)
[2018-09-22] MEDS ORDERED: fentaNYL PATCH 25 MCG (DURAGESIC) TD SCH (17:30)
[2018-09-22 19:47] VITALS: BP 122/86
[2018-09-22] MEDS: DONEPEZIL 10 MG (ARICEPT) TAB PO SCH (20:27)
[2018-09-22] MEDS: ATORVASTATIN 10 MG (LIPITOR) TABLET PO SCH (20:28)
[2018-09-22] MEDS ORDERED: NON-FORMULARY MEDICATION 1 EA EA (Donepezil HCl 10 MG) PO SCH (21:00)
[2018-09-22 21:25] VITALS: BP 122/86
--- OUTSIDE RECORDS SUMMARY | 2018-09-22 21:32 | XMS REPORT | Continuity of Care Document ---
Demographics Preferred Language Unknown Marital Status Unknown Amish Affiliation Unknown Race Unknown Ethnic Group Unknown Author Author [facility] Address Unknown Phone Unavailable Allergies Active Description Code Type Severity Reaction Onset Reported/Identified Relationship to Patient Clinical Status Yes No Known Drug Allergies [id number] Drug Allergy Unknown N/A 10/23/2011 Medications There [...] WEIGHT LOSS 04/03/2018 GELLENDER DOEDSON Ot Z79.02 HALFWAY (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 ANTITHROMBOTI 04/03/2018 GELLENDER DOEDSON Ot Z79.82 LITIGATION COUNSEL (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 ASPIRIN 04/03/2018 GELLENDER DO, [...] 04/04/2018 GELLENDER DO, EDSON Salazar Ot Z79.02 HALFWAY (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 ANTITHROMBOTI 04/04/2018 GELLENDER DO, EDSON Salazar Ot Z79.82 LITIGATION COUNSEL (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 ASPIRIN 04/04/2018 GELLENDER DO, [...] 04/05/2018 GELLENDER DO, EDSON Salazar Ot Z79.02 HALFWAY (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 ANTITHROMBOTI 04/05/2018 GELLENDER DO, EDSON Salazar Ot Z79.82 HALFWAY (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 ASPIRIN 04/05/2018 GELLENDER DO, [...] 04/06/2018 GELLENDER DO, EDSON Salazar Ot Z79.02 LITIGATION COUNSEL (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 ANTITHROMBOTI 04/06/2018 GELLENDER DO, EDSON Salazar Ot Z79.82 LITIGATION COUNSEL (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 ASPIRIN 04/06/2018 GELLENDER DO, [...] 04/07/2018 GELLENDER DO, EDSON Salazar Ot Z79.02 LITIGATION COUNSEL (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 ANTITHROMBOTI 04/07/2018 GELLENDER DO, EDSON Salazar Ot Z79.82 LITIGATION COUNSEL (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 ASPIRIN 04/07/2018 GELLENDER DO, [...] 04/08/2018 GELLENDER DO, EDSON Salazar Ot Z79.02 LITIGATION COUNSEL (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 ANTITHROMBOTI 04/08/2018 GELLENDER DO, EDSON Salazar Ot Z79.82 HALFWAY (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 ASPIRIN 04/08/2018 GELLENDER DO, [...] 04/09/2018 GELLENDER DO, EDSON Salazar Ot Z79.02 LITIGATION COUNSEL (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 ANTITHROMBOTI 04/09/2018 GELLENDER DO, EDSON Salazar Ot Z79.82 LITIGATION COUNSEL (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 ASPIRIN 04/09/2018 GELLENDER DO, [...] Salazar Ot G30.9 ALZHEIMER'S DISEASE, UNSPECIFIED 04/09/2018 [facility], EDSON Marie Ot I10 ESSENTIAL (PRIMARY) HYPERTENSION 04/09/2018 [facility], EDSON Salazar Ot J18.9 PNEUMONIA, UNSPECIFIED ORGANISM 04/09/2018 [facility], EDSON Salazar Ot J90 PLEURAL EFFUSION, NOT ELSEWHERE CLASSIFI 04/09/2018 [facility] Salazar Ot J98.19 OTHER PULMONARY COLLAPSE 04/09/2018 [facility], EDSON Marie Ot R42 DIZZINESS AND GIDDINESS 04/09/2018 [facility], EDSON Marie Ot R59.0 LOCALIZED ENLARGED LYMPH NODES 04/09/2018 [facility], EDSON Marie Ot R64 CACHEXIA 04/09/2018 [facility], EDSON Salazar Ot Z79.02 LITIGATION COUNSEL (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 ANTITHROMBOTI 04/09/2018 [facility], EDSON Salazar Ot Z79.82 HALFWAY (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 ASPIRIN 04/09/2018 [facility], EDSON Salazar Ot Z85.72 PERSONAL HISTORY OF NON-HODGKIN LYMPHOMA 04/09/2018 [facility], EDSON Marie Ot Z86.73 PRSNL HX OF TIA (TIA), AND CEREB INFRC W 04/09/2018 [facility], EDSON Salazar Ot Z92.21 PERSONAL HISTORY OF ANTINEOPLASTIC CHEMO 04/16/2018 Ot C85.90 NON-HODGKIN LYMPHOMA, UNSPECIFIED, UNSPE 04/16/2018 Ot F03.90 UNSPECIFIED DEMENTIA WITHOUT BEHAVIORAL 04/16/2018 Ot G47.36 SLEEP RELATED HYPOVENTILATION IN CONDITI 04/16/2018 Ot J98.11 ATELECTASIS 04/16/2018 Ot R63.4 ABNORMAL WEIGHT LOSS 04/16/2018 Ot Z79.82 LITIGATION COUNSEL ( 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 ASPIRIN 04/16/2018 Ot Z87.09 PERSONAL HISTORY OF OTHER DISEASES OF TH 06/03/2018 Ot C85.90 NON-HODGKIN LYMPHOMA, UNSPECIFIED, UNSPE 06/03/2018 Ot J90 PLEURAL EFFUSION, NOT ELSEWHERE CLASSIFI 06/03/2018 Ot J98.11 ATELECTASIS 06/03/2018 Ot R91.8 OTHER NONSPECIFIC ABNORMAL FINDING OF CORIE 06/08/2018 SUAD MANRIQUE DO Ot C85.90 NON-HODGKIN LYMPHOMA, UNSPECIFIED, UNSPE 06/08/2018 [facility] ALTMAN SUAD B Ot E78.00 PURE HYPERCHOLESTEROLEMIA, UNSPECIFIED 06/08/2018 [facility] DO, SUAD B Ot F02.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 CLASSD ELSWHR W 06/08/2018 [facility] DO SUAD B Ot G30.9 ALZHEIMER'S DISEASE, UNSPECIFIED 06/08/2018 [facility] DO, SUAD B Ot I10 ESSENTIAL (PRIMARY) HYPERTENSION 06/08/2018 [facility] ALTMAN SUAD B Ot J90 PLEURAL EFFUSION, NOT ELSEWHERE CLASSIFI 06/08/2018 [facility] DO, SUAD B Ot R06.02 SHORTNESS OF BREATH 06/08/2018 [facility] DO, SUAD B Ot R07.81 PLEURODYNIA 06/08/2018 [facility] DO, SUAD B Ot Z86.73 PRSNL HX OF TIA (TIA), AND CEREB INFRC W 06/08/2018 [facility] DO, SUAD B Ot Z92.21 PERSONAL HISTORY OF ANTINEOPLASTIC CHEMO 06/10/2018 [facility] DO, SUAD B Ot C85.90 NON-HODGKIN LYMPHOMA, UNSPECIFIED, UNSPE 06/10/2018 [facility] DO, SUAD B Ot E78.00 PURE HYPERCHOLESTEROLEMIA, UNSPECIFIED 06/10/2018 [facility] DO, SUAD B Ot F02.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 CLASSD ELSWHR W 06/10/2018 TANYA MANRIQUE DOIC B Ot G30.9 ALZHEIMER'S DISEASE, UNSPECIFIED 06/10/2018 [facility] DO, SUAD B Ot I10 ESSENTIAL (PRIMARY) HYPERTENSION 06/10/2018 TANYA MANRIQUE DOIC B Ot J90 PLEURAL EFFUSION, NOT ELSEWHERE CLASSIFI 06/10/2018 [facility] DO, SUAD B Ot R06.02 SHORTNESS OF BREATH 06/10/2018 [facility] DO, SUAD B Ot R07.81 PLEURODYNIA 06/10/2018 [facility] DO, SUAD B Ot Z86.73 PRSNL HX OF TIA (TIA), AND CEREB INFRC W 06/10/2018 [facility] DO, SUAD B Ot Z92.21 PERSONAL HISTORY OF ANTINEOPLASTIC CHEMO 06/13/2018 [facility] DO, SUAD B Ot C85.90 NON-HODGKIN LYMPHOMA, UNSPECIFIED, UNSPE 06/13/2018 [facility] DO, SUAD B Ot E78.00 PURE HYPERCHOLESTEROLEMIA, UNSPECIFIED 06/13/2018 TANYA MANRIQUE DOIC B Ot F02.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 CLASSD ELSWHR W 06/13/2018 SUAD MANRIQUE DO B Ot G30.9 ALZHEIMER'S DISEASE, UNSPECIFIED 06/13/2018 TANYA MANRIQUE DOIC B Ot I10 ESSENTIAL (PRIMARY) HYPERTENSION 06/13/2018 TANYA MANRIQUE DOIC Bhargav Ot J90 PLEURAL EFFUSION, NOT ELSEWHERE CLASSIFI 06/13/2018 [facility] ALTMAN SUAD B Ot R06.02 SHORTNESS OF BREATH 06/13/2018 TANYA MANRIQUE DOIC B Ot R07.81 PLEURODYNIA 06/13/2018 TANYA MANRIQUE DOIC B Ot Z86.73 PRSNL HX OF TIA (TIA), AND CEREB INFRC W 06/13/2018 [facility] ALTMAN SUAD B Ot Z92.21 PERSONAL HISTORY OF ANTINEOPLASTIC CHEMO 06/17/2018 LIGIA ALTMAN EDSON Marie Ot J90 PLEURAL EFFUSION, NOT ELSEWHERE CLASSIFI 07/08/2018 TASHASEMAJDAVID EDSON ALTMAN Ot J90 PLEURAL EFFUSION, NOT ELSEWHERE CLASSIFI 08/04/2018 ANNA YOUNG CLOD PULLER Ot C34.90 MALIGNANT NEOPLASM OF UNSP PART OF [facility] 08/04/2018 ANNA YOUNG CLOD PULLER Ot C85.90 NON-HODGKIN LYMPHOMA, UNSPECIFIED, UNSPE 08/04/2018 ANNA YOUNG CLOD PULLER Ot F03.90 UNSPECIFIED DEMENTIA WITHOUT BEHAVIORAL 08/04/2018 ANNA YOUNG CLOD PULLER Ot G47.34 IDIO SLEEP RELATED NONOBSTRUCTIVE ALVEOL 08/04/2018 ANNA YOUNG CLOD PULLER Ot J98.11 ATELECTASIS 08/04/2018 ANNA YOUNG CLOD PULLER Ot R63.4 ABNORMAL WEIGHT LOSS 08/04/2018 ANNA YOUNG CLOD PULLER Ot R91.8 OTHER NONSPECIFIC ABNORMAL FINDING OF CORIE 08/04/2018 ANNA YOUNG CLOD PULLER Ot Z87.09 PERSONAL HISTORY OF OTHER DISEASES OF 08/21/2018 EDSON STRONG DO Ot J90 PLEURAL EFFUSION, NOT ELSEWHERE CLASSIFI 09/05/2018 ANNA YOUNG CLOD PULLER Ot C34.90 MALIGNANT NEOPLASM OF UNSP PART OF [facility] 09/05/2018 ANNA YOUNG CLOD PULLER Ot C85.90 NON-HODGKIN LYMPHOMA, UNSPECIFIED, UNSPE 09/05/2018 ANNA YOUNG CLOD PULLER Ot F03.90 UNSPECIFIED DEMENTIA WITHOUT BEHAVIORAL 09/05/2018 ANNA YOUNG CLOD PULLER Ot G47.34 IDIO SLEEP RELATED NONOBSTRUCTIVE ALVEOL 09/05/2018 ANNA YOUNG CLOD PULLER Ot J98.11 ATELECTASIS 09/05/2018 ANNA YOUNG APRN Ot R63.4 ABNORMAL WEIGHT LOSS 09/05/2018 ANNA YOUNG CLOD PULLER Ot R91.8 OTHER NONSPECIFIC ABNORMAL FINDING OF CORIE 09/05/2018 ANNA YOUNG CLOD PULLER Ot Z87.09 PERSONAL HISTORY OF OTHER DISEASES OF 09/11/2018 [facility] EDSON ALTMAN Ot J90 PLEURAL EFFUSION, NOT ELSEWHERE CLASSIFI Procedures Code Description Performed By Performed On [id number] DRAINAGE OF RIGHT PLEURAL CAVITY, PERC A [...] Bacteria identification in isolate by anaerobe culture [facility] Whole blood hemoglobin and hematocrit panel - [...] 04/16/18 08:00 Sputum Gram stain Mixed Bacterial Crari NRG Sputum Gram stain - 04/16/18 08:00 [...] - 04/16/18 08:00 QUANTITY OF GROWTH . [facility] Fungus culture SEE COMMEN NR Complete blood count (CBC) with automated white [...] VLDL measurement (mass/volume) 15 mg/ dL 5-40 Complete blood count (CBC) with automated white blood cell (WBC) differential - 09/22/18 11:59 Blood leukocytes automated count (number/volume) 9.0 10*3/uL 4.3-11.0 Blood erythrocytes automated count (number/volume) 4.82 10*6/uL 4.35-5.85 Venous blood hemoglobin measurement (mass/volume) 15.3 g/dL 13.3-17.7 Blood hematocrit (volume fraction) 46 % 40-54 Automated erythrocyte mean corpuscular volume 94 [foz_us] 80-99 Automated erythrocyte mean corpuscular hemoglobin (mass per erythrocyte) 32 pg 25-34 Automated erythrocyte mean corpuscular hemoglobin concentration measurement ( mass/volume) 34 g/dL 32-36 Automated erythrocyte distribution width ratio 14.3 % 10.0-14.5 Automated blood platelet count (count/volume) 289 10*3/uL 130-400 Automated blood platelet mean volume measurement 10.6 [foz_us] 7.4-10.4 Automated blood neutrophils/100 leukocytes 85 % 42-75 Automated blood lymphocytes/100 leukocytes 8 % 12-44 Blood monocytes/100 leukocytes 6 % 0-12 Automated blood eosinophils/100 leukocytes 1 % 0-10 Automated blood basophils/100 leukocytes 0 % 0-10 Blood neutrophils automated count (number/volume) 7.6 10*3 1.8-7.8 Blood lymphocytes automated count (number/volume) 0.7 10*3 1.0-4.0 Blood monocytes automated count (number/volume) 0.6 10*3 0.0-1.0 Automated eosinophil count 0.1 10*3/uL 0.0-0.3 Automated blood basophil count (count/volume) 0.0 10*3/uL 0.0-0.1 Blood lactic acid measurement (moles/volume) - 09/22/18 11:59 Blood lactic acid measurement (moles/volume) 3.01 mmol/L 0.50-2.00 Comprehensive metabolic panel - 09/22/18 11:59 Serum or plasma sodium measurement (moles/volume) 137 mmol/L 135-145 Serum or plasma potassium measurement (moles/volume) 3.9 mmol/L 3.6-5.0 Serum or plasma chloride measurement (moles/volume) 98 mmol/L 98-107 Carbon dioxide 20 mmol/L 21-32 Serum or plasma anion gap determination (moles/volume) 19 mmol/L 5-14 Serum or plasma urea nitrogen measurement (mass/volume) 20 mg/dL 7-18 Serum or plasma creatinine measurement (mass/volume) 0.88 mg/dL 0.60-1.30 Serum or plasma urea nitrogen/creatinine mass ratio 23 NRG Serum or plasma creatinine measurement with calculation of estimated glomerular filtration rate > NRG Serum or plasma glucose measurement (mass/volume) 138 mg/dL 70-105 Serum or plasma calcium measurement (mass/volume) 10.2 mg/dL 8.5-10.1 Serum or plasma total bilirubin measurement (mass/volume) 1.9 mg/dL 0.1-1.0 Serum or plasma alkaline phosphatase measurement (enzymatic activity/volume) 87 U/L 40-136 Serum or plasma aspartate aminotransferase measurement (enzymatic activity/ volume) 27 U/L 5-34 Serum or plasma alanine aminotransferase measurement (enzymatic activity/volume ) 16 U/L 0-55 Serum or plasma protein measurement (mass/volume) 7.3 g/dL 6.4-8.2 Serum or plasma albumin measurement (mass/volume) 4.1 g/dL 3.2-4.5 CALCIUM CORRECTED 10.1 mg/dL 8.5-10.1 Blood manual differential performed detection - 09/22/18 11:59 Blood monocytes/100 leukocytes 10 % NRG Manual blood segmented neutrophils/100 leukocytes 82 % NRG Manual blood lymphocytes/100 leukocytes 3 % NRG Manual eosinophils/100 leukocytes in nose 1 % NRG Blood lymphocytes variant/100 leukocytes 4 % NRG Blood meli cells detection by light microscopy MODERATE NRG Serum or plasma troponin i.cardiac measurement (mass/volume) - 09/22/18 11:59 Serum or plasma troponin i.cardiac measurement (mass/volume) < ng/ mL <0.028 Serum or plasma lithium measurement (moles/volume) - 09/22/18 11:59 BNP level 79.4 pg/mL <100.0 Serum or plasma lactate measurement (moles/volume) - 09/22/18 14:25 Serum or plasma lactate measurement (moles/volume) 1.41 mmol/L 0.50-2.00 Encounters ACCT No. Visit Date/Time Discharge Status Pt. Type Provider Facility Loc./Unit Complaint [id number] 09/18/2012 15:25:05 RECURRING [facility] 05/26/2015 21:28:29 ACT Document Registration [id number] 09/04/2018 14:20:00 09/04/2018 23:59:59 CLS Outpatient EDSON STRONG DO Via [facility] RAD LEFT SIDE CHEST PAIN [id number] 08/20/2018 13:49:00 08/20/2018 23:59:59 CLS Outpatient EDSON STRONG DO Via [facility] RAD RIGHT PLEURAL EFFUSION [id number] 08/04/2018 13:45:00 08/04/2018 23:59:59 CLS Outpatient ANNA YOUNG APRN Via [facility] RAD J98.11 [id number] 06/16/2018 09:02:00 06/16/2018 23:59:59 CLS Outpatient EDSON STRONG DO Via [facility] RAD RIGHT PLEURAL EFFUSION [id number] 06/07/2018 20:15:00 06/08/2018 16:00:00 DIS Outpatient SUAD MANRIQUE DO Via [facility] SDC RECURRENT R PLEURAL EFFUSION [id number] 08/29/2015 09:14:00 08/29/2015 11:00:00 DIS Emergency WAYNE PENA, STACIE Curran Via [facility] ER DIZZY/NAUSEA [id number] 05/31/2015 10:21:00 06/08/2015 12:40:00 DIS Inpatient DILLAN PENA, SUAD Ruelas Via [facility] IRF DEBILITY [id number] 05/26/2015 21:55:00 05/31/2015 10:21:00 DIS Inpatient LUBNA PENA, PEBBLES R Via [facility] SURGICAL VERTIGO,DIZZY [id number] 09/22/2018 12:08:00 Document Registration [id number] 04/22/2018 08:34:00 Document Registration [id number] 04/16/2018 07:20:00 Document Registration [id number] 04/02/2018 22:45:00 ACT Inpatient EDSON STRONG DO Via [facility] 4TH LARGE PLEURAL EFFUSION W COLLAPSE OF RT LUNG [id number] 06/18/2015 23:43:00 Document Registration [id number] 03/13/2012 16:58:00 Document Registration [id number] 10/23/2011 21:41:00 Document Registration [id number] 08/10/2011 13:13:00 Document Registration [id number] 02/06/2011 14:39:00 Document Registration
--- OUTSIDE RECORDS SUMMARY | 2018-09-22 22:38 | XMS REPORT | Continuity of Care Document ---
Demographics Preferred Language Unknown Marital Status Unknown Jew Affiliation Unknown Race Unknown Ethnic Group Unknown Author Author [facility] C[facility] of [facility] C[facility] Address Unknown Phone Unavailable Allergies Active Description Code Type Severity Reaction Onset Reported/Identified Relationship to Patient Clinical Status Yes No Known Drug Allergies [id number] Drug Allergy Unknown N/A 10/23/2011 Medications There [...] SUAD GRIMALDO MD E Ot 331.83 06/06/2015 SAUD GRIMALDO MD E Ot 332.0 06/06/2015 SUAD [...] WEIGHT LOSS 04/03/2018 GELLENDER DOEDSON Ot Z79.02 LONGTERM (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 ANTITHROMBOTI 04/03/2018 GELLENDER DOEDSON Ot Z79.82 MALE IMPERSONATOR (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 ASPIRIN 04/03/2018 GELLENDER DO, [...] EFFUSION, NOT ELSEWHERE CLASSIFI 04/04/2018 GELLENDER DO, ESDON Salazar Ot J98.19 OTHER PULMONARY COLLAPSE 04/04/2018 GELLENDER DO, EDSON Salazar Ot R42 DIZZINESS AND GIDDINESS 04/04/2018 GELLENDER DO, EDSON Salazar Ot R59.0 LOCALIZED ENLARGED LYMPH NODES 04/04/2018 GELLENDER DO, EDSON Salazar Ot R63.4 ABNORMAL WEIGHT LOSS 04/04/2018 GELLENDER DO, EDSON Salazar Ot Z79.02 LONGTERM (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 ANTITHROMBOTI 04/04/2018 GELLENDER DO, EDSON Salazar Ot Z79.82 MALE IMPERSONATOR (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 ASPIRIN 04/04/2018 GELLENDER DO, [...] 04/05/2018 GELLENDER DO, EDSON Salazar Ot Z79.02 LONGTERM (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 ANTITHROMBOTI 04/05/2018 GELLENDER DO, EDSON Salazar Ot Z79.82 LONGTERM (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 ASPIRIN 04/05/2018 GELLENDER DO, [...] 04/06/2018 GELLENDER DO, EDSON Salazar Ot Z79.02 MALE IMPERSONATOR (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 ANTITHROMBOTI 04/06/2018 GELLENDER DO, EDSON Salazar Ot Z79.82 MALE IMPERSONATOR (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 ASPIRIN 04/06/2018 GELLENDER DO, [...] 04/07/2018 GELLENDER DO, EDSON Salazar Ot Z79.02 MALE IMPERSONATOR (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 ANTITHROMBOTI 04/07/2018 GELLENDER DO, EDSON Salazar Ot Z79.82 MALE IMPERSONATOR (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 ASPIRIN 04/07/2018 GELLENDER DO, [...] 04/08/2018 GELLENDER DO, EDSON Salazar Ot Z79.02 MALE IMPERSONATOR (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 ANTITHROMBOTI 04/08/2018 GELLENDER DO, EDSON Salazar Ot Z79.82 LONGTERM (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 ASPIRIN 04/08/2018 GELLENDER DO, [...] 04/09/2018 GELLENDER DO, EDSON Salazar Ot Z79.02 MALE IMPERSONATOR (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 ANTITHROMBOTI 04/09/2018 GELLENDER DO, EDSON Salazar Ot Z79.82 MALE IMPERSONATOR (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 ASPIRIN 04/09/2018 GELLENDER DO, [...] Salazar Ot G30.9 ALZHEIMER'S DISEASE, UNSPECIFIED 04/09/2018 [facility], EDSON Marie Ot I10 ESSENTIAL (PRIMARY) HYPERTENSION 04/09/2018 [facility], EDSON Salazar Ot J18.9 PNEUMONIA, UNSPECIFIED ORGANISM 04/09/2018 [facility], EDSON Salazar Ot J90 PLEURAL EFFUSION, NOT ELSEWHERE CLASSIFI 04/09/2018 [facility] Sal[facility] Ot J98.19 OTHER PULMONARY COLLAPSE 04/09/2018 [facility], EDSON Marie Ot R42 DIZZINESS AND GIDDINESS 04/09/2018 [facility], EDSON Marie Ot R59.0 LOCALIZED ENLARGED LYMPH NODES 04/09/2018 [facility], EDSON Marie Ot R64 CACHEXIA 04/09/2018 [facility], EDSON Salazar Ot Z79.02 MALE IMPERSONATOR (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 ANTITHROMBOTI 04/09/2018 [facility], EDSON Salazar Ot Z79.82 LONGTERM (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 ASPIRIN 04/09/2018 [facility], EDSON Salazar Ot Z85.72 PERSONAL HISTORY OF NON-HODGKIN LYMPHOMA 04/09/2018 [facility], EDSON Marie Ot Z86.73 PRSNL HX OF TIA (TIA), AND CEREB INFRC W 04/09/2018 [facility], EDSON Salazar Ot Z92.21 PERSONAL HISTORY OF ANTINEOPLASTIC CHEMO 04/16/2018 Ot C85.90 NON-HODGKIN LYMPHOMA, UNSPECIFIED, UNSPE 04/16/2018 Ot F03.90 UNSPECIFIED DEMENTIA WITHOUT BEHAVIORAL 04/16/2018 Ot G47.36 SLEEP RELATED HYPOVENTILATION IN CONDITI 04/16/2018 Ot J98.11 ATELECTASIS 04/16/2018 Ot R63.4 ABNORMAL WEIGHT LOSS 04/16/2018 Ot Z79.82 MALE IMPERSONATOR ( 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 ASPIRIN 04/16/2018 Ot [...] EFFUSION, NOT ELSEWHERE CLASSIFI 08/04/2018 ANNA YOUNG OPERATIONS LEADER Ot C34.90 MALIGNANT NEOPLASM OF UNSP PART OF [facility] 08/04/2018 ANNA YOUNG OPERATIONS LEADER Ot C85.90 NON-HODGKIN LYMPHOMA, UNSPECIFIED, UNSPE 08/04/2018 ANNA YOUNG OPERATIONS LEADER Ot F03.90 UNSPECIFIED DEMENTIA WITHOUT BEHAVIORAL 08/04/2018 ANNA YOUNG OPERATIONS LEADER Ot G47.34 IDIO SLEEP RELATED NONOBSTRUCTIVE ALVEOL 08/04/2018 ANNA YOUNG OPERATIONS LEADER Ot J98.11 ATELECTASIS 08/04/2018 ANNA YOUNG OPERATIONS LEADER Ot R63.4 ABNORMAL WEIGHT LOSS 08/04/2018 ANNA YOUNG OPERATIONS LEADER Ot R91.8 OTHER NONSPECIFIC ABNORMAL FINDING OF CORIE 08/04/2018 ANNA YOUNG OPERATIONS LEADER Ot Z87.09 PERSONAL HISTORY OF OTHER DISEASES OF 08/21/2018 EDSON STRONG DO Ot J90 PLEURAL EFFUSION, NOT ELSEWHERE CLASSIFI 09/05/2018 ANNA YOUNG OPERATIONS LEADER Ot C34.90 MALIGNANT NEOPLASM OF UNSP PART OF [facility] 09/05/2018 ANNA YOUNG OPERATIONS LEADER Ot C85.90 NON-HODGKIN LYMPHOMA, UNSPECIFIED, UNSPE 09/05/2018 ANNA YOUNG OPERATIONS LEADER Ot F03.90 UNSPECIFIED DEMENTIA WITHOUT BEHAVIORAL 09/05/2018 ANNA YOUNG OPERATIONS LEADER Ot G47.34 IDIO SLEEP RELATED NONOBSTRUCTIVE ALVEOL 09/05/2018 ANNA YOUNG OPERATIONS LEADER Ot J98.11 ATELECTASIS 09/05/2018 ANNA YOUNG APRN Ot R63.4 ABNORMAL WEIGHT LOSS 09/05/2018 ANNA YOUNG OPERATIONS LEADER Ot R91.8 OTHER NONSPECIFIC ABNORMAL FINDING OF CORIE 09/05/2018 ANNA YOUNG OPERATIONS LEADER Ot Z87.09 PERSONAL HISTORY OF OTHER DISEASES OF 09/11/2018 [facility] EDSON ALTMAN Ot J90 PLEURAL EFFUSION, NOT ELSEWHERE CLASSIFI Procedures Code Description Performed By Performed On [id number] DRAINAGE OF RIGHT PLEURAL CAVITY, PERC A [...] Bacteria identification in isolate by anaerobe culture [facility] Whole blood hemoglobin and hematocrit panel - [...] - 04/16/18 08:00 QUANTITY OF GROWTH . [facility] Fungus culture SEE COMMEN NR Complete [...] Status Pt. Type Provider Facility Loc./Unit Complaint [id number] 09/18/2012 15:25:05 RECURRING [facility] 05/26/2015 21:28:29 ACT Document Registration [id number] 09/04/2018 14:20:00 09/04/2018 23:59:59 CLS Outpatient EDSON STRONG DO Via [facility] RAD LEFT SIDE CHEST PAIN [id number] 08/20/2018 13:49:00 08/20/2018 23:59:59 CLS Outpatient EDSON STRONG DO Via [facility] RAD RIGHT PLEURAL EFFUSION [id number] 08/04/2018 13:45:00 08/04/2018 23:59:59 CLS Outpatient ANNA YOUNG APRN Via [facility] RAD J98.11 [id number] 06/16/2018 09:02:00 06/16/2018 23:59:59 CLS Outpatient EDSON STRONG DO Via [facility] RAD RIGHT PLEURAL EFFUSION [id number] 06/07/2018 20:15:00 06/08/2018 16:00:00 DIS Outpatient SUAD MANRIQUE DO Via [facility] SDC RECURRENT R PLEURAL EFFUSION [id number] 08/29/2015 09:14:00 08/29/2015 11:00:00 DIS Emergency WAYNE PENA, STACIE Curran Via [facility] ER DIZZY/NAUSEA [id number] 05/31/2015 10:21:00 06/08/2015 12:40:00 DIS Inpatient DILLAN PENA, SUAD Ruelas Via [facility] IRF DEBILITY [id number] 05/26/2015 21:55:00 05/31/2015 10:21:00 DIS Inpatient LUBNA PENA, PEBBLES R Via [facility] SURGICAL VERTIGO,DIZZY [id number] 09/22/2018 12:59:00 ACT Inpatient TASHAEDSON COSTA DO Via [facility] 4TH DYSPNEA;RECURRENT R PLEURAL EFFUSION [id number] 04/22/2018 08:34:00 Document Registration [id number] 04/16/2018 07:20:00 Document Registration [id number] 04/02/2018 22:45:00 ACT Inpatient TASHAJULISSA ALTMAN EDSON Marie Via [facility] 4TH LARGE PLEURAL EFFUSION W COLLAPSE OF RT LUNG [id number] 06/18/2015 23:43:00 Document Registration [id number] 03/13/2012 16:58:00 Document Registration [id number] 10/23/2011 21:41:00 Document Registration [id number] 08/10/2011 13:13:00 Document Registration [id number] 02/06/2011 14:39:00 Document Registration
[2018-09-22] MEDS ORDERED: RT-ALBUTEROL SULF 2.5 MG/3 ML PRE-MIX VIAL INH PRN (23:30)
[2018-09-23] VITALS: BP 127/72
[2018-09-23 03:51] VITALS: BP 138/85
[2018-09-23 05:54] LABS: BASOPHILS % (AUTO) 0 % (0-10); EOSINOPHILS # (AUTO) 0.1 10^3/uL (0.0-0.3); EOSINOPHILS % (AUTO) 2 % (0-10); HEMATOCRIT 44 % (40-54); HEMOGLOBIN 14.2 G/DL (13.3-17.7); LYMPHOCYTES # (AUTO) 0.8 X 10^3 (1.0-4.0); LYMPHOCYTES % (AUTO) 13 % (12-44); MEAN CORPUSCULAR HEMOGLOBIN 31 PG (25-34); MEAN CORPUSCULAR HGB CONC 33 G/DL (32-36); MEAN CORPUSCULAR VOLUME 95 FL (80-99); MEAN PLATELET VOLUME 10.5 FL (7.4-10.4); MONOCYTES # (AUTO) 0.8 X 10^3 (0.0-1.0); MONOCYTES % (AUTO) 12 % (0-12); NEUTROPHILS # (AUTO) 4.9 X 10^3 (1.8-7.8); NEUTROPHILS % (AUTO) 74 % (42-75); PLATELET COUNT 206 10^3/uL (130-400); WHITE BLOOD COUNT 6.7 10^3/uL (4.3-11.0)
[2018-09-23 06:19] LABS: ALANINE AMINOTRANSFERASE 16 U/L (0-55); ALBUMIN 3.7 GM/DL (3.2-4.5); ALKALINE PHOSPHATASE 74 U/L (40-136); BILIRUBIN,TOTAL 1.7 MG/DL (0.1-1.0); BUN/CREATININE RATIO 23; CALCIUM 9.3 MG/DL (8.5-10.1); CARBON DIOXIDE 23 MMOL/L (21-32); CHLORIDE 98 MMOL/L (98-107); CREATININE SERUM 0.77 MG/DL (0.60-1.30); GFR ESTIMATED > 60; GLUCOSE 79 MG/DL (70-105); POTASSIUM 3.9 MMOL/L (3.6-5.0); SODIUM 133 MMOL/L (135-145); TOTAL PROTEIN 6.4 GM/DL (6.4-8.2)
--- NOTE | 2018-09-23 07:18 | Pulmonary Progress Note ---
HARINI WALKER Bina STUDENT 09/23/18 0718: Subjective Date Seen by a Provider: Sep 23, 2018 Time Seen by a Provider: 07:13 Sepsis Event Evaluation Height, Weight, BMI Height: 5'7.00" Weight: 169lbs. 1.0oz. 76.500728fg; 26.5 BMI Method:Stated Focused Exam Lactate Level 09/22/18 11:59: Lactic Acid Level 3.01*H 09/22/18 14:25: Lactic Acid Level 1.41 Exam Exam Vital Signs Date Time Temp Pulse Resp B/P (MAP) Pulse Ox O2 Delivery O2 Flow Rate FiO2 09/23/18 03:51 96.5 66 20 138/85 (102) 98 Nasal Cannula 2.00 09/23/18 02:00 96.5 66 20 09/23/18 01:00 65 09/23/18 00:00 97.6 79 17 127/72 (90) 94 Nasal Cannula 2.00 09/22/18 21:25 94 Nasal Cannula 2.00 09/22/18 21:25 68 94 09/22/18 20:00 Nasal Cannula 2.00 09/22/18 19:47 97.9 74 18 122/86 (98) 96 Nasal Cannula 2.00 09/22/18 19:00 70 09/22/18 18:35 Nasal Cannula 2.00 09/22/18 16:35 97.1 74 18 113/76 (88) 93 Nasal Cannula 2.00 09/22/18 16:23 78 09/22/18 13:28 86 20 116/88 (97) 98 Nasal Cannula 2.00 09/22/18 11:38 93.7 98 20 127/99 (108) 92 Room Air I & O 09/23/18 07:00 Intake Total 200 ml Balance 200 ml Height & Weight Height: 5'7.00" Weight: 169lbs. 1.0oz. 76.634296qd; 26.5 BMI Method:Stated General Appearance: No Apparent Distress, WD/WN, Chronically ill HEENT: PERRL/EOMI Neck: Full Range of Motion Respiratory: No Accessory Muscle Use, No Respiratory Distress, Other ( essentially absent lung sounds on the right) Cardiovascular: Regular Rate, Rhythm, Normal Peripheral Pulses Capillary Refill: Less Than 3 Seconds Extremity: Normal Capillary Refill, Normal Inspection Neurologic/Psychiatric: Alert, Normal Mood/Affect Skin: Normal Color, Warm/Dry Results Lab Laboratory Tests 09/22/18 11:59 09/23/18 05:49 Assessment/Plan Assessment/Plan Large right pleural effusion with opacification probably secondary to lymphoma -CXR showed effusion was similar to 08/04/18. -Thoracentesis today with pleural fluid analysis -CXR following thoracentesis -Oxygen Severe dementia -Continue home medications -Monitor Non-hodgkin Lymphoma -Consult heme/onc NAILA TORRES DO 09/24/18 1500: Subjective Time Seen by a Provider: 08:30 Subjective/Events-last exam NO complications noted. Exam Exam General Appearance: No Apparent Distress, WD/WN, Chronically ill HEENT: PERRL/EOMI Neck: Full Range of Motion Respiratory: No Accessory Muscle Use, No Respiratory Distress Cardiovascular: Regular Rate, Rhythm, Normal Peripheral Pulses Capillary Refill: Less Than 3 Seconds Extremity: Normal Capillary Refill, Normal Inspection Neurologic/Psychiatric: Alert, Normal Mood/Affect Skin: Normal Color, Warm/Dry Lymphatic: No Adenopathy Assessment/Plan Assessment/Plan Large right pleural effusion with opacification probably secondary to lymphoma -CXR showed effusion was similar to 08/04/18. -Oxygen Severe dementia -Continue home medications -Monitor Non-hodgkin Lymphoma -Consult heme/onc Called to patients room secondary to family presenting to bedside and wanting an update. I answered all of their questions and concerns. Family wants more information on hospice care. I called barrel roller operator to help answer questions. 60 min was spent with patient, medical staff and family. family does not want thoracentesis done. PT is on 2 liters of oxygen doing well. Advance Care discuss with: patient, family member (s), surrogate End of Life Care: Comfort Measures, Pallative Care, Hospice (Hospital), Hospice Care (Home) Advance Care Discussion: initiate discussion, clarifying prognosis, identified end-of-life goals, developed treatment plan Time spent on discussion(mins): 60 HARINI WALKER Sep 23, 2018 07:18 NAILA TORRES DO Sep 24, 2018 15:00
--- NOTE | 2018-09-23 08:18 | History & Physicial ---
History of Present Illness History of Present Illness Reason for visit/HPI Patient was brought to the office by DPOA Patient has been weak. Patient tolerated and not eating or taking fluids. Patient has history of right pleural effusion. Patient has history of non-Hodgkin's lymphoma years ago. Patient has dementia. Patient unable to make any decisions.. Patient sent out to the emergency room. Patient admitted. Patient's daughter, from [place]. Patient's daughter may not want thoracentesis. Patient uses fentanyl patch for his pain which works.. Date of Admission Sep 22, 2018 at 12:59 Time Seen by a Provider: 08:13 I consulted on this patient on 09/23/18 08:12 Attending Physician Mario Strong DO Admitting Physician Mario Strong DO Consult Allergies and Home Medications Allergies Coded Allergies: No Known Drug Allergies (Unverified , 10/23/11) Home Medications Aspirin 81 Mg Tablet.dr, 81 MG PO DAILY, (Reported) Atorvastatin Calcium 10 Mg Tablet, 10 MG PO HS, (Reported) Donepezil HCl 10 Mg Tablet, 10 MG PO HS, (Reported) Escitalopram Oxalate 10 Mg Tablet, 10 MG PO DAILY, (Reported) Fentanyl 1 Each Patch.td72, 25 MCG TD Q72H, (Reported) Memantine HCl 14 Mg Cap.spr.24, 14 MG PO DAILY, (Reported) Vit A/C/E/Zinc/Co 1 Cap Capsule, 1 CAP PO BID, (Reported) Patient Home Medication List Home Medication List Reviewed: Yes Past Odjticr-Gzgjij-Onidwy Hx Patient Social History Marrital Status: Employed/Student: retired Alcohol Use: Denies Use Recreational Drug Use: No Smoking Status: Never a Smoker 2nd Hand Smoke Exposure: No Physical Abuse Screen: No Sexual Abuse: No Recent Foreign Travel: No Contact w/other who traveled: No Recent Hopitalizations: No Recent Infectious Disease Expo: No Immunizations Up To Date Tetanus Booster (TDap): Unknown Date of Pneumonia Vaccine: May 10, 2010 Date of Influenza Vaccine: May 13, 2018 Seasonal Allergies Seasonal Allergies: No Surgeries Yes (RIGHT THORACENTESIS; HERNIA REPAIR) Abdominal, Appendectomy Respiratory Yes Currently Using CPAP: No Currently Using BIPAP: No Cardiovascular Yes High Cholesterol, Hypertension Neurological Yes (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 ) Dementia, Stroke Reproductive System Hx Reproductive Disorders: No Sexually Transmitted Disease: No Genitourinary No Gastrointestinal No Musculoskeletal No Endocrine History of Endocrine Disorders: No HEENT History of HEENT Disorders: No Cancer Yes (NON-HODGKINS LYMPHOMA, 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53, 1895) Lymphoma Did You Recieve Any Treatments: Yes Type of Treatment: Chemotherapy Psychosocial History of Psychiatric Problem: No Integumentary History of Skin or Integumenta: No Blood Transfusions History of Blood Disorders: No Family Medical History Significant Family History: Hypertension Family Hx: Hypertension 19 FATHER Kidney disease 19 FATHER Review of Systems Constitutional: malaise, weakness EENTM: no symptoms reported Respiratory: short of breath, other (Right pleural effusion) Gastrointestinal: no symptoms reported Genitourinary: other Physical Exam Vital Signs Vital Signs - First Documented 09/22/18 09/22/18 11:38 13:28 Temp 93.7 Pulse 98 Resp 20 B/P (MAP) 127/99 (108) Pulse Ox 92 O2 Delivery Room Air O2 Flow Rate 2.00 Capillary Refill : Less Than 3 Seconds Height, Weight, BMI Height: 5'7.00" Weight: 169lbs. 1.0oz. 76.117865bq; 26.5 BMI Method:Stated General Appearance: No Apparent Distress, Thin Eyes: Bilateral Eye Normal Inspection HEENT: Normal ENT Inspection Neck: Full Range of Motion, Normal Inspection Respiratory: Decreased Breath Sounds, Other (No right breath sounds) Cardiovascular: Regular Rate, Rhythm Gastrointestinal: Non Tender, Soft Assessment/Plan Assessment and Plan Dyspnea. Recurrent right pleural effusion. History of much Hodgkin's lymphoma. Weakness. Decreased appetite decreased fluid intake. Dementia Admission Diagnosis Admission Status: Inpatient Order (span 2 midnights) Reason for Inpatient Admission: Right pleural effusion. Weakness. Decreased appetite and fluid intake. Thoracentesis Clinical Quality Measures DVT/VTE Risk/Contraindication: Risk Factor Score Per Nursin RFS Level Per Nursing on Admit: 4+=Very High MARIO STRONG DO Sep 23, 2018 08:18
[2018-09-23] MEDS ORDERED: FENTANYL PATCH REMOVAL TP SCH (08:59)
[2018-09-23] MEDS ORDERED: NON-FORMULARY MEDICATION 1 EA EA (Escitalopram Oxalate 10 MG) PO SCH (09:00)
[2018-09-23] MEDS ORDERED: MEMANTINE HCL 14 MG PO SCH (09:00)
[2018-09-23] MEDS ORDERED: fentaNYL PATCH 25 MCG (DURAGESIC) TD SCH (09:00)
[2018-09-23] MEDS: ASPIRIN E.C. 81 MG (ECOTRIN) TAB PO SCH (09:09)
[2018-09-23] MEDS: MEMANTINE 5 MG (NAMENDA) TABLET PO SCH ×2 (09:09→20:09)
[2018-09-23] MEDS: RT-ALBUTEROL SULF 2.5 MG/3 ML PRE-MIX VIAL INH SCH ×2 (09:20→20:20)
--- NOTE | 2018-09-23 09:24 | Diagnostic Imaging Report ---
INDICATION: Decreased breath sounds. TECHNIQUE: Frontal view of the chest. COMPARISON: 09/22/2018 FINDINGS: There is unchanged complete opacification of the right hemithorax with leftward shift of the mediastinum. Deviation appears mildly increased compared to the prior study. Otherwise, aeration appears stable. No pneumothorax is seen. IMPRESSION: 1. Unchanged complete opacification of the right hemithorax with mildly increased leftward mediastinal shift. Dictated by: Dictated on workstation # [id number]
[2018-09-23] MEDS: NS IV 1000 ML 1,000 ML IV SCH (12:41)
[2018-09-23 16:20] VITALS: BP 117/79
--- NOTE | 2018-09-23 16:51 | NUR ---
CM/SS, respond to consult. Visited with patient and his significant other/CONSTANZA Mcfarland. The referral was for community nursing facility placement; however, this is to be determined by patient progress. Patient desires to return to his home, he was still able to climb the stairs to his upstairs bedroom prior to acute illness. Will monitor for his acute illness and response to treatment and interventions. His only child, daughter Julissa Gandhi, is coming from [place], [place] today and will stay a period of time to visit and support. Julissa has 3 children, so patient has 3 grands and 4 great grands. Continuing intermittent review for post hospital care planning.
--- NOTE | 2018-09-23 16:58 | NUR ---
PALLIATIVE CARE RN was called by Dr. Esquivel to visit with the patient's daughter and his about hospice care in a facility possibly. I visited with them about hospice and offered the hospice choices to them. They are intending to speak with them tomorrow and make a decision. In the meantime, I will see which [facility] have availability for a male patient on hospice. Will resume fulfilling this POC in the morning.
[2018-09-23] MEDS: ATORVASTATIN 10 MG (LIPITOR) TABLET PO SCH (20:09)
[2018-09-23] MEDS: DONEPEZIL 10 MG (ARICEPT) TAB PO SCH (20:09)
[2018-09-23 20:10] VITALS: BP 122/78
--- NOTE | 2018-09-23 20:14 | NUR ---
THIS RN CALLED DR STRONG IN REGARDS TO THE PT PULLING OUT HIS IV, ORDERS RECEIVED TO LEAVE IV OUT UNTIL DR. STRONG SEES THE PT ON 09/24/18. ORDERS READ BACK AND VERIFIED.
[2018-09-24 00:16] VITALS: BP 129/80
[2018-09-24 03:56] VITALS: BP 139/88
[2018-09-24 04:55] LABS: HEMOGLOBIN 12.1 G/DL (13.3-17.7); MEAN PLATELET VOLUME 10.6 FL (7.4-10.4); RED BLOOD COUNT 3.85 10^6/uL (4.35-5.85); WHITE BLOOD COUNT 5.3 10^3/uL (4.3-11.0)
[2018-09-24 05:14] LABS: BUN/CREATININE RATIO 26; CALCIUM 8.7 MG/DL (8.5-10.1); CARBON DIOXIDE 25 MMOL/L (21-32); CHLORIDE 100 MMOL/L (98-107); CREATININE SERUM 0.69 MG/DL (0.60-1.30); GFR ESTIMATED > 60; GLUCOSE 89 MG/DL (70-105); POTASSIUM 3.9 MMOL/L (3.6-5.0); SODIUM 134 MMOL/L (135-145)
[2018-09-24] MEDS: RT-ALBUTEROL SULF 2.5 MG/3 ML PRE-MIX VIAL INH SCH ×2 (07:15→20:55)
--- NOTE | 2018-09-24 07:40 | Progress Note (SOAP) ---
Subjective Time Seen by a Provider: 07:37 Subjective/Events-last exam Right pleural effusion. Dementia. Failing health. Daughter considering hospice. Patient doing better today. Decision has to be made whether to shelter or back home. Patient unable to give any and put due to dementia. director human services and palliative care will talk to family today Focused Exam Lactate Level 09/22/18 11:59: Lactic Acid Level 3.01*H 09/22/18 14:25: Lactic Acid Level 1.41 Objective Exam Vital Signs Date Time Temp Pulse Resp B/P (MAP) Pulse Ox O2 Delivery O2 Flow Rate FiO2 09/24/18 07:15 96 Nasal Cannula 2.00 09/24/18 03:56 97.2 68 18 139/88 (105) 97 Nasal Cannula 2.00 09/24/18 00:16 98.6 72 18 129/80 (96) 95 Nasal Cannula 2.00 09/23/18 20:20 94 Nasal Cannula 2.00 09/23/18 20:10 97.7 75 18 122/78 (93) 92 Nasal Cannula 2.00 09/23/18 20:00 Nasal Cannula 2.00 09/23/18 16:20 97.5 69 18 117/79 (92) 93 Nasal Cannula 2.00 09/23/18 13:25 73 09/23/18 08:00 Nasal Cannula 2.00 I & O 09/24/18 07:00 Intake Total 1090 ml Output Total 800 ml Balance 290 ml Capillary Refill : Less Than 3 Seconds General Appearance: No Apparent Distress, Thin HEENT: Normal ENT Inspection Respiratory: Other (Right lung breath sounds) Results Lab Laboratory Tests 09/24/18 04:35: White Blood Count 5.3, Red Blood Count 3.85L, Hemoglobin 12.1L, Hematocrit 37L, Mean Corpuscular Volume 95, Mean Corpuscular Hemoglobin 31, Mean Corpuscular Hemoglobin Concent 33, Red Cell Distribution Width 14.0, Platelet Count 174, Mean Platelet Volume 10.6H, Sodium Level 134L, Potassium Level 3.9, Chloride Level 100, Carbon Dioxide Level 25, Anion Gap 9, Blood Urea Nitrogen 18, Creatinine 0.69, Estimat Glomerular Filtration Rate > 60, BUN/Creatinine Ratio 26, Glucose Level 89, Calcium Level 8.7 Microbiology 09/22/18 Blood Culture - Preliminary, Resulted No growth Assessment/Plan Assessment/Plan Assess & Plan/Chief Complaint Dementia. Right lung pleural effusion. History of non-Hodgkin's lymphoma. Family considering hospice much. Family and sure of home versus shelter Clinical Quality Measures Admission Status Admission Dx Dyspnea. Recurrent right pleural effusion. History of much Hodgkin's lymphoma. Weakness. Decreased appetite decreased fluid intake. Dementia DVT/VTE Risk/Contraindication: Risk Factor Score Per Nursin RFS Level Per Nursing on Admit: 4+=Very High Contraindications-Pharm: Other *list below* EDSON STRONG DO Sep 24, 2018 07:40
[2018-09-24 08:00] VITALS: BP 138/89
[2018-09-24] MEDS: MEMANTINE 5 MG (NAMENDA) TABLET PO SCH ×2 (08:58→20:41)
[2018-09-24] MEDS: ASPIRIN E.C. 81 MG (ECOTRIN) TAB PO SCH (08:58)
--- NOTE | 2018-09-24 10:19 | NUR ---
PALLIATIVE CARE /DISCHARGE PLANNING: This RN spoke with Meghan, patient's this morning. Updated on the care facility tan. I have made calls but do not have answers x [facility] has 1 bed and already has 1 referral for it. I will send referral for this patient as well. [facility] is full and does not anticipate beds being available anytime soon. has asked about [facility] in [place] I will call and enquire. They have made no decision on hospice choice and she plans to visit with a couple with her daughter today.
--- NOTE | 2018-09-24 11:57 | NUR ---
DISCHARGE PLANNING: This RN has sent referral to [facility], [facility] and have spoken with [facility] in [place] for possible placement. [facility] has a waiting list but said they could call them in 1 week to see. Awaiting decisions from the [facility]. Family is not is room to discuss what I have been working on .
[2018-09-24 12:00] VITALS: BP 124/68
--- NOTE | 2018-09-24 14:08 | NUR ---
DISCHARGE PLANNING: I have received confirmation from [facility] that the patient has been accepted. Family is aware and is headed to the facility to see Yeimy Sanches. They have yet to choose a hospice to provide service but assured me they would make a choice by the end of the day. Addendum: 09/24/18 at 1539 by TERESA ROSENTHAL RN Patient's family has chosen [facility] to provide care at the chosen [facility]. I will send clinical information to [place]. I called and spoke to Dr. David and updated him on POC for discharge tomorrow.
--- NOTE | 2018-09-24 15:02 | Pulmonary Progress Note ---
Subjective Time Seen by a Provider: 15:02 Subjective/Events-last exam No complications noted. Sepsis Event Evaluation Height, Weight, BMI Height: 5'7.00" Weight: 169lbs. 1.0oz. 76.163625dt; 26.5 BMI Method:Stated Focused Exam Lactate Level 09/22/18 11:59: Lactic Acid Level 3.01*H 09/22/18 14:25: Lactic Acid Level 1.41 Exam Exam Vital Signs Date Time Temp Pulse Resp B/P (MAP) Pulse Ox O2 Delivery O2 Flow Rate FiO2 09/24/18 07:15 96 Nasal Cannula 2.00 09/24/18 03:56 97.2 68 18 139/88 (105) 97 Nasal Cannula 2.00 09/24/18 00:16 98.6 72 18 129/80 (96) 95 Nasal Cannula 2.00 09/23/18 20:20 94 Nasal Cannula 2.00 09/23/18 20:10 97.7 75 18 122/78 (93) 92 Nasal Cannula 2.00 09/23/18 20:00 Nasal Cannula 2.00 09/23/18 16:20 97.5 69 18 117/79 (92) 93 Nasal Cannula 2.00 I & O 09/24/18 07:00 Intake Total 1090 ml Output Total 800 ml Balance 290 ml Height & Weight Height: 5'7.00" Weight: 169lbs. 1.0oz. 76.906253nf; 26.5 BMI Method:Stated General Appearance: No Apparent Distress, WD/WN, Chronically ill HEENT: PERRL/EOMI Neck: Full Range of Motion Respiratory: No Accessory Muscle Use, No Respiratory Distress Cardiovascular: Regular Rate, Rhythm, Normal Peripheral Pulses Capillary Refill: Less Than 3 Seconds Extremity: Normal Capillary Refill, Normal Inspection Neurologic/Psychiatric: Alert, Normal Mood/Affect Skin: Normal Color, Warm/Dry Lymphatic: No Adenopathy Results Lab Laboratory Tests 09/23/18 05:49 09/24/18 04:35 Assessment/Plan Assessment/Plan Large right pleural effusion with opacification probably secondary to lymphoma -Oxygen Severe dementia -Continue home medications -Monitor Non-hodgkin Lymphoma -Consult heme/onc possible discharge with hospice. NAILA TORRES DO Sep 24, 2018 15:02
[2018-09-24 15:50] VITALS: BP 141/83
[2018-09-24 19:36] VITALS: BP 130/76
[2018-09-24] MEDS: ATORVASTATIN 10 MG (LIPITOR) TABLET PO SCH (20:41)
[2018-09-24] MEDS: DONEPEZIL 10 MG (ARICEPT) TAB PO SCH (20:41)
[2018-09-25 00:14] VITALS: BP 147/82
[2018-09-25 03:55] VITALS: BP 150/92
[2018-09-25] MEDS: RT-ALBUTEROL SULF 2.5 MG/3 ML PRE-MIX VIAL INH SCH (07:25)
--- NOTE | 2018-09-25 07:34 | Pulmonary Progress Note ---
Subjective Time Seen by a Provider: 07:32 Subjective/Events-last exam Family at bedside. Pt is awaiting bed placement at [facility] Sepsis Event Evaluation Height, Weight, BMI Height: 5'7.00" Weight: 169lbs. 1.0oz. 76.535229ji; 26.5 BMI Method:Stated Focused Exam Lactate Level 09/22/18 11:59: Lactic Acid Level 3.01*H 09/22/18 14:25: Lactic Acid Level 1.41 Exam Exam Vital Signs Date Time Temp Pulse Resp B/P (MAP) Pulse Ox O2 Delivery O2 Flow Rate FiO2 09/25/18 07:25 91 Room Air 0.00 09/25/18 03:55 97.7 72 18 150/92 (111) 90 Room Air 09/25/18 00:14 97.8 71 18 147/82 (103) 92 Room Air 09/24/18 20:55 95 Nasal Cannula 2.00 09/24/18 20:00 Nasal Cannula 2.00 09/24/18 19:36 96.9 70 18 130/76 (94) 96 Room Air 09/24/18 15:50 96.0 65 20 141/83 (102) 95 Room Air 09/24/18 12:00 97.4 76 18 124/68 (86) 93 Nasal Cannula 2.00 09/24/18 08:25 Nasal Cannula 2.00 09/24/18 08:00 97.2 62 18 138/89 (105) 93 Nasal Cannula 2.00 I & O 09/25/18 07:00 Intake Total 1080 ml Balance 1080 ml Height & Weight Height: 5'7.00" Weight: 169lbs. 1.0oz. 76.285454co; 26.5 BMI Method:Stated General Appearance: No Apparent Distress, WD/WN, Chronically ill HEENT: PERRL/EOMI Neck: Full Range of Motion Respiratory: No Accessory Muscle Use, No Respiratory Distress Cardiovascular: Regular Rate, Rhythm, Normal Peripheral Pulses Capillary Refill: Less Than 3 Seconds Extremity: Normal Capillary Refill, Normal Inspection Neurologic/Psychiatric: Alert, Normal Mood/Affect Skin: Normal Color, Warm/Dry Lymphatic: No Adenopathy Results Lab Laboratory Tests 09/24/18 04:35 Assessment/Plan Assessment/Plan Large right pleural effusion with opacification probably secondary to lymphoma -Oxygen Severe dementia -Monitor Non-hodgkin Lymphoma hx possible discharge to [facility] with hospice. NAILA TORRES DO Sep 25, 2018 07:34
[2018-09-25 08:00] VITALS: BP 142/86
--- NOTE | 2018-09-25 08:02 | Progress Note (SOAP) ---
Subjective Time Seen by a Provider: 08:00 Subjective/Events-last exam patient. To be discharged today to [facility]. Patient to be under the care of hosp[facility]. Patient more alert today than previous days. Focused Exam Lactate Level 09/22/18 11:59: Lactic Acid Level 3.01*H 09/22/18 14:25: Lactic Acid Level 1.41 Objective Exam Vital Signs Date Time Temp Pulse Resp B/P (MAP) Pulse Ox O2 Delivery O2 Flow Rate FiO2 09/25/18 07:25 91 Room Air 0.00 09/25/18 03:55 97.7 72 18 150/92 (111) 90 Room Air 09/25/18 00:14 97.8 71 18 147/82 (103) 92 Room Air 09/24/18 20:55 95 Nasal Cannula 2.00 09/24/18 20:00 Nasal Cannula 2.00 09/24/18 19:36 96.9 70 18 130/76 (94) 96 Room Air 09/24/18 15:50 96.0 65 20 141/83 (102) 95 Room Air 09/24/18 12:00 97.4 76 18 124/68 (86) 93 Nasal Cannula 2.00 09/24/18 08:25 Nasal Cannula 2.00 I & O 09/25/18 07:00 Intake Total 1080 ml Balance 1080 ml Capillary Refill : Less Than 3 Seconds General Appearance: No Apparent Distress, WD/WN HEENT: Normal ENT Inspection Neck: Full Range of Motion Respiratory: No Accessory Muscle Use, No Respiratory Distress, Other (right pleural effusion) Cardiovascular: Regular Rate, Rhythm, No Murmur Gastrointestinal: non tender, soft Results Lab Microbiology 09/22/18 Blood Culture - Preliminary, Resulted No growth Assessment/Plan Assessment/Plan Assess & Plan/Chief Complaint Dementia. Right lung pleural effusion. History of non-Hodgkin's lymphoma. Family considering hospice much. Family and sure of home versus [facility]. . 09/25/18. Right lung pleural effusion. Dementia. History of non-Hodgkin's lymphoma. Patient to start hospice today with [facility]. Patient to be discharged to [facility] Clinical Quality Measures Admission Status Admission Dx Dyspnea. Recurrent right pleural effusion. History of much Hodgkin's lymphoma. Weakness. Decreased appetite decreased fluid intake. Dementia DVT/VTE Risk/Contraindication: Risk Factor Score Per Nursin RFS Level Per Nursing on Admit: 4+=Very High Contraindications-Pharm: Other *list below* EDSON STRONG DO Sep 25, 2018 08:02
--- NOTE | 2018-09-25 08:05 | Discharge Inst-Skilled Nursing ---
Discharge Inst-Skilled NF Patient Instructions Patient Problems: 2 office next Saturday. Patient has less than 6 months to live. Dementia. Right pleural effusion. Non-Hodgkin's lymphoma history Consult/Follow Up/Orders Follow Up Appt.: 2 office next Saturday Skilled NF Admit to: [facility] Certification ([facility]) I certify that SNF services are required to be given on an inpatient basis because of the above named patient's need for [facility]p care on a continuing basis for the conditions(s) for which he/she was receiving inpatient hospital services prior to his/her transfer to the SNF. New & Resume Previous Orders Mario Strong Sep 25, 2018 08:04 MARIO STRONG DO Sep 25, 2018 08:05
[2018-09-25] MEDS: ASPIRIN E.C. 81 MG (ECOTRIN) TAB PO SCH (08:26)
[2018-09-25] MEDS: MEMANTINE 5 MG (NAMENDA) TABLET PO SCH (08:26)
--- NOTE | 2018-09-25 09:29 | NUR ---
DISCHARGE PLANNING: Patient is discharged today to new placement at [facility] with [facility]. Family to transport. Unfinalized orders sent to both agencies. Have spoken with [facility] and left message for Yeimy Sanches at -. Family is running errands now and will be back later for transport to facility.
--- NOTE | 2018-09-25 11:47 | NUR ---
REPORT CALLED TO SUSU (ALIZA MOORE) MARCELLA AT THIS TIME. THIS RN WILL CONT. TO MONITOR THIS PATIENT THROUGHOUT THE REMAINDER OF HIS STAY UNTIL DISCHARGED.
[2018-09-25 12:00] VITALS: BP 142/86
--- NOTE | 2018-09-26 07:33 | Discharge Summary ---
Diagnosis/Chief Complaint Date of Admission Sep 22, 2018 at 12:59 Date of Discharge Sep 25, 2018 at 12:10 Discharge Date: Sep 25, 2018 Discharge Diagnosis Hydration. Dementia. Weakness. Non-Hodgkin's lymphoma. Right pleural effusion. Hyperlipidemia. Hypertension Reason Hospital Visit Patient was brought to the office by DPOA Patient has been weak. Patient tolerated and not eating or taking fluids. Patient has history of right pleural effusion. Patient has history of non-Hodgkin's lymphoma years ago. Patient has dementia. Patient unable to make any decisions.. Patient sent out to the emergency room. Patient admitted. Patient's daughter, from [place]. Patient's daughter may not want thoracentesis. Patient uses fentanyl patch for his pain which works.. Discharge Summary Consultations Pulmonology Discharge Physical Examination Allergies: Coded Allergies: No Known Drug Allergies (Unverified , 10/23/11) Vitals & I&Os Vital Signs Date Time Temp Pulse Resp B/P (MAP) Pulse Ox O2 Delivery O2 Flow Rate FiO2 09/25/18 12:00 70 18 142/86 91 Nasal Cannula 2.00 09/25/18 08:00 97.8 Hospital Course Daughter and DPOA did not want thoracentesis. Daughter wanted hospice. Patient transferred to [facility]. Labs (last 24 hrs) Laboratory Tests 09/22/18 11:59: White Blood Count 9.0, Red Blood Count 4.82, Hemoglobin 15.3, Hematocrit 46, Mean Corpuscular Volume 94, Mean Corpuscular Hemoglobin 32, Mean Corpuscular Hemoglobin Concent 34, Red Cell Distribution Width 14.3, Platelet Count 289, Mean Platelet Volume 10.6H, Neutrophils (%) (Auto) 85H, Lymphocytes (%) (Auto) 8L, Monocytes (%) (Auto) 6, Eosinophils (%) (Auto) 1, Basophils (%) (Auto) 0, Neutrophils # (Auto) 7.6, Lymphocytes # (Auto) 0.7L, Monocytes # (Auto) 0.6, Eosinophils # (Auto) 0.1, Basophils # (Auto) 0.0, Neutrophils % (Manual) 82, Lymphocytes % (Manual) 3, Monocytes % (Manual) 10, Eosinophils % (Manual) 1, Reactive Lymphocytes 4, Crenated Cell MODERATE, Sodium Level 137, Potassium Level 3.9, Chloride Level 98, Carbon Dioxide Level 20L, Anion Gap 19H, Blood Urea Nitrogen 20H, Creatinine 0.88, Estimat Glomerular Filtration Rate > 60, BUN /Creatinine Ratio 23, Glucose Level 138H, Lactic Acid Level 3.01*H, Calcium Level 10.2H, Corrected Calcium 10.1, Total Bilirubin 1.9H, Aspartate Amino Transf (AST/SGOT) 27, Alanine Aminotransferase (ALT/SGPT) 16, Alkaline Phosphatase 87, Troponin I < 0.028, B-Type Natriuretic Peptide 79.4, Total Protein 7.3, Albumin 4.1 09/22/18 14:25: Lactic Acid Level 1.41 09/23/18 05:49: White Blood Count 6.7, Red Blood Count 4.60, Hemoglobin 14.2, Hematocrit 44, Mean Corpuscular Volume 95, Mean Corpuscular Hemoglobin 31, Mean Corpuscular Hemoglobin Concent 33, Red Cell Distribution Width 14.0, Platelet Count 206, Mean Platelet Volume 10.5H, Neutrophils (%) (Auto) 74, Lymphocytes (%) (Auto) 13 , Monocytes (%) (Auto) 12, Eosinophils (%) (Auto) 2, Basophils (%) (Auto) 0, Neutrophils # (Auto) 4.9, Lymphocytes # (Auto) 0.8L, Monocytes # (Auto) 0.8, Eosinophils # (Auto) 0.1, Basophils # (Auto) 0.0, Sodium Level 133L, Potassium Level 3.9, Chloride Level 98, Carbon Dioxide Level 23, Anion Gap 12, Blood Urea Nitrogen 18, Creatinine 0.77, Estimat Glomerular Filtration Rate > 60, BUN/ Creatinine Ratio 23, Glucose Level 79, Calcium Level 9.3, Corrected Calcium 9.5 , Total Bilirubin 1.7H, Aspartate Amino Transf (AST/SGOT) 26, Alanine Aminotransferase (ALT/SGPT) 16, Alkaline Phosphatase 74, Total Protein 6.4, Albumin 3.7 09/24/18 04:35: White Blood Count 5.3, Red Blood Count 3.85L, Hemoglobin 12.1L, Hematocrit 37L, Mean Corpuscular Volume 95, Mean Corpuscular Hemoglobin 31, Mean Corpuscular Hemoglobin Concent 33, Red Cell Distribution Width 14.0, Platelet Count 174, Mean Platelet Volume 10.6H, Sodium Level 134L, Potassium Level 3.9, Chloride Level 100, Carbon Dioxide Level 25, Anion Gap 9, Blood Urea Nitrogen 18, Creatinine 0.69, Estimat Glomerular Filtration Rate > 60, BUN/Creatinine Ratio 26, Glucose Level 89, Calcium Level 8.7 Microbiology 09/22/18 Blood Culture - Preliminary, Resulted No growth Laboratory Tests 09/22/18 11:59 09/23/18 05:49 09/24/18 04:35 Pending Labs Microbiology Date/Time Source Procedure Growth Status 09/22/18 12:09 Peripheral Rt Ac Blood Culture - Preliminary No growth Resulted 09/22/18 11:59 Peripheral Jugular Blood Culture - Preliminary No growth Resulted Laboratory Tests 09/22/18 11:59: White Blood Count 9.0, Red Blood Count 4.82, Hemoglobin 15.3, Hematocrit 46, Mean Corpuscular Volume 94, Mean Corpuscular Hemoglobin 32, Mean Corpuscular Hemoglobin Concent 34, Red Cell Distribution Width 14.3, Platelet Count 289, Mean Platelet Volume 10.6, Neutrophils (%) (Auto) 85, Lymphocytes (%) (Auto) 8, Monocytes (%) (Auto) 6, Eosinophils (%) (Auto) 1, Basophils (%) (Auto) 0, Neutrophils # (Auto) 7.6, Lymphocytes # (Auto) 0.7, Monocytes # (Auto) 0.6, Eosinophils # (Auto) 0.1, Basophils # (Auto) 0.0, Neutrophils % (Manual) 82, Lymphocytes % (Manual) 3, Monocytes % (Manual) 10, Eosinophils % (Manual) 1, Reactive Lymphocytes 4, Crenated Cell MODERATE, Sodium Level 137, Potassium Level 3.9, Chloride Level 98, Carbon Dioxide Level 20, Anion Gap 19, Blood Urea Nitrogen 20, Creatinine 0.88, Estimat Glomerular Filtration Rate > 60, BUN/ Creatinine Ratio 23, Glucose Level 138, Lactic Acid Level 3.01, Calcium Level 10.2, Corrected Calcium 10.1, Total Bilirubin 1.9, Aspartate Amino Transf (AST/ SGOT) 27, Alanine Aminotransferase (ALT/SGPT) 16, Alkaline Phosphatase 87, Troponin I < 0.028, B-Type Natriuretic Peptide 79.4, Total Protein 7.3, Albumin 4.1 09/22/18 14:25: Lactic Acid Level 1.41 09/23/18 05:49: White Blood Count 6.7, Red Blood Count 4.60, Hemoglobin 14.2, Hematocrit 44, Mean Corpuscular Volume 95, Mean Corpuscular Hemoglobin 31, Mean Corpuscular Hemoglobin Concent 33, Red Cell Distribution Width 14.0, Platelet Count 206, Mean Platelet Volume 10.5, Neutrophils (%) (Auto) 74, Lymphocytes (%) (Auto) 13 , Monocytes (%) (Auto) 12, Eosinophils (%) (Auto) 2, Basophils (%) (Auto) 0, Neutrophils # (Auto) 4.9, Lymphocytes # (Auto) 0.8, Monocytes # (Auto) 0.8, Eosinophils # (Auto) 0.1, Basophils # (Auto) 0.0, Sodium Level 133, Potassium Level 3.9, Chloride Level 98, Carbon Dioxide Level 23, Anion Gap 12, Blood Urea Nitrogen 18, Creatinine 0.77, Estimat Glomerular Filtration Rate > 60, BUN/ Creatinine Ratio 23, Glucose Level 79, Calcium Level 9.3, Corrected Calcium 9.5 , Total Bilirubin 1.7, Aspartate Amino Transf (AST/SGOT) 26, Alanine Aminotransferase (ALT/SGPT) 16, Alkaline Phosphatase 74, Total Protein 6.4, Albumin 3.7 09/24/18 04:35: White Blood Count 5.3, Red Blood Count 3.85, Hemoglobin 12.1, Hematocrit 37, Mean Corpuscular Volume 95, Mean Corpuscular Hemoglobin 31, Mean Corpuscular Hemoglobin Concent 33, Red Cell Distribution Width 14.0, Platelet Count 174, Mean Platelet Volume 10.6, Sodium Level 134, Potassium Level 3.9, Chloride Level 100, Carbon Dioxide Level 25, Anion Gap 9, Blood Urea Nitrogen 18, Creatinine 0.69, Estimat Glomerular Filtration Rate > 60, BUN/Creatinine Ratio 26, Glucose Level 89, Calcium Level 8.7 Discharge Home Medications: Active Scripts Active Reported Donepezil HCl 10 Mg Tablet 10 Mg PO HS Fentanyl Patch 25 MCG (Fentanyl) 1 Each Patch.td72 25 Mcg TD Q72H Aspirin EC (Aspirin) 81 Mg Tablet.dr 81 Mg PO DAILY Preservision Areds Softgel (Vit A/C/E/Zinc/Co) 1 Cap Capsule 1 Cap PO BID Memantine HCl ER (Memantine HCl) 14 Mg Cap.spr.24 14 Mg PO DAILY Escitalopram Oxalate 10 Mg Tablet 10 Mg PO DAILY Atorvastatin Calcium 10 Mg Tablet 10 Mg PO HS Instructions to patient/family Please see electronic discharge instructions given to patient. Clinical Quality Measures DVT/VTE Risk/Contraindication: Risk Factor Score Per Nursin RFS Level Per Nursing on Admit: 4+=Very High Contraindications-Pharm: Other *list below* EDSON STRONG DO Sep 26, 2018 07:32
== END 2018-09-25 12:10 | disposition hospice, inpatient (51) | DRG 841 ==
LOC: EDUNIT# 11:36 → ER 11:38 → 4TH 12:59
PROVIDERS: ADMIT Family Medicine; ATTEND Family Medicine
DX: C85.90 Non-Hodgkin lymphoma, unspecified, unspecified site (principal); J90 Pleural effusion, not elsewhere classified; I10 Essential (primary) hypertension; E78.00 Pure hypercholesterolemia, unspecified; E78.5 Hyperlipidemia, unspecified; Z66 Do not resuscitate; Z51.5 Encounter for palliative care; E86.0 Dehydration; F03.90 Unspecified dementia, unspecified severity, without behavioral disturbance, psychotic disturbance, mood disturbance, and anxiety; R53.1 Weakness; Z92.21 Personal history of antineoplastic chemotherapy; Z86.73 Personal history of transient ischemic attack (TIA), and cerebral infarction without residual deficits
CPT/HCPCS: 36415; 71045; 80048; 80053; 83605; 83880; 84484; 85007; 85025; 85027; 87040; 93005; 93306; 94640; 94760

== ENCOUNTER → 2018-10-22 | Outpatient (CLI) | payer MEDICARE, OTHER ==
[~2018-10-22] MED LIST changes: +ASPI-983 PO; +DONE10TA41 PO; +FENT1PAT8 TD
--- NOTE | 2018-10-22 10:33 | Diagnostic Imaging Report ---
INDICATION: Fall with right rib pain. TIME OF EXAM: 9:34 AM FINDINGS: The right hemithorax is opacified, correlating with prior chest radiograph from 09/23/2018. No displaced rib fractures identified. IMPRESSION: 1. No displaced rib fractures detected. 2. Opacified right hemithorax. Dictated by: Dictated on workstation # [id number]
== END ==
LOC: RAD 09:11
PROVIDERS: ATTEND Family Medicine
DX: R07.81 Pleurodynia (principal); R91.8 Other nonspecific abnormal finding of lung field; W19.XXXA Unspecified fall, initial encounter
CPT/HCPCS: 71100

== ENCOUNTER → 2018-10-23 | Outpatient (CLI) | payer MEDICARE, OTHER ==
--- NOTE | 2018-10-23 18:43 | Diagnostic Imaging Report ---
INDICATION: Left-sided chest pain. COMPARISON: 09/23/2018. FINDINGS: Complete whiteout of the right hemithorax redemonstrated with leftward displacement of the partially effaced and distorted lower trachea and keon. The left lung is clear. Left chest wall is unremarkable. No left-sided pleural fluid. IMPRESSION: Complete right chest whiteout with contralateral cardiomediastinal displacement and a negative left chest. Findings are unchanged from prior. Dictated by: Dictated on workstation # [id number]
== END ==
LOC: RAD 16:21
PROVIDERS: ATTEND Family Medicine
DX: R07.89 Other chest pain (principal)
CPT/HCPCS: 71046